=== PATIENT | male | born 1955 | race Caucasian/White ===

== ENCOUNTER 2023-04-25 14:04 | Emergency (ER) | payer MEDICARE, OTHER, SELFPAY ==
--- NOTE | ~2023-04-25 | XR_ITS ---
EXAMINATION: XR chest 2V Exam Date/Time: 04/25/2023 14:20 CDT HISTORY: cough/wheezing x 1 month post covid Comparison: 11/26/2018. RESULT: Lines, tubes, and devices: Left chest pacer with intact leads. Lungs and pleura: Clear. Cardiomediastinal silhouette: Stable. Other: No acute osseous or upper abdominal finding. IMPRESSION: No acute cardiopulmonary process. Reviewed, dictated and finalized at location K.
[2023-04-25 14:18] VITALS: BP 168/85; PULSE 102; RESP 18; TEMP 36.9; O2SAT 96
--- NOTE | 2023-04-25 14:28 | ED.GENADULT ---
HPI - General Adult General Chief complaint: Upper Respiratory Infection Stated complaint: wheezing,cough Source: patient and family Mode of arrival: ambulatory Limitations: no limitations History of Present Illness HPI narrative: Patient presents for evaluation of respiratory symptoms since the end of March. He indicates he tested positive for COVID at the end of March but has had residual respiratory symptoms since that time. Symptoms include productive cough of yellow sputum, shortness of breath, and wheezing. Denies any fever, chills, nausea, vomiting, chest pain or leg swelling. He has an albuterol inhaler and has been using it about every 4 hours. He is a former smoker, with quit date about forty years ago. No recent sick contacts since his COVID diagnosis. Related Data Home Medications Medication Instructions Recorded Confirmed albuterol sulfate 90 mcg/actuation 2 puff inhalation Q4H PRN Wheezing 04/25/23 04/25/23 aerosol inhaler aspirin 81 mg chewable tablet 81 mg PO DAILY 04/25/23 04/25/23 finasteride 5 mg tablet 5 mg PO DAILY 04/25/23 04/25/23 fluticasone propionate 50 See Rx Instructions .Route .COMPLEX 04/25/23 04/25/23 mcg/actuation nasal spray,suspension simvastatin 20 mg tablet 20 mg PO DAILY 04/25/23 04/25/23 tamsulosin 0.4 mg capsule 0.4 mg PO DAILY 04/25/23 04/25/23 Allergies Allergy/AdvReac Type Severity Reaction Status Date / Time Sulfa (Sulfonamide Allergy Intermediate hives Verified 04/25/23 14:21 Antibiotics) Review of Systems Review of Systems: CONSTITUTIONAL: Denies fever, chills, or sweats. EYES: Denies visual changes, redness, or discharge. ENT: Denies rhinorrhea, congestion, sore throat, or otalgia. CARDIOVASCULAR: Denies chest pain, palpitations, or edema. RESPIRATORY: reports cough, shortness of breath and wheezing. GASTROINTESTINAL: Denies abdominal pain, nausea, vomiting, or diarrhea. GENITOURINARY: Denies dysuria or hematuria. SKIN: Denies rash or itching. MUSCULOSKELETAL: Denies back pain, joint pain, or myalgia. NEUROLOGIC: Denies headache, numbness, dizziness, or weakness. PSYCHIATRIC: Denies anxiety or depression. [facility] Past Medical History Medical History Hyperlipidemia Surgical History Surgical History History of permanent cardiac pacemaker placement Family History Family History (Updated 04/25/23 @ 15:34 by Helder He [facility], ) Mother Family history non-contributory Social History Social History Smoking status: Former smoker Substance use: never Living arrangements: with family Gender identity (if verbalized by the patient): Male Sexual Orientation (if Verbalized by the Patient): Straight or Heterosexual Spiritual care concerns: No Exam Narrative: GENERAL: Well-appearing, well-nourished, and in no acute distress. HEAD: Normocephalic, atraumatic. EYES: PERRLA and EOMI. ENT: Nares clear, no rhinorrhea or epistaxis. Mucous membranes moist. Oropharynx without tonsillar hypertrophy exudate or other lesions. Bilateral TMs pearly guerin nonbulging NECK: Supple. No adenopathy or masses. No carotid bruits or JVD CHEST: Clear to auscultation. No respiratory distress. No wheezes rales or rhonchi HEART: Regular rate and rhythm. No murmur heard. Normal peripheral pulses. ABDOMEN: Soft, nontender, nondistended, normal active bowel sounds. EXTREMITIES: Normal range of motion. No edema. SKIN: Warm, dry, no rash. NEURO: No focal deficits. Alert and oriented x3. PSYCH: Normal mood and affect. Course Course Emergency Course: This is a 67-year-old female who presented for evaluation of respiratory symptoms following COVID. He was tachycardic during the time of his initial vital signs, however on my exam his heart rate normalized. CXR perfor
[2023-04-25] MEDS: ALBUTEROL SULFATE NEB 2.5 MG/3 ML INH INHALATION (14:53)
[2023-04-25] MEDS: methylPREDNISolone SOD SUCC 125 MG VIAL IM (14:54)
[2023-04-25] MEDS: IPRATROPIUM BR 0.02% INH SOLN 0.5 MG/2.5 ML VIAL INHALATION (14:54)
--- NOTE | 2023-04-25 14:56 | PC.NURSE ---
1453 Scanner unavailable to scan medications, patient verified by name and birthdate; meds checked and verified by 2nd person before administering.
[2023-04-25 15:13] VITALS: PULSE 88; RESP 18; O2SAT 97
== END 2023-04-25 15:25 | disposition home or self-care (01) ==
PROVIDERS: Emergency Provider Nurse Practitioner
DX: R06.02 Shortness of breath (principal); E78.5 Hyperlipidemia, unspecified; Z79.899 Other long term (current) drug therapy; Z79.82 Long term (current) use of aspirin; Z87.891 Personal history of nicotine dependence; Z86.16 Personal history of COVID-19
CPT/HCPCS: 71046; 94640; 96372; 99213; G0463; J2930

== ENCOUNTER 2023-07-01 08:43 | Emergency (ER) | payer MEDICARE, OTHER, SELFPAY ==
--- NOTE | ~2023-07-01 | XR_ITS ---
EXAMINATION: XR chest 2V DATE: 07/01/2023 09:33 INDICATION: Fever, cough, and congestion. TECHNIQUE: Frontal and lateral views of the chest were obtained. COMPARISON: Chest 2 views 04/25/2023, chest CT 11/24/2018 FINDINGS: There is mild atelectasis at the lung bases. No pleural effusion or pneumothorax. The heart size is normal. There is a left chest wall pacer with leads in the right atrium and right ventricle. IMPRESSION: 1. Mild atelectasis at the lung bases. Reviewed, dictated and finalized at location A. OND BLENDER
[2023-07-01 09:05] VITALS: BP 158/75; PULSE 72; RESP 16; TEMP 36.7; O2SAT 98
--- NOTE | 2023-07-01 09:15 | ED.URI ---
HPI - URI/Sore Throat General Chief Complaint: Upper Respiratory Infection Stated Complaint: Cough;Fever Time Seen by Provider: 07/01/23 09:10 Source: patient Mode of arrival: ambulatory Limitations: no limitations History of Present Illness HPI Narrative: Jose is a 68-year-old male patient presenting to the clinic today with complaints of cough and fever times 2-3 days. He reports he did at home COVID testing was negative. Cough is nonproductive. denies any shortness of breath currently but states when he gets to coughing he does feel short of breath. States fever last night was high as 101. No history of asthma, bronchitis, or COPD. MD elicited complaint: fever, cough and nasal congestion Related Data Home Medications Medication Instructions Recorded Confirmed albuterol sulfate 90 mcg/actuation 2 puff inhalation Q4H PRN Wheezing 04/25/23 07/01/23 aerosol inhaler aspirin 81 mg chewable tablet 81 mg PO DAILY 04/25/23 07/01/23 finasteride 5 mg tablet 5 mg PO DAILY 04/25/23 07/01/23 fluticasone propionate 50 See Rx Instructions .Route .COMPLEX 04/25/23 07/01/23 mcg/actuation nasal spray,suspension simvastatin 20 mg tablet 20 mg PO DAILY 04/25/23 07/01/23 tamsulosin 0.4 mg capsule 0.4 mg PO DAILY 04/25/23 07/01/23 cholecalciferol (vitamin D3) 25 50 mcg PO DAILY 06/23/23 07/01/23 mcg (1,000 unit) capsule dapagliflozin propanediol 5 mg 5 mg PO DAILY 06/23/23 07/01/23 tablet (Farxiga) lisinopril 10 mg tablet 10 mg PO .PRN 06/23/23 07/01/23 Allergies Allergy/AdvReac Type Severity Reaction Status Date / Time Sulfa (Sulfonamide Allergy Intermediate hives Verified 07/01/23 09:00 Antibiotics) Review of Systems Review of Systems: Pertinent positives per HPI. Patient denies any rash, headache, visual changes, dizziness, shortness of breath, chest pain, palpitations, nausea, vomiting, diarrhea, constipation, abdominal pain, or any urinary issues. [facility] Past Medical History Medical History (Updated 07/01/23 @ 09:46 by Sekou Reynoso APRN) FSGS (focal segmental glomerulosclerosis) Hyperlipidemia Surgical History Surgical History History of permanent cardiac pacemaker placement Family History Family History (Updated 04/25/23 @ 15:34 by Helder He, [facility], ) Mother Family history non-contributory Social History Social History (Updated 06/23/23 @ 11:03 by Fifi Gallardo MA) Smoking status: Former smoker Substance use: never Do You Feel Safe in your Home?: Yes Lack of Transportation: No Lack of Food: Never True Current Housing: I Have Housing Concerned About Future Housing: No Difficulty Paying Gas/Electric Bills: No Difficulty Paying for Meds: No Currently Unemployed: No Education: High School Diploma/GED Difficulty w/ Childcare or Family Care: No Living arrangements: with family Gender identity (if verbalized by the patient): Male Sexual Orientation (if Verbalized by the Patient): Straight or Heterosexual Spiritual care concerns: No Comments At the time of my signature, I reviewed and agree with the nursing past medical, surgical, social, and family history. There is no relevant family history pertinent to the patient complaint. Exam Narrative: General: Well-developed, well nourished, in no apparent distress Head: Normocephalic, atraumatic Eyes: Pupils equally round and reactive to light bilaterally, EOM intact, sclera and conjunctive clear, no discharge, lids normal Ears: TMs intact and clear, ear canals clear, no drainage, grossly hearing normal. Nose: Nares patent, clear nasal discharge, no inflammation, no sinus tenderness. Mouth: Oral pharynx without lesions or masses, good dentition, MMM. Neck: Supple, trachea midline, no enlargement of anterior or posterior cervical nodes, no thyroid masses or goiter palpable. Cardio: Regular rate and rhythm, s1 and s2 normal, no
== END 2023-07-01 09:50 | disposition home or self-care (01) ==
PROVIDERS: Emergency Provider Nurse Practitioner Family; PCP Student in an Organized Health Care Education/Training Program
DX: B34.9 Viral infection, unspecified (principal); J06.9 Acute upper respiratory infection, unspecified; E78.5 Hyperlipidemia, unspecified; Z79.899 Other long term (current) drug therapy; Z87.891 Personal history of nicotine dependence
CPT/HCPCS: 71046; 87804; 99213; G0463

== ENCOUNTER 2024-07-03 09:14 | Emergency (ER) | payer MEDICARE, OTHER, SELFPAY ==
[2024-07-03] VITALS (43 sets, daily range): BP systolic 133–167; BP diastolic 45–142; PULSE 62–86; RESP 10–24; TEMP 36.7–37.2; O2SAT 93–100
[2024-07-03 09:46] LABS: Basophils Absolute Auto 0.1 K/mm3 (0.0-0.1); Basophils Percent Auto 0.9 % (0.2-1.2); Eosinophils Absolute Auto 0.3 K/mm3 (0-0.3); Eosinophils Percent Auto 3.5 % (0-4.4); Hematocrit 23.6 % (42.0-52.0); Immature Granulocyte Absolute 0.06 K/mm3 (0.00-0.031); Immature Granulocyte Percent A 0.7 % (0-0.5); Lymphocytes Absolute Auto 0.71 K/mm3 (0.9-3.2); Lymphocytes Percent Auto 8.2 % (18.3-44.2); Mean Corpuscular Hemoglobin 19.5 pg (26-34); Mean Corpuscular Volume 69.8 fl (80-100); Mean Platelet Volume 9.4 fl (7.4-10.4); Monocytes Absolute Auto 0.7 K/mm3 (0.1-0.6); Monocytes Percent Auto 7.5 % (2.6-8.5); Neutrophils Absolute Auto 6.8 K/mm3 (1.3-6.7); Neutrophils Percent Auto 79.2 % (45.5-73.1); Platelet Count Result 297 k/mm3 (150-375); Red Blood Count 3.38 M/mm3 (4.6-6.20); Red Cell Distribution Width 15.5 % (11.5-14.5); White Blood Count 8.6 K/mm3 (4.5-10.0)
[2024-07-03 09:54] LABS: Hemoglobin 6.6 g/dL (14.0-18.0)
[2024-07-03 09:57] LABS: Alanine Aminotransferase 16 U/L (6-50); Albumin Level 3.8 g/dL (3.5-5.1); Alkaline Phosphatase 68 U/L (38-126); Anion Gap 5 mmol/L (4-12); Aspartate Amino Transferase 20 U/L (17-59); Bilirubin,Total 0.5 mg/dL (0.2-1.3); Blood Urea Nitrogen 25 mg/dL (9-20); Calcium 10.4 mg/dL (8.4-10.2); Carbon Dioxide 21 mmol/L (22-30); Chloride 108 mmol/L (98-107); Estimated CRCL calculation 40 ml/min; Estimated Glomerular Filt Rate 43; Glucose 178 mg/dL (65-110); Sodium 134 mmol/L (137-145)
[2024-07-03 10:02] LABS: Anisocytosis 1+; Hypochromasia 2+; Microcytosis 1+ (NORMAL); Ovalocytes 1+; Platelet Estimate Adequate (Adequate); Schistocytes None Seen
[2024-07-03 10:04] LABS: Prothrombin Time 13.8 Seconds (11.1-14.7)
[2024-07-03 11:55] LABS: Immature Reticulocyte Fraction 24.2 % (3.0-15.9); Reticulocyte Hemoglobin Conten 15.3 pg (28.2-36.6); Reticulocyte Percent 2.34 % (0.7-4.3); Reticulocytes Absolute 0.08 10^6/uL (0.02-0.10)
[2024-07-03 12:07] LABS: Iron 12 ug/dL (49-181)
[2024-07-03 12:16] LABS: Percent Iron Saturation 2 % (20-50); TOTAL IRON BINDING CAPACITY 509 ug/dL (265-497)
[2024-07-03] MEDS: SODIUM CHLORIDE 0.9% IV 250 ML 30 ML IV CONT (12:48)
[2024-07-03] MEDS: TUBING, BLOOD SET 1 EACH XX (12:49)
[2024-07-03 16:12] LABS: Hemoglobin 7.5 g/dL (14.0-18.0)
--- NOTE | 2024-07-03 17:15 | ED_ITS ---
HPI - General Adult General Chief complaint: Recheck/Abnormal Lab/Rx Stated complaint: low hgb Time Seen by Provider: 07/03/24 09:21 Source: patient and family Mode of arrival: ambulatory Limitations: no limitations History of Present Illness HPI narrative: 69-year-old with a history of hypertension, diabetes here with a complaint of low hemoglobin. Patient states he had a routine blood work done few days ago and was called by his primary doctor with the emergency room. He states his hemoglobin was 6.6. He denies having any abdominal pain, black color stool or rectal bleeding. Patient states that he had colonoscopy recently which was normal and also had a Cologuard test which was negative. He denies being lightheaded or dizzy. Onset (ago): day(s) (1) Related Data Home Medications ?Medication ?Instructions ?Recorded ?Confirmed ?Last Taken ?Type albuterol sulfate 90 mcg/actuation 2 puff inhalation Q4H PRN Wheezing 04/25/23 01/05/24 Unknown History aerosol inhaler aspirin 81 mg chewable tablet 81 mg PO DAILY 04/25/23 01/05/24 Unknown History finasteride 5 mg tablet 5 mg PO DAILY 04/25/23 01/05/24 Unknown History fluticasone propionate 50 See Rx Instructions .Route .COMPLEX 04/25/23 01/05/24 Unknown History mcg/actuation nasal spray,suspension simvastatin 20 mg tablet 20 mg PO DAILY 04/25/23 01/05/24 Unknown History tamsulosin 0.4 mg capsule 0.4 mg PO DAILY 04/25/23 01/05/24 Unknown History cholecalciferol (vitamin D3) 25 50 mcg PO DAILY 06/23/23 01/05/24 Unknown History mcg (1,000 unit) capsule dapagliflozin propanediol 5 mg 5 mg PO DAILY 06/23/23 01/05/24 Unknown History tablet (Farxiga) lisinopril 10 mg tablet 10 mg PO .PRN 06/23/23 01/05/24 Unknown History Allergies Allergy/AdvReac Type Severity Reaction Status Date / Time Sulfa (Sulfonamide Allergy Intermediate hives Verified 07/03/24 09:26 Antibiotics) Review of Systems 2 Review of Systems: All systems reviewed & are unremarkable except as noted in HPI and below Constitutional: Constitutional: Reports no additional constitutional complaints Eyes: Eyes: Reports no additional eye complaints ENT: Reports system reviewed and no additional complaints, except as documented Cardiovascular: Cardiovascular: Reports no additional cardiovascular complaints Respiratory: Respiratory: Reports no additional respiratory complaints Gastrointestinal: Gastrointestinal: Reports no additional gastrointestinal complaints Genitourinary: Genitourinary: Reports no additional male genitourinary complaints Musculoskeletal: Musculoskeletal: Reports no additional musculoskeletal complaints Integumentary/Breasts: Skin/Breast: Reports system reviewed and no additional complaints, except as docu Neurologic: Reports system reviewed and no additional complaints, except as documented PMFSH Past Medical History Medical History FSGS (focal segmental glomerulosclerosis) Hyperlipidemia Surgical History Surgical History History of permanent cardiac pacemaker placement Family History Family History Mother Family history non-contributory Social History Social History (Updated 06/23/23 @ 11:03 by Fifi Gallardo MA) Smoking status: Former smoker Substance use: never Do You Feel Safe in your Home?: Yes Lack of Transportation: No Lack of Food: Never True Current Housing: I Have Housing Concerned About Future Housing: No Difficulty Paying Gas/Electric Bills: No Difficulty Paying for Meds: No Currently Unemployed: No Education: High School Diploma/GED Difficulty w/ Childcare or Family Care: No Living arrangements: with family Gender identity (if verbalized by the patient): Male Sexual Orientation (if Verbalized by the Patient): Straight or Heterosexual Spiritual care concerns: No Exam 2 Narrative: GENERAL: Well-appearing, well-nourished, and in no acute distress. HEAD: Normocephalic, atraumatic. EYES: PERRLA and EOMI. ENT: Nares clear, no rhinorrhea or epistaxis. Mucous membranes moist. NECK: Supple. CHEST: Clear to auscultation. No respiratory distress. HEART: Regular rate and rhythm. No murmur heard. Normal peripheral pulses. ABDOMEN: Soft, nontender, nondistended, normal active bowel sounds. EXTREMITIES: Normal range of motion. No edema. SKIN: Warm, dry, no rash. NEURO: No focal deficits. Alert and oriented x3. PSYCH: Normal mood and affect. Course Course Emergency Course: Patient came with a low hemoglobin. His physical exam was unremarkable has no GI bleed . Will transfuse him with 1 unit of PRBC. His rpt H/H is 7.5 /26 he is feeling much better , Did inform him about his Iron levels which are low recommended to follow with his PMD in the next few days . Notified Oncall Dr. Taj Anna will follow up in the office. Vital Signs Vital signs: Vital Signs Temperature 37.0 C 07/03/24 09:22 Pulse Rate 77 07/03/24 09:22 Respiratory Rate 20 07/03/24 09:22 Blood Pressure 154/84 H 07/03/24 09:22 Pulse Oximetry 100 07/03/24 09:22 Oxygen Delivery Room Air 07/03/24 09:22 Temperature 36.7 C 07/03/24 14:12 Pulse Rate 63 07/03/24 14:12 Respiratory Rate 18 07/03/24 14:12 Blood Pressure 155/61 H 07/03/24 15:47 Pulse Oximetry 99 07/03/24 16:30 Oxygen Delivery Room Air 07/03/24 09:22 Medical Decision Making Vital Signs Vital Signs: Vital Signs Temperature 37.0 C 07/03/24 09:22 Pulse Rate 77 07/03/24 09:22 Respiratory Rate 20 07/03/24 09:22 Blood Pressure 154/84 H 07/03/24 09:22 Pulse Oximetry 100 07/03/24 09:22 Oxygen Delivery Room Air 07/03/24 09:22 Temperature 36.7 C 07/03/24 14:12 Pulse Rate 63 07/03/24 14:12 Respiratory Rate 18 07/03/24 14:12 Blood Pressure 155/61 H 07/03/24 15:47 Pulse Oximetry 99 07/03/24 16:30 Oxygen Delivery Room Air 07/03/24 09:22 Lab Data 07/03/24 16:07 07/03/24 09:39 Labs: Lab Results 07/03/24 07/03/24 07/03/24 Range/Units 09:39 11:37 11:39 WBC 8.6 (4.5-10.0) K/mm3 RBC 3.38 L (4.6-6.20) M/mm3 Hgb 6.6 L* Pending (14.0-18.0) g/dL Hct 23.6 L Pending (42.0-52.0) % MCV 69.8 L (80-100) fl MCH 19.5 L (26-34) pg MCHC 28.0 L (32-36) g/dl RDW 15.5 H (11.5-14.5) % Plt Count 297 (150-375) k/mm3 MPV 9.4 (7.4-10.4) fl Immature Gran % (Auto) 0.7 H (0-0.5) % Neut % (Auto) 79.2 H (45.5-73.1) % Lymph % (Auto) 8.2 L (18.3-44.2) % [place] % (Auto) 7.5 (2.6-8.5) % Eos % (Auto) 3.5 (0-4.4) % Baso % (Auto) 0.9 (0.2-1.2) % Lymph # (Auto) 0.71 L (0.9-3.2) K/mm3 [place] # (Auto) 0.7 H (0.1-0.6) K/mm3 Eos # (Auto) 0.3 (0-0.3) K/mm3 Baso # (Auto) 0.1 (0.0-0.1) K/mm3 Abs Immat Gran (auto) 0.06 H (0.00-0.031) K/mm3 Absolute Neuts (auto) 6.8 H (1.3-6.7) K/mm3 Absolute Nucleated RBC 0.000 (0.0-0.012) K/mm3 Nucleated RBC % 0.0 (0.0-0.2) % Platelet Estimate Adequate (Adequate) Hypochromasia 2+ Anisocytosis 1+ Microcytosis 1+ (NORMAL) Ovalocytes 1+ Schistocytes None seen Absolute Retic 0.08 (0.02-0.10) 10^6/uL Percent Retic 2.34 (0.7-4.3) % Immature Retic Fraction 24.2 H (3.0-15.9) % Retic Hgb Content 15.3 L (28.2-36.6) pg PT 13.8 (11.1-14.7) Seconds INR 1.0 Sodium 134 L (137-145) mmol/L Potassium 4.0 (3.4-5.0) mmol/L Chloride 108 H (98-107) mmol/L Carbon Dioxide 21 L (22-30) mmol/L Anion Gap 5 (4-12) mmol/L BUN 25 H (9-20) mg/dL Creatinine 1.60 H (0.7-1.3) mg/dL Estim Creat Clear Calc 40 ml/min Estimated GFR 43 L (59 - ) Glucose 178 H (65-110) mg/dL Calcium 10.4 H (8.4-10.2) mg/dL Iron 12 L (49-181) ug/dL TIBC 509 H (265-497) ug/dL % Saturation 2 L (20-50) % Total Bilirubin 0.5 (0.2-1.3) mg/dL AST 20 (17-59) U/L ALT 16 (6-50) U/L Alkaline Phosphatase 68 (38-126) U/L Total Protein 7.0 (6.3-8.2) g/dL Albumin 3.8 (3.5-5.1) g/dL Vitamin B12 423.0 (239-931) pg/mL RBC Folate Pending Blood Type O Negative Antibody Screen Negative Crossmatch See Detail 07/03/24 Range/Units 16:07 WBC (4.5-10.0) K/mm3 RBC (4.6-6.20) M/mm3 Hgb 7.5 L (14.0-18.0) g/dL Hct 26.0 L (42.0-52.0) % MCV (80-100) fl MCH (26-34) pg MCHC (32-36) g/dl RDW (11.5-14.5) % Plt Count (150-375) k/mm3 MPV (7.4-10.4) fl Immature Gran % (Auto) (0-0.5) % Neut % (Auto) (45.5-73.1) % Lymph % (Auto) (18.3-44.2) % [place] % (Auto) (2.6-8.5) % Eos % (Auto) (0-4.4) % Baso % (Auto) (0.2-1.2) % Lymph # (Auto) (0.9-3.2) K/mm3 [place] # (Auto) (0.1-0.6) K/mm3 Eos # (Auto) (0-0.3) K/mm3 Baso # (Auto) (0.0-0.1) K/mm3 Abs Immat Gran (auto) (0.00-0.031) K/mm3 Absolute Neuts (auto) (1.3-6.7) K/mm3 Absolute Nucleated RBC (0.0-0.012) K/mm3 Nucleated RBC % (0.0-0.2) % Platelet Estimate (Adequate) Hypochromasia Anisocytosis Microcytosis (NORMAL) Ovalocytes Schistocytes Absolute Retic (0.02-0.10) 10^6/uL Percent Retic (0.7-4.3) % Immature Retic Fraction (3.0-15.9) % Retic Hgb Content (28.2-36.6) pg PT (11.1-14.7) Seconds INR Sodium (137-145) mmol/L Potassium (3.4-5.0) mmol/L Chloride (98-107) mmol/L Carbon Dioxide (22-30) mmol/L Anion Gap (4-12) mmol/L BUN (9-20) mg/dL Creatinine (0.7-1.3) mg/dL Estim Creat Clear Calc ml/min Estimated GFR (59 - ) Glucose (65-110) mg/dL Calcium (8.4-10.2) mg/dL Iron (49-181) ug/dL TIBC (265-497) ug/dL % Saturation (20-50) % Total Bilirubin (0.2-1.3) mg/dL AST (17-59) U/L ALT (6-50) U/L Alkaline Phosphatase (38-126) U/L Total Protein (6.3-8.2) g/dL Albumin (3.5-5.1) g/dL Vitamin B12 (239-931) pg/mL RBC Folate Blood Type Antibody Screen Crossmatch Critical Care Time Critical Care Time Critical Care Time: Yes Total Critical Care Time: 45 Discharge Plan Discharge Clinical Impression: Anemia Qualifiers: Anemia type: iron deficiency Iron deficiency anemia type: unspecified iron deficiency Qualified Code(s): D50.9 - Iron deficiency anemia, unspecified Patient Disposition: Home, Self-Care Condition: Stable Instructions: Anemia (ED) Additional Instructions: Continue home medications, follow-up with your primary doctor for further workup of iron-deficiency anemia. Patient Language: [place] Prescriptions: No Action tamsulosin 0.4 mg capsule 0.4 mg PO DAILY simvastatin 20 mg tablet 20 mg PO DAILY albuterol sulfate 90 mcg/actuation HFA aerosol inhaler 2 puff INHALATION Q4H PRN (Reason: Wheezing) fluticasone propionate 50 mcg/actuation spray,suspension See Rx Instructions .ROUTE .COMPLEX Rx Instructions: see instructions finasteride 5 mg tablet 5 mg PO DAILY aspirin [Baby Aspirin] 81 mg Tablet,Chewable 81 mg PO DAILY Farxiga 5 mg tablet 5 mg PO DAILY lisinopril 10 mg tablet 10 mg PO .PRN cholecalciferol (vitamin D3) 25 mcg (1,000 unit) capsule 50 mcg PO DAILY Follow-up/Referrals: Fred,DO Jayson [Primary Care Provider] - Time of Disposition: 17:22
[2024-07-04 14:09] LABS: Red Blood Cell Folate 894 ng/mL RBC (>280)
--- OUTSIDE RECORDS SUMMARY | 2024-07-10 19:58 | XMS_ITS | Encounter Summary ---
Author Organization [facility] Address [address] [place] [address]. [place] [address] [place] [address] Care Team Providers Care Scrap Burner Name Role Phone Jayson Ibarra DO Primary Care Provider + Encounter Details Date Type Department Care Team (Latest Contact Info) Description 01/25/2024 Scan [facility] Scanned, Doc Med Group Social History Tobacco Use Types Packs/Day Years Used Date Smoking Tobacco: Former Cigarettes 1 10 1982 Passive Smoke Exposure: Never Smokeless Tobacco: Never Alcohol Use Standard Drinks/Week Comments Not Currently 0 (1 standard drink = 0.6 oz pur e alcohol) PHQ-2 Answer Date Recorded Patient Health Questionnaire-2 Score 0 09/21/2023 Sex and Gender Information Value Date Recorded Sex Assigned at Not on file Legal Sex Male 10:57 AM CDT Gender Identity Not on file Sexual Orientation Not on file Occupation Industry Job Start Date Job End Date Not on file Not on file Not on file Not on file documented as of this encounter Plan of Treatment Upcoming Encounters Date Type Department Care Team (Late st Contact Info) Description 07/11/2024 8:20 AM ONLINE MARKETING SPECIALIST Office Visit [facility] Family & Internal Medicine [facility] [address] [place] [address] Jayson Ibarra DO [facility] [place] [address] documented as of this encounter Visit Diagnoses Not on filedocumented in this encounter Care Teams Scrap Burner Relationship Specialty Start Date End Date Jayson Ibarra, [facility] [place] [address] PCP - General FAMILY PRACTICE 05/17/23 documented as of this encounter
--- OUTSIDE RECORDS SUMMARY | 2024-07-10 19:58 | XMS_ITS | Encounter Summary ---
Author Organization [facility] Address [address] [place] [address]. [place] [address] [place] [address] Care Team Providers Care Content Editor Name Role Phone Jayson Ibarra DO Primary Care Provider + Encounter Details Date Type Department Care Team (Latest Contact Info) Description 08/23/2023 Travel Social History Tobacco Use Types Packs/Day Years Used Date Smoking Tobacco: Former Cigarettes 1 1982 Passive Smoke Exposure: Never Smokeless Tobacco: Never Alcohol Use Standard Drinks/Week Comments Not Currently 0 (1 standard drink = 0.6 oz pur e alcohol) PHQ-2 Answer Date Recorded Patient Health Questionnaire-2 Score 0 05/17/2023 Sex and Gender Information Value Date Recorded [...] st Contact Info) Description 07/11/2024 8:20 AM INVENTORY MANAGEMENT SPECIALIST Office Visit [facility] Family & Internal Medicine [facility] [address] [place] [address] Jayson Ibarra DO [address] [place] [address] documented as of this encounter Visit Diagnoses Not on filedocumented in this encounter Care Teams Content Editor Relationship Specialty Start Date End Date Jayson Ibarra DO [address] [id number] PCP - General FAMILY PRACTICE 05/17/23 documented as of this encounter
--- OUTSIDE RECORDS SUMMARY | 2024-07-10 19:58 | XMS_ITS | Encounter Summary ---
Author Organization [facility] Address [address] [place] [address]. [place], [place] [address] [place] [address] Care Team Providers Care New Car Make Ready Mechanic Name Role Phone Jayson Ibarra DO Primary Care Provider + Reason for Visit * Reason Onset Date Comments Problem 08/23/2023 Cough, congestio n, sore throat Encounter Details Date Type Department Care Team (Late st Contact Info) Description 08/23/2023 Telephone [facility] Medical Group Family & Internal Medicine [place] [phone] [place] [phone] Breanne Forman FNP [address] [place] [address] [phone] Problem (Cough, congestion, sore throat) Social History Tobacco Use Types Packs/Day Years Used Date Smoking Tobacco: Former Cigarettes 1 10 3 1982 Passive Smoke Exposure: Never Smokeless Tobacco: [...] on file documented as of this encounter Progress Notes * Vanessa Cruz MA - 08/23/2023 7:44 AM CST The patient has the following symptom(s): severe cough, sore throat, no fever, congestion with yellow drainage and settled into chest. Symptom(s) Started: 2-15-24 OTC Medications tried: sinus max, inhaler, codeine cough syrup, vicks vapor rub Have you been seen with-in the past 30 days for these same symptoms? No If so, where? N/A Home Covid test: yes-Negative result Call back #: [phone] Allergies: see below Allergies Allergen Reactions Sulfa Antibiotics Rash Pharmacy: [facility] [address] [[id number]] Appt scheduled. Patient to come in for office visit for exam. /LA, RMA ST AND REPERTOIRE MANAGER ST AND REPERTOIRE MANAGER documented in this encounter Plan of Treatment Upcoming Encounters Date Type Department Care Team (Late st Contact Info) Description 07/11/2024 8:20 AM ARTIST AND REPERTOIRE MANAGER Office Visit [facility] Medical Group Family & Internal Medicine - [place] [address] [place] [address] Jayson Ibarra DO [address] [place] [address] documented as of this encounter Visit Diagnoses Not on filedocumented in this encounter Care Teams New Car Make Ready Mechanic Relationship Specialty Start Date End Date Jayson Ibarra DO [address] [place] [address] PCP - General FAMILY PRACTICE 05/17/23 documented as of this encounter
--- OUTSIDE RECORDS SUMMARY | 2024-07-10 19:58 | XMS_ITS | Encounter Summary ---
Author Organization [facility] Address [facility]. [place], [place] [address] [place] [address] Care Team Providers Care Electromechanical Assembly Technician Name Role Phone Jayson Ibarra DO Primary Care Provider + Reason for Visit * Reason Comments URI Bilateral Ear conges tion (more right than left), sinus congestion. Sx x1 week. The patient states he is taking mucinex-d max and nasal spray. Encounter Details Date Type Department Care Team (Late st Contact Info) Description 05/05/2024 2:40 PM CDT Telemedicine [facility] Medical Group Family & Internal Medicine [address] [address] Jayson Ibarra DO [address] [place] [address] URI (Bilateral Ear congestion (more right than left), sinus congestion. Sx x1 week. The patient states he is taking mucinex-d max and nasal spray. ) Social History Tobacco Use Types Packs/Day Years Used Date Smoking Tobacco: Former Cigarettes 1 10 1982 Passive Smoke Exposure: Yes Smokeless Tobacco: Never Alcohol Use Standard Drinks/Week [...] as of this encounter Progress Notes * Jayson Ibarra, DO - 05/05/2024 2:40 PM CDT GENERAL OFFICE VISIT Encounter Date: 05/05/2024 I introduced and identified myself, received verbal consent from the patient to proceed with this video visit and made the patient aware that the same confidentiality and senior information security analyst practices apply. The patient joined the video visit from Home. I completed the virtual visit from Office. The following clinical staff helped with this visit MA: Kia Booth . Total Time Spent in Minutes: 4 Chief Complaint: 68-year-old male presents for URI (Bilateral Ear congestion (more right than left), sinus congestion. Sx x1 week. The patient states he is taking mucinex-d max and nasal spray. ) HPI: Patient states symptoms have been present for 7 days. Symptoms include sinus pressure and ear congestion on both sides. Pertinent negatives include N/V, Fevers, Chills, SOB, Myalgias, and Rash. Patient has no sick contacts. OTC medications tried include Mucinex-D and Flonase. Review of Systems Constitutional: Negative for fever. HENT: See HPI Respiratory: Negative for cough. Patient Active Problem List Diagnosis Cardiac pacemaker in situ Left bundle branch block (LBBB) Second degree AV block, Mobitz type II Type 2 diabetes mellitus without complication, without long-term current use of insulin ([facility]/HCC HHS/HCC) Hypertension associated with type 2 diabetes mellitus (CMS/HCC HHS/HCC) Seasonal allergies Benign prostatic hyperplasia with lower urinary tract symptoms, symptom details unspecified Stage 3a chronic kidney disease (CKD) (CMS/HCC HHS/HCC) Hyperlipidemia associated with type 2 diabetes mellitus (CMS/HCC HHS/HCC) History of permanent cardiac pacemaker placement Past Medical History: Diagnosis Date Chronic kidney disease Diabetes mellitus (CMS/HCC HHS/HCC) Enlarged prostate FSGS (focal segmental glomerulosclerosis) Infectious viral hepatitis 1999 succussful treatment Hepatitis C Past Surgical History: Procedure Laterality Date PACEMAKER 2019 Family History Problem Relation Name Age of Onset Heart Disease Mother Omayra Alexandre Stroke Father Giuseppe Alexandre Heart Attack Father Giuseppe Alexandre Social History Socioeconomic History Marital status: Spouse name: Linn Number of children: 2 Years of education: Not on file Highest education level: Not on file Occupational History Comment: [employer] Tobacco Use Smoking status: Former Current packs/day: 0.00 Average packs/day: 1 pack/day for 10.0 years (10.0 ttl pk-yrs) Types: Cigarettes Start date: 1972 Quit date: 1982 Years since quittin.8 Passive exposure: Yes Smokeless tobacco: Never Vaping Use Vaping status: Never Used Substance and Sexual Activity Alcohol use: Not Currently Drug use: Never Sexual activity: Not on file Other Topics Concern Not on file Social History Narrative Not on file Social Drivers of Health Financial Resource Strain: Not on file Food Insecurity: Not on file Transportation Needs: Not on file Physical Activity: Not on file Stress: Not on file Social Connections: Not on file Intimate Partner Violence: Not on file Housing Stability: Not on file Immunization History Administered Date(s) Administered Fluzone High Dose - >Age 65 (Prefilled Syringe) 02/16/2020, 04/30/2021, 04/06/2022, 05/10/2023 Influenza (Generic) 06/05/2012 Influenza Adult (Generic) 07/03/2013, 04/25/2015, 04/15/2017, 04/20/2018 PFIZER COVID-19 (12+) MRNA, LNP-S, PF, GURPREET-SUCROSE, 30 MCG/0.3 ML (COMIRNATY) 07/14/2023 PFIZER COVID-19 (WHITE CAP), MRNA, LNP-S, PF, 30 MCG/0.3 ML GURPREET-SUCROSE, IM 10/22/2021 PFIZER COVID-19 (ORIGINAL FORMULATION, PURPLE CAP) mRNA, LNP-S, PF, 30 MCG/0.3 ML DOSE 08/01/2020, 08/25/2020, 03/29/2021 PFIZER COVID-19 BIVALENT (12+) mRNA, LNP-S, PF, 30 MCG/0.3 ML DOSE 03/26/2022 Pneumococcal (Pneumovax 23) 05/18/2021 Pneumococcal (Prevnar 13) 05/14/2020 Shingrix 10/23/2023 Tdap (Generic) 05/07/2012 Current Outpatient Medications Medication Sig Dispense Refill albuterol sulfate HFA 108 (90 Base) MCG/ACT inhaler Inhale 2 puffs into the lungs every 4 (four) hours as needed. 18 g 5 amoxicillin-clavulanate (AUGMENTIN) 875-125 MG tablet Take 1 tablet (875 mg total) by mouth 2 (two)times daily for 10 days. 20 tablet 0 aspirin EC (ECOTRIN) 81 MG tablet Take 1 tablet (81 mg total) by mouth daily. cholecalciferol (VITAMIN D-[address]) 25 mcg Tab tablet Take 1 tablet (1,000 Units total) by mouth daily. FARXIGA 5 MG Tab take one (1) tablet by mouth daily 30 tablet 2 finasteride (PROSCAR) 5 MG tablet Take 1 tablet (5 mg total) by mouth daily. fluticasone propionate (FLONASE) 50 MCG/ACT nasal spray SHAKE LIQUID AND USE 2 SPRAYS IN EACH NOSTRIL ONCE DAILY. 18.2 mL 5 lisinopril (PRINIVIL) 10 MG tablet Take 1 tablet (10 mg total) by mouth daily. Take as needed simvastatin (ZOCOR) 20 MG tablet Take 1 tablet (20 mg total) by mouth nightly at bedtime. at bedtime 90 tablet 3 tamsulosin (FLOMAX) 0.4 MG Cap Take 1 capsule (0.4 mg total) by mouth nightly at bedtime. benzonatate (TESSALON PERLES) 100 MG capsule Take 1-2 capsules (100-200 mg total) by mouth 3 (three) times daily as needed for Cough. (Patient not taking: Reported on 05/05/2024) 40 capsule 0 No current facility-administered medications for this visit. Current Outpatient Medications on File Prior to Visit Medication Sig albuterol sulfate HFA 108 (90 Base) MCG/ACT inhaler Inhale 2 puffs into the lungs every 4 (four) hours as needed. aspirin EC (ECOTRIN) 81 MG tablet Take 1 tablet (81 mg total) by mouth daily. cholecalciferol (VITAMIN D-[address]) 25 mcg Tab tablet Take 1 tablet (1,000 Units total) by mouth daily. FARXIGA 5 MG Tab take one (1) tablet by mouth daily finasteride (PROSCAR) 5 MG tablet Take 1 tablet (5 mg total) by mouth daily. fluticasone propionate (FLONASE) 50 MCG/ACT nasal spray SHAKE LIQUID AND USE 2 SPRAYS IN EACH NOSTRIL ONCE DAILY. lisinopril (PRINIVIL) 10 MG tablet Take 1 tablet (10 mg total) by mouth daily. Take as needed simvastatin (ZOCOR) 20 MG tablet Take 1 tablet (20 mg total) by mouth nightly at bedtime. at bedtime tamsulosin (FLOMAX) 0.4 MG Cap Take 1 capsule (0.4 mg total) by mouth nightly at bedtime. benzonatate (TESSALON PERLES) 100 MG capsule Take 1-2 capsules (100-200 mg total) by mouth 3 (three) times daily as needed for Cough. (Patient not taking: Reported on 05/05/2024) No current facility-administered medications on file prior to visit. Review of patient's allergies indicates: Allergen Reactions Sulfa Antibiotics Rash Objective: As this is a virtual visit, no formal vitals are able to be obtained. No home vitals or testing device readings are relevant to this visit. Physical Exam Vitals and nursing note reviewed. HENT: Head: Normocephalic and atraumatic. Right Ear: External ear normal. Left Ear: External ear normal. Nose: Nose normal. Eyes: General: No scleral icterus. Conjunctiva/sclera: Conjunctivae normal. Pulmonary: Effort: Pulmonary effort is normal. Skin: General: Skin is dry. Findings: No rash. Neurological: Mental Status: He is alert and oriented to person, place, and time. Psychiatric: Mood and Affect: Mood and affect normal. Assessment & Plan: Jose was seen today for uri. Diagnoses and all orders for this visit: Acute non-recurrent sinusitis, unspecified location - amoxicillin-clavulanate (AUGMENTIN) 875-125 MG tablet; Take 1 tablet (875 mg total) by mouth 2 (two) times daily for 10 days. Discussion/Summary: Will treat as per above; discussed side effect profile. Discussed conservative and expected management. Call back if worsening or not improving as expected. F/u with regular appointments otherwise. Pt v/u. Jayson Ibarra DO documented in this encounter Plan of Treatment Upcoming Encounters Date Type Department Care Team (Late st Contact Info) Description 07/11/2024 8:20 AM GAS STOVE SERVICER HELPER Office Visit [facility] Medical Group Family & Internal Medicine [address] [phone] Jayson Ibarra DO [address] [place] [address] documented as of this encounter Visit Diagnoses Diagnosis Acute non-recurrent sinusitis, unspecified location- Primary documented in this encounter Care Teams Electromechanical Assembly Technician Relationship Specialty Start Date End Date Jayson Ibarra DO [facility] [place] [address] PCP - General FAMILY PRACTICE 05/17/23 documented as of this encounter
--- OUTSIDE RECORDS SUMMARY | 2024-07-10 19:58 | XMS_ITS | Encounter Summary ---
Author Organization [facility] Address [address] [place] [address]. [place], [place] [address] [place] [address] Care Team Providers Care Award Clerk Name Role Phone Jayson Ibarra DO Primary Care Provider + Reason for Visit * Reason Onset Date Comments Medication Problem 05/28/2023 Encounter Details Date Type Department Care Team (Late st Contact Info) Description 05/28/[address] [facility] Family & Internal Medicine [facility] [address] [place] [phone] Jayson Ibarra DO [address] [place] [address] Medication Problem Social History Tobacco Use Types Packs/Day Years [...] as of this encounter Progress Notes * Kia Booth MA - 06/01/2023 9:20 AM CST Spoke with patient and his . Informed them the medication was sent to the pharmacy. ICAL THERAPY ASSISTANT * Jayson Ibarra DO - 05/31/2023 4:40 PM CST Will send out Farxiga then, as it is similar to Jardiance. ICAL THERAPY ASSISTANT * Emily Terry - 05/31/2023 1:48 PM CST Pts is adding the farxiga 5mg or 10 mg to the list of medications that insurance will pay for ICAL THERAPY ASSISTANT * Jayson Ibarra DO - 05/31/2023 1:06 PM CST We can try metformin, however emphasize importance of seeing nephrology as the Jardiance was specifically picked to treated his related symptoms to his kidneys. Metformin nor glipizide will adequately treat his kidneys. Would then recommend changing lisinopril to losartan 25 mg daily to see if thiscan help his kidney issues. Both meds pended. ICAL THERAPY ASSISTANT * Marcela Santiago MA - 05/31/2023 12:36 PM CST Metformin and glipizide are covered per . She only knows because she takes them. Januvia is not covered because it does not have a generic. ICAL THERAPY ASSISTANT * Jayson Ibarra DO - 05/31/2023 12:04 PM CST Was the medication covered by insurance? If not, what did insurance require first? ICAL THERAPY ASSISTANT * Radha Mirza - 05/28/2023 12:16 PM CST Pt called and stated the Jardiance [address] Ibarra is too expensive for ptto take. Pt asking if there are any other options? ICAL THERAPY ASSISTANT documented in this encounter Plan of Treatment Upcoming Encounters Date Type Department Care Team (Late st Contact Info) Description 07/11/2024 8:20 AM PHYSICAL THERAPY ASSISTANT Office Visit [facility] Family & Internal Medicine [place] [address] [place] [address] Jayson Ibarra DO [address] [place] [address] documented as of this encounter Visit Diagnoses Diagnosis Stage 3a chronic kidney disease (CKD) ([facility] HHS/[facility])- Primary Type 2 diabetes mellitus with microalbuminuria, without long-term current use of insulin ([facility]) documented in this encounter Care Teams Award Clerk Relationship Specialty Start Date End Date Jayson Ibarra DO [address] [place] [address] PCP - General FAMILY PRACTICE 05/17/23 documented as of this encounter
--- OUTSIDE RECORDS SUMMARY | 2024-07-10 19:58 | XMS_ITS | Encounter Summary ---
Author Organization [facility] Address [facility] [place] [address] [place] [address] Care Team Providers Care Desk Pen Set Assembler Name Role Phone Jayson Ibarra DO Primary Care Provider + Encounter Details Date Type Department Care Team (Latest Contact Info) Description 05/17/2023 Travel Social History Tobacco Use Types Packs/Day [...] st Contact Info) Description 07/11/2024 8:20 AM HIDE STRETCHER HAND Office Visit [facility] Medical Group Family & Internal Medicine [facility] [address] [place] [address] Jayson Ibarra DO [address] [place] [address] documented as of this encounter Visit Diagnoses Not on filedocumented in this encounter Care Teams Desk Pen Set Assembler Relationship Specialty Start Date End Date Jayson Ibarra DO [address] [place] [address] PCP - General FAMILY PRACTICE 05/17/23 documented as of this encounter
--- OUTSIDE RECORDS SUMMARY | 2024-07-10 19:58 | XMS_ITS | Encounter Summary ---
Author Organization [facility] Address [address] [place] [address]. [place], [place] [address] [place] [address] Care Team Providers Care Review Engineer Name Role Phone Jayson Ibarra DO Primary Care Provider + Reason for Visit * Reason Onset Date Comments Information 03/16/2024 Encounter Details Date Type Department Care Team (Late st Contact Info) Description 03/16/2024 Telephone [facility] Medical [facility] Family & Internal Medicine [facility] [address] [place] [address] Jayson Ibarra DO [address] [place] [address] Information Social History Tobacco Use Types Packs/Day Years [...] Progress Notes * Kia Booth MA - 03/16/2024 4:29 PM CDT Spoke with patient and informed him of results. * Jayson Ibarra DO - 03/16/2024 3:29 PM CDT Keep scheduled appointment; needs to be seen if not effective at scheduled OV. * Kia Smalls - 03/16/2024 7:18 AM CDT Congestion, coughing, one week of increased symptoms. Cough is non productive. [facility] in [place] Prednisone and and antibiotic is requested.(Doxycycline 100mg) documented in this encounter Plan of Treatment Upcoming Encounters Date Type Department Care Team (Late st Contact Info) Description 07/11/2024 8:20 AM INVAS TECH Office Visit [facility] Medical Group Family & Internal Medicine [address] [phone] Jayson Ibarra DO [address] [place] [address] documented as of this encounter Visit Diagnoses Diagnosis Upper respiratory tract infection, unspecified type- Primary documented in this encounter Care Teams Review Engineer Relationship Specialty Start Date End Date Jayson Ibarra DO [address] [place] [address] PCP - General FAMILY PRACTICE 05/17/23 documented as of this encounter
--- OUTSIDE RECORDS SUMMARY | 2024-07-10 19:58 | XMS_ITS | Encounter Summary ---
Author Organization [facility] Address [address] [place] [address]. [place] [address] [place] [address] Care Team Providers Care Remote Encoding Center Manager Name Role Phone Jayson Ibarra DO Primary Care Provider + Reason for Visit * Reason Onset Date Comments Results 06/09/2023 Encounter Details Date Type Department Care Team (Late st Contact Info) Description 06/09/2023 Telephone [facility] Medical [facility] Family & Internal Medicine [facility] [address] [place] [address] Jayson Ibarra DO [address] [place] [address] Results Social History Tobacco Use Types Packs/Day Years [...] as of this encounter Progress Notes * Marcela Santiago MA - 06/09/2023 2:34 PM CST Patient informed tn AL ASSISTED THERAPIST * Marcela Santiago MA - 06/09/2023 2:33 PM CST ----- Message from Jayson Ibarra DO sent at 06/06/2023 10:29 PM ANIMAL ASSISTED THERAPIST ----- Cologuard is negative; repeat in 3 years. AL ASSISTED THERAPIST documented in this encounter Plan of Treatment Upcoming Encounters Date Type Department Care Team (Late st Contact Info) Description 07/11/2024 8:20 AM ANIMAL ASSISTED THERAPIST Office Visit [facility] Family & Internal Medicine - [place] [address] [place] [address] Jayson Ibarra DO [address] [place] [address] documented as of this encounter Visit Diagnoses Not on filedocumented in this encounter Care Teams Remote Encoding Center Manager Relationship Specialty Start Date End Date Jayson Ibarra DO [facility] [address] [place], [place] [phone] PCP - General FAMILY PRACTICE 05/17/23 documented as of this encounter
--- OUTSIDE RECORDS SUMMARY | 2024-07-10 19:58 | XMS_ITS | Encounter Summary ---
Author Organization [facility] Address [address] [place] [address]. [place] [address] [place] [address] Care Team Providers Care Reservations And Ticketing Agent Name Role Phone Jayson Ibarra DO Primary Care Provider + Reason for Visit * Reason Onset Date Comments Lab Results 07/03/2024 Encounter Details Date Type Department Care Team (Late st Contact Info) Description 07/03/2024 Telephone [facility] Medical Group Family & Internal Medicine [facility] [address] [place] [phone] Jayson Ibarra DO [address] [place] [address] Lab Results Social History Tobacco Use Types Packs/Day [...] as of this encounter Progress Notes * Radha Mirza - 07/03/2024 2:16 PM CST FYI Pts spouse called in stating pt is receiving transfusion currently will recheck labs around 3:15PM and if labs have normalized will release pt.. SPECIALIST * Kia Booth MA - 07/03/2024 9:[address] Ibarra reviewed labs and advised patient to go to the ER for eval and possible transfusion.The patient states he will go [facility]. [facility] and gave report to charge nurse, Enzo SADLER. E Pt update given per pt spouse around noon. HGB was 6.6 upon arrival. Rectal exam was negative. Theyare prepping patient for 1 unit of blood transfusion. SPECIALIST SPECIALIST * Kia Smalls - 07/03/2024 7:21 AM CST Patient is extremely worried about his lab results and would like a call back as soon as possible. SPECIALIST documented in this encounter Plan of Treatment Upcoming Encounters Date Type Department Care Team (Late st Contact Info) Description 07/11/2024 8:20 AM HVAC SPECIALIST Office Visit [facility] Medical Group Family & Internal Medicine [facility] [address] [place] [address] Jayson Ibarra DO [address] [place] [address] documented as of this encounter Visit Diagnoses Not on filedocumented in this encounter Care Teams Reservations And Ticketing Agent Relationship Specialty Start Date End Date Jayson Ibarra DO [facility] [place] [address] PCP - General FAMILY PRACTICE 05/17/23 documented as of this encounter
--- OUTSIDE RECORDS SUMMARY | 2024-07-10 19:58 | XMS_ITS | Encounter Summary ---
Author Organization [facility] Address [address] [place] [address]. [place], [place] [address] [place] [address] Care Team Providers Care Solid Waste Facility Operator Name Role Phone Jayson Ibarra DO Primary Care Provider + Reason for Visit * Reason Comments Image (SCAN) Encounter Details Date Type Department Care Team (Latest Contact Info) Description 07/01/2023 Scan HEALTH INFO [facility] Scanned, Doc Med Group Image (SCAN) Social History Tobacco Use Types Packs/Day Years [...] st Contact Info) Description 07/11/2024 8:20 AM ALLIANCE MANAGER Office Visit [facility] Medical Group Family & Internal Medicine [address] [phone] Jayson Ibarra DO [address] [place] [address] documented as of this encounter Procedures Procedure Name Priority Date/Time Associated Diagnosis Comments IMAGE GENERIC 07/01/2023 documented in this encounter Results * IMAGE GENERIC (07/01/2023) Anatomical Region Laterality Modality Other 07/01/2023 us Doc Med Group Scanned SCANNING Final Resu lt documented in this encounter Visit Diagnoses Not on filedocumented in this encounter Care Teams Solid Waste Facility Operator Relationship Specialty Start Date End Date Jayson Ibarra DO [address] [place] [address] PCP - General FAMILY PRACTICE 05/17/23 documented as of this encounter
--- OUTSIDE RECORDS SUMMARY | 2024-07-10 19:58 | XMS_ITS | Encounter Summary ---
Author Organization [facility] Address [facility] [address] [place] [address] Care Team Providers Care Medical Technicians Name Role Phone Jayson Ibarra DO Primary Care Provider + Encounter Details Date Type Department Care Team (Latest Contact Info) Description 09/21/2023 Travel Social History Tobacco Use Types Packs/Day [...] st Contact Info) Description 07/11/2024 8:20 AM PASTA MAKER Office Visit [facility] Family & Internal Medicine [facility] [address] [place] [address] Jayson Ibarra DO [address] [place] [address] documented as of this encounter Visit Diagnoses Not on filedocumented in this encounter Care Teams Medical Technicians Relationship Specialty Start Date End Date Jayson Ibarra DO [address] [place] [address] PCP - General FAMILY PRACTICE 05/17/23 documented as of this encounter
--- OUTSIDE RECORDS SUMMARY | 2024-07-10 19:58 | XMS_ITS | Encounter Summary ---
Author Organization [facility] Address [address] [place] [address]. [place], [place] [id number] [place] [address] Care Team Providers Care Lens Cementer Name Role Phone Jayson Ibarra DO Primary Care Provider + Reason for Visit * Reason Onset Date Comments Medication 05/05/2024 Encounter Details Date Type Department Care Team (Late st Contact Info) Description 05/05/2024 Telephone [facility] Family & Internal Medicine [facility] [address] [place] [address] Jayson Ibarra DO [address] [place], [place] [id number] Medication Social History Tobacco Use Types Packs/Day Years [...] as of this encounter Progress Notes * Robina Robert - 05/05/2024 10:44 AM CDT Pt is asking for doxycycline for sinus issues and ears feel clogged. This has been going on for over a week. Pharmacy [place] [facility]. documented in this encounter Plan of Treatment Upcoming Encounters Date Type Department Care Team (Late st Contact Info) Description 07/11/2024 8:20 AM DISTRIBUTION MANAGER Office Visit [facility] Family & Internal Medicine [facility] [address] [place] [address] Jayson Ibarra DO [address] [place] [address] documented as of this encounter Visit Diagnoses Not on filedocumented in this encounter Care Teams Lens Cementer Relationship Specialty Start Date End Date Jayson Ibarra DO [address] [place] [address] PCP - General FAMILY PRACTICE 05/17/23 documented as of this encounter
--- OUTSIDE RECORDS SUMMARY | 2024-07-10 19:58 | XMS_ITS | Encounter Summary ---
Author Organization [facility] Address [address] [place] [address]. [place], [place] [id number] [place] [address] Care Team Providers Care Rim Buster Name Role Phone Jayson Ibarra DO Primary Care Provider + Reason for Visit * Reason Comments Cough C/o cough with yello w/brown mucous, congestion, fatigue and sore throat x 5 days with a negative Covid test yesterday Encounter Details Date Type Department Care Team (Late st Contact Info) Description 08/23/2023 9:20 AM COAL GETTER Office Visit [facility] Family & Internal Medicine - [place] [address] [place] [address] Breanne Forman FNP [address] [place] [id number] Cough (C/o cough with yellow/brown mucous, congestion, fatigue and sore throat x 5 days with a negative Covid test yesterday) Social History Tobacco Use Types Packs/Day Years Used Date Smoking Tobacco: Former Cigarettes 1 10 1 973 - 1982 Passive Smoke Exposure: Never Smokeless Tobacco: [...] on file documented as of this encounter Last Filed Vital Signs Vital Sign Reading Time Taken Comments Blood Pressure 156/80 08/23/2023 9:20 AM COAL GETTER Pulse 74 08/23/2023 9:20 AM COAL GETTER Temperature 37.2 ??C (99 ??F) 08/23/2023 9:20 AM COAL GETTER Respiratory Rate 18 08/23/2023 9:20 AM COAL GETTER Oxygen Saturation 96% 08/23/2023 9:20 AM COAL GETTER Inhaled Oxygen Concentration - - Weight 81.6 kg (180 lb) 08/23/2023 9:20 AM COAL GETTER Height 172.7 cm (5' 8 ) 08/23/2023 9:20 AM COAL GETTER Body Mass Index 27.37 08/23/2023 9:20 AM COAL GETTER documented in this encounter Patient Instructions * Patient Instructions* GIOVANNY Sinha - 08/23/2023 9:20 AM COAL GETTER Take medication as prescribed and call for any continued issues or concerns, as we discussed duringyour visit. Continue your other medications as previously prescribed Maintain follow-up with your providers as scheduled Drink plenty of fluids and rest Call for any questions or concerns Follow-up routinely at least every 6 months or sooner if needed, especially if your symptoms do notimprove over the next week or if you have any new or worsening symptoms, as we discussed GETTER documented in this encounter Progress Notes * GIOVANNY Sinha - 08/23/2023 9:20 AM CSTSummary: uri sxs for 5 days Office Progress Note Reason for Visit: Cough (C/o cough with yellow/brown mucous, congestion, fatigue and sore throat x 5 days with a negative Covid test yesterday) History of Present Illness: Jose presents to the office, accompanied by his , for uri sxs for over a week. He is a patient of Dr. Ibarra, a provider in this office, but has been having a productive cough, producing yellow-brown phlegm, head and chest congestion, sore throat, and wheezing for over 5 days. He reports that his home COVID test was negative yesterday. He denies any fever, body aches, or chills. He denies any known sick contacts. He has had his vaccines this season. His reports he gets this every year, around this time, and was treated with doxycycline and prednisone. They do have some Cheratussin at home but this is an old prescription and is almost gone. They would like a refill of this medication. He reports that his cough keeps him up at night. He has been using the prescription cough medication and Mucinex and Vicks chest rub without relief. He denies any chest pain orworsening shortness of breath at this time Seasonal allergies He also uses an albuterol inhaler and has been using this more frequently. He uses his albuterol inhaler during allergy season. ROS: Review of Systems Constitutional: Positive for malaise/fatigue. Negative for chills, diaphoresis, fever and weight loss. HENT: Positive for sore throat. Negative for congestion, ear discharge, ear pain, hearing loss, nosebleeds, sinus pain and tinnitus. Eyes: Negative for blurred vision, double vision, photophobia, pain, discharge and redness. Respiratory: Positive for cough. Negative for hemoptysis, sputum production, shortness of breath, wheezing and stridor. Cardiovascular: Negative for chest pain, palpitations, orthopnea, claudication, leg swelling and PND. Gastrointestinal: Negative for abdominal pain, blood in stool, constipation, diarrhea, heartburn, melena, nausea and vomiting. Genitourinary: Negative for dysuria, flank pain, frequency, hematuria and urgency. Musculoskeletal: Negative for back pain, falls, joint pain, myalgias and neck pain. Skin: Negative for itching and rash. Neurological: Negative for dizziness, tingling, tremors, sensory change, speech change, focal weakness, seizures, loss of consciousness, weakness and headaches. Endo/Heme/Allergies: Negative for environmental allergies and polydipsia. Does not bruise/bleed easily. Psychiatric/Behavioral: Negative for depression, hallucinations, memory loss, substance abuse and suicidal ideas. The patient is not nervous/anxious and does not have insomnia. Medications: Current Outpatient Medications on File Prior to Visit Medication Sig aspirin EC (ECOTRIN) 81 MG tablet Take 1 tablet (81 mg total) by mouth daily. cholecalciferol (VITAMIN D-[address]) 25 mcg Tab tablet Take 1 tablet (1,000 Units total) by mouth daily. Dapagliflozin Propanediol (FARXIGA) 5 MG Tab Take 5 mg by mouth daily. finasteride (PROSCAR) 5 MG tablet Take 1 tablet (5 mg total) by mouth daily. fluticasone propionate (FLONASE) 50 MCG/ACT nasal spray SHAKE LIQUID AND USE 2 SPRAYS IN EACH NOSTRIL ONCE DAILY. simvastatin (ZOCOR) 20 MG tablet Take 1 tablet (20 mg total) by mouth nightly at bedtime. at bedtime tamsulosin (FLOMAX) 0.4 MG Cap Take 1 capsule (0.4 mg total) by mouth nightly at bedtime. No current facility-administered medications on file prior to visit. Allergies: Review of patient's allergies indicates: Allergen Reactions Sulfa Antibiotics Rash Medical History: Past Medical History: Diagnosis Date Enlarged prostate FSGS (focal segmental glomerulosclerosis) Infectious viral hepatitis 1999 succussful treatment Hepatitis C Surgical History: Past Surgical History: Procedure Laterality Date PACEMAKER 2019 Social History: Social History Socioeconomic History Marital status: Spouse name: Linn Number of children: 2 Occupational History Comment: [employer] Tobacco Use Smoking status: Former Packs/day: 1.00 Years: 10.00 Additional pack years: 0.00 Total pack years: 10.00 Types: Cigarettes Quit date: 1982 Years since quittin.1 Passive exposure: Never Smokeless tobacco: Never Vaping Use Vaping Use: Never used Substance and Sexual Activity Alcohol use: Not Currently Drug use: Never Family History: Family History Problem Relation Name Age of Onset Heart Disease Mother Stroke Father Heart Attack Father PE: Physical Exam Vitals and nursing note reviewed. Constitutional: General: He is not in acute distress. Appearance: Normal appearance. He is well-developed and well-groomed. He is not ill-appearing, toxic-appearing or diaphoretic. HENT: Head: Normocephalic and atraumatic. Right Ear: Hearing, tympanic membrane, ear canal and external ear normal. Left Ear: Hearing, tympanic membrane, ear canal and external ear normal. Nose: Nose normal. Eyes: General: Lids are normal. Vision grossly intact. Gaze aligned appropriately. Conjunctiva/sclera: Conjunctivae normal. Pupils: Pupils are equal, round, and reactive to light. Neck: Thyroid: No thyroid mass, thyromegaly or thyroid tenderness. Vascular: Normal carotid pulses. No carotid bruit, hepatojugular reflux or JVD. Trachea: Trachea and phonation normal. No tracheal deviation. Cardiovascular: Rate and Rhythm: Normal rate and regular rhythm. Pulses: Normal pulses. Heart sounds: Normal heart sounds. No murmur heard. No friction rub. No gallop. Pulmonary: Effort: Pulmonary effort is normal. No tachypnea, bradypnea, accessory muscle usage, prolonged expiration, respiratory distress or retractions. Breath sounds: Normal breath sounds and air entry. No stridor, decreased air movement or transmitted upper airway sounds. No decreased breath sounds, wheezing, rhonchi or rales. Abdominal: General: Abdomen is flat. Bowel sounds are normal. There is no distension or abdominal bruit. Thereare no signs of injury. Palpations: Abdomen is soft. There is no mass or pulsatile mass. Tenderness: There is no abdominal tenderness. There is no guarding or rebound. Musculoskeletal: General: No tenderness or deformity. Normal range of motion. Cervical back: Full passive range of motion without pain, normal range of motion and neck supple. No spinous process tenderness or muscular tenderness. Lymphadenopathy: Cervical: No cervical adenopathy. Skin: General: Skin is warm and dry. Capillary Refill: Capillary refill takes less than 2 seconds. Findings: No erythema or rash. Neurological: Mental Status: He is alert and oriented to person, place, and time. Cranial Nerves: No cranial nerve deficit. Sensory: Sensation is intact. No sensory deficit. Motor: Motor function is intact. Coordination: Coordination is intact. Coordination normal. Gait: Gait is intact. Gait and tandem walk normal. Deep Tendon Reflexes: Reflexes are normal and symmetric. Psychiatric: Attention and Perception: Attention and perception normal. Mood and Affect: Mood and affect normal. Speech: Speech normal. Behavior: Behavior normal. Behavior is cooperative. Thought Content: Thought content normal. Cognition and Memory: Cognition and memory normal. Judgment: Judgment normal. Filed Vitals: 08/23/23 0920 BP: (!) 156/80 Pulse: 74 Resp: 18 Temp: 99 ??F (37.2 ??C) SpO2: 96% Weight: 81.6 kg (180 lb) Height: 1.727 m (5' 8 ) Diagnoses/Impression: 1. Acute bronchitis, unspecified organism albuterol sulfate HFA 108 (90 Base) MCG/ACT inhaler doxycycline hyclate (VIBRAMYCIN) 100 MG capsule predniSONE (DELTASONE) 10 mg tablet DISCONTINUED: predniSONE (DELTASONE) 10 mg tablet DISCONTINUED: doxycycline hyclate (VIBRAMYCIN) 100 MG capsule DISCONTINUED: albuterol sulfate HFA 108 (90 Base) MCG/ACT inhaler 2. Wheezing albuterol sulfate HFA 108 (90 Base) MCG/ACT inhaler predniSONE (DELTASONE) 10 mg tablet DISCONTINUED: predniSONE (DELTASONE) 10 mg tablet DISCONTINUED: albuterol sulfate HFA 108 (90 Base) MCG/ACT inhaler 3. Persistent cough guaiFENesin-codeine (CHERATUSSIN AC) 100-10 MG/5ML syrup benzonatate (TESSALON PERLES) 100 MG capsule 4. Seasonal allergies Recommendations and Plan: 1. Acute bronchitis, unspecified organism - albuterol sulfate HFA 108 (90 Base) MCG/ACT inhaler; Inhale 2 puffs into the lungs every 4 (four)hours as needed. Dispense: 18 g; Refill: 5 - doxycycline hyclate (VIBRAMYCIN) 100 MG capsule; Take 1 capsule (100 mg total) by mouth 2 (two) times daily for 10 days. Dispense: 20 capsule; Refill: 0 - predniSONE (DELTASONE) 10 mg tablet; 4 tabs x 3d, 3 tabs x3d, 2 tabs x3d, 1 tab x3d Dispense: 30 tablet; Refill: 0 Advised to take medication as prescribed We discussed drinking plenty fluids and resting Advised him to follow-up routinely or sooner if needed, especially if his symptoms do not improve over the next week or if he has any new or worsening symptoms 2. Wheezing - albuterol sulfate HFA 108 (90 Base) MCG/ACT inhaler; Inhale 2 puffs into the lungs every 4 (four)hours as needed. Dispense: 18 g; Refill: 5 - predniSONE (DELTASONE) 10 mg tablet; 4 tabs x 3d, 3 tabs x3d, 2 tabs x3d, 1 tab x3d Dispense: 30 tablet; Refill: 0 Advised to take medication as prescribed We discussed drinking plenty fluids and resting Advised him to follow-up routinely or sooner if needed, especially if his symptoms do not improve over the next week or if he has any new or worsening symptoms 3. Persistent cough - guaiFENesin-codeine (CHERATUSSIN AC) 100-10 MG/5ML syrup; Take 5 mLs by mouth every 4 (four) hours as needed for Cough. Indications: Cough Dispense: 118 mL; Refill: 0 - benzonatate (TESSALON PERLES) 100 MG capsule; Take 1 capsule (100 mg total) by mouth 3 (three) times daily as needed for Cough. Dispense: 30 capsule; Refill: 0 We discussed taking the medication as needed for his cough and calling for any continued issues or concerns 4. Seasonal allergies Advised to continue [id number] medication as needed We discussed continuing his albuterol inhaler as needed and as prescribed We discussed routine follow-up, sooner if needed Orders Placed This Encounter DISCONTD: predniSONE (DELTASONE) 10 mg tablet DISCONTD: doxycycline hyclate (VIBRAMYCIN) 100 MG capsule DISCONTD: albuterol sulfate HFA 108 (90 Base) MCG/ACT inhaler albuterol sulfate HFA 108 (90 Base) MCG/ACT inhaler doxycycline hyclate (VIBRAMYCIN) 100 MG capsule predniSONE (DELTASONE) 10 mg tablet guaiFENesin-codeine (CHERATUSSIN AC) 100-10 MG/5ML syrup benzonatate (TESSALON PERLES) 100 MG capsule Cannot display discharge medications since this is not an admission. I personally spent a total of 30 minutes on the day of the encounter. This includes [id number] and tnf-wjhc-wz-face time I provided on the day of the encounter & excludes time spent performing separately reportable services. PCP: GIOVANNY VANG 08/23/2023 Cosigned by Fernando Frank MD at 08/23/2023 9:37 PM COAL GETTER GETTER GETTER documented in this encounter Plan of Treatment Upcoming Encounters Date Type Department Care Team (Late st Contact Info) Description 07/11/2024 8:20 AM COAL GETTER Office Visit [facility] Family & Internal Medicine - [address] [address] Jayson Ibarra, [address] [place] [address] documented as of this encounter Visit Diagnoses Diagnosis Acute bronchitis, unspecified organism- Primary Wheezing Persistent cough Cough Seasonal allergies Allergic rhinitis, cause unspecified documented in this encounter Care Teams Rim Buster Relationship Specialty Start Date End Date Jayson Ibarra DO [facility] [place] [address] PCP - General FAMILY PRACTICE 05/17/23 documented as of this encounter
--- OUTSIDE RECORDS SUMMARY | 2024-07-10 19:58 | XMS_ITS | Encounter Summary ---
Author Organization [facility] Address [address] [place] [address]. [place], [place] [address] [place] [address] Care Team Providers Care Photographic Supervisor Name Role Phone Jayson Ibarra DO Primary Care Provider + Reason for Referral * Consultation (Routine) - Closed Specialty Diagnoses / Procedures Referred By Contac t Referred To Contact NEPHROLOGY Diagnoses Stage 3a chronic kidney disease (CKD) ([facility]) Type 2 diabetes mellitus with microalbuminuria ([facility]) Procedures OFFICE/OUTPATIENT NEW LOW MDM 30-44 MINUTES OFFICE/OUTPT VISIT,NEW,LEVL IV OFFICE/OUTPT VISIT,NEW,LEVL V OFFICE/OUTPT VISIT,EST,LEVL III OFFICE/OUTPT VISIT,EST,LEVL IV OFFICE/OUTPT VISIT,EST,LEVL V Jayson Ibarra DO [address] [place] [phone] Phone: tel: fax: John Adam MD [address] [facility] [address] [place] [address] Phone: tel: fax: Referral ID Status Reason Start Date Expiration Date V isits Requested Visits Authorized [id number] Closed Specialty Services 05/28/2023 06/27/2024 100 100 WORKER Reason for Visit * Reason Onset Date Comments Lab Results 05/28/2023 Encounter Details Date Type Department Care Team ([facility] st Contact Info) Description 05/28/2023 Telephone [facility] Family & Internal Medicine - [place] [address] [place] [address] Jayson Ibarra DO [address] [place] [address] Lab Results Social History Tobacco Use Types [...] as of this encounter Progress Notes * Cristofer Peace MA - 05/28/2023 8:33 AM CSTAddended by: CRISTOFER PEACE on: 05/28/2023 08:33 AM Modules accepted: Orders WORKER * Cristofer Peace MA - 05/28/2023 8:17 AM CST Images from the original note were not included. Jayson Ibarra DO P Mg Irving Ibarra Nurse Pt has notable protein spilling into his urine; will need to add a medication and refer to nephrology. Recommend starting Jardiance 10 mg daily as his A1c is still elevated as well (use diagnosis of type 2 diabetes with microalbuminuria and CKD 3a for diagnoses for these). This medicine can lead toincreased UTI's, so if this begins happening we we will need to change the medication. Labs are otherwise stable. F/u as scheduled. Pt stated they are currently out of state and set to return on/around June 09. (Pt specifically asked for a commercial pilot associated with [facility].) WORKER WORKER documented in this encounter Plan of Treatment Upcoming Encounters Date Type Department Care Team (Late st Contact Info) Description 07/11/2024 8:20 AM END WORKER Office Visit [facility] Family & Internal Medicine - [place] [address] [place] [address] Jayson Ibarra DO [facility] [place] [address] Scheduled Referrals Name Type Priority Associated Diagnoses Orde r Schedule Ambulatory referral to Nephrology (OTHER) Referral Routine Stage 3a chronic kidney disease (CKD) ([facility] HHS/HCC) Type 2 diabetes mellitus with microalbuminuria ([facility]/H[facility]) Ordered: 05/28/2023 documented as of this encounter Visit Diagnoses Diagnosis Stage 3a chronic kidney disease (CKD) (CMS/HCC HHS/HCC)- Primary Type 2 diabetes mellitus with microalbuminuria ([facility]HS/HCC) documented in this encounter Care Teams Photographic Supervisor Relationship Specialty Start Date End Date Jayson Ibarra DO [address] [place] [phone] PCP - General FAMILY PRACTICE 05/17/23 documented as of this encounter
--- OUTSIDE RECORDS SUMMARY | 2024-07-10 19:58 | XMS_ITS | Encounter Summary ---
Author Organization [facility] Address [address] [place] [address]. [place], [place] [id number] [place] [id number] Care Team Providers Care Ethnic Origins Teacher Name Role Phone Jayson Ibarra DO Primary Care Provider + Reason for Visit * Reason Comments Follow Up 3 month F/U, no comp laints at this time Encounter Details Date Type Department Care Team (Late st Contact Info) Description 09/21/2023 1:20 PM CDT Office Visit [facility] Family & Internal Medicine [id number] [place] [phone] Jayson Ibarra DO [address] [place] [id number] Follow Up (3 month F/U, no complaints at this time) Social History Tobacco Use Types Packs/Day Years Used Date Smoking Tobacco: Former Cigarettes 1 04 04 973 1982 Passive Smoke Exposure: Never Smokeless Tobacco: [...] Sign Reading Time Taken Comments Blood Pressure 103/68 09/21/2023 1:11 PM CDT Pulse 82 09/21/2023 1:11 PM CDT Temperature 36.7 ??C (98.1 ??F) 09/21/2023 1:11 PM CD T Respiratory Rate 16 09/21/2023 1:11 PM CDT Oxygen Saturation 97% 09/21/2023 1:11 PM CDT Inhaled Oxygen Concentration - - Weight 79.2 kg (174 lb 9 oz) 09/21/2023 1:11 PM CDT Height 172.7 cm (5' 8 ) 09/21/2023 1:11 PM CDT Body Mass Index 26.54 09/21/2023 1:11 PM CDT documented in this encounter Progress Notes * Jayson Ibarra, DO - 09/21/2023 1:20 PM CDT Images from the original note were not included. GENERAL OFFICE VISIT Encounter Date: 09/21/2023 Chief Complaint: 68-year-old male presents for Follow Up (3 month F/U, no complaints at this time) HPI: Patient has Type 2 Diabetes. Patient has had diabetes for 1 year. Medications include Farxiga. BS logs range: acceptable. Patient's weight has gone down 8 lbs. Current symptoms include CKD 3a; pt hashx of focal segmental glomerulosclerosis and follows with nephrology for this. HGB A1C Date Value Ref Range Status 09/21/2023 6.8 % Final 05/17/2023 7.3 (H) 4.5 - 6.2 % Final MICROALBUMIN (U) Date Value Ref Range Status 05/17/2023 >850.0 (H) <20 MG/L Final Patient presents for follow-up on HLD. Patient has had HLD for multiple years. Current medications include simvastatin. This was last checked by cardiology in 2022. Current side effects include none.Patient does not need labs drawn today. Patient presents for follow-up on essential hypertension. Patient has had hypertension for multipleyears. Current medications include Lisinopril. He was told to take it only as needed. Patient's blood pressure is well controlled at this time. Patient occasionally take his/her blood pressure at home. Ranges are WNL. No side effects noted from medications. Concurrent conditions include Diabetes Mellitus and Hyperlipidemia. Review of Systems Constitutional: Negative for fever. Respiratory: Negative for shortness of breath. Cardiovascular: Negative for chest pain. Gastrointestinal: Negative for abdominal pain. Skin: Negative for rash. Psychiatric/Behavioral: Negative for depression. Patient Active Problem List Diagnosis Cardiac pacemaker in situ Left bundle branch block (LBBB) Second degree AV block, Mobitz type II Type 2 diabetes mellitus without complication, without long-term current use of insulin ([facility]/HCC) ([facility]) Hypertension associated with type 2 diabetes mellitus ([facility]/HCC) ([facility]) Seasonal allergies Benign prostatic hyperplasia with lower urinary tract symptoms, symptom details unspecified Stage 3a chronic kidney disease (CKD) ([facility]) Hyperlipidemia associated with type 2 diabetes mellitus ([facility]/HCC) ([facility]) History of permanent cardiac pacemaker placement Past Medical History: Diagnosis Date Enlarged prostate FSGS (focal segmental glomerulosclerosis) Infectious viral hepatitis 1999 succussful treatment Hepatitis C Past Surgical History: Procedure Laterality Date PACEMAKER 2019 Family History Problem Relation Name Age of Onset Heart Disease Mother Stroke Father Heart Attack Father Social History Socioeconomic History Marital status: Spouse name: Linn Number of children: 2 Years of education: Not on file Highest education level: Not on file 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 Tobacco Use Smoking status: Former Packs/day: 1.00 Years: 10.00 Additional pack years: 0.00 Total pack years: 10.00 Types: Cigarettes Quit date: 1982 Years since quittin.2 Passive exposure: Never Smokeless tobacco: Never Vaping Use Vaping Use: Never used Substance and Sexual Activity Alcohol use: Not Currently Drug use: Never Sexual activity: Not on file Other Topics Concern Not on file Social History Narrative Not on file Social Determinants of Health Financial Resource Strain: Not on file Food Insecurity: Not on file Transportation Needs: Not on file Physical Activity: Not on file Stress: Not on file Social Connections: Not on file Intimate Partner Violence: Not on file Housing Stability: Not on file Immunization History Administered Date(s) Administered Fluzone High Dose - >Age 65 (Prefilled Syringe) 02/16/2020, 04/30/2021, 04/06/2022, 05/10/2023 Influenza 06/05/2012 Influenza Adult (Generic) 07/03/2013, 04/25/2015, 04/15/2017, 04/20/2018 [employer] COVID-19 (WHITE CAP), MRNA, LNP-S, PF, 30 MCG/0.3 ML GURPREET-SUCROSE, IM 10/22/2021 [employer] COVID-19 (ORIGINAL FORMULATION, PURPLE CAP) mRNA, LNP-S, PF, 30 MCG/0.3 ML DOSE 08/01/2020, 08/25/2020, 03/29/2021 [employer] COVID-19 BIVALENT (12+) mRNA, LNP-S, PF, 30 MCG/0.3 ML DOSE 03/26/2022 Pneumococcal (Pneumovax 23) 05/18/2021 Pneumococcal (Prevnar 13) 05/14/2020 Tdap (Generic) 05/07/2012 Current Outpatient Medications Medication Sig Dispense Refill albuterol sulfate HFA 108 (90 Base) MCG/ACT inhaler Inhale 2 puffs into the lungs every 4 (four) hours as needed. 18 g 5 aspirin EC (ECOTRIN) 81 MG tablet Take 1 tablet (81 mg total) by mouth daily. benzonatate (TESSALON PERLES) 100 MG capsule Take 1 capsule (100 mg total) by mouth 3 (three) timesdaily as needed for Cough. 30 capsule 0 cholecalciferol (VITAMIN D-[address]) 25 mcg Tab tablet Take 1 tablet (1,000 Units total) by mouth daily. Dapagliflozin Propanediol (FARXIGA) 5 MG Tab Take 5 mg by mouth daily. 90 tablet 0 finasteride (PROSCAR) 5 MG tablet Take 1 tablet (5 mg total) by mouth daily. fluticasone propionate (FLONASE) 50 MCG/ACT nasal spray SHAKE LIQUID AND USE 2 SPRAYS IN EACH NOSTRIL ONCE DAILY. guaiFENesin-codeine (CHERATUSSIN AC) 100-10 MG/5ML syrup Take 5 mLs by mouth every 4 (four) hours as needed for Cough. Indications: Cough 118 mL 0 simvastatin (ZOCOR) 20 MG tablet Take 1 tablet (20 mg total) by mouth nightly at bedtime. at bedtime tamsulosin (FLOMAX) 0.4 MG Cap Take 1 capsule (0.4 mg total) by mouth nightly at bedtime. No current facility-administered medications for this visit. Current Outpatient Medications on File Prior to Visit Medication Sig albuterol sulfate HFA 108 (90 Base) MCG/ACT inhaler Inhale 2 puffs into the lungs every 4 (four) hours as needed. aspirin EC (ECOTRIN) 81 MG tablet Take 1 tablet (81 mg total) by mouth daily. benzonatate (TESSALON PERLES) 100 MG capsule Take 1 capsule (100 mg total) by mouth 3 (three) timesdaily as needed for Cough. cholecalciferol (VITAMIN D-[address]) 25 mcg Tab tablet Take 1 tablet (1,000 Units total) by mouth daily. Dapagliflozin Propanediol (FARXIGA) 5 MG Tab Take 5 mg by mouth daily. finasteride (PROSCAR) 5 MG tablet Take 1 tablet (5 mg total) by mouth daily. fluticasone propionate (FLONASE) 50 MCG/ACT nasal spray SHAKE LIQUID AND USE 2 SPRAYS IN EACH NOSTRIL ONCE DAILY. guaiFENesin-codeine (CHERATUSSIN AC) 100-10 MG/5ML syrup Take 5 mLs by mouth every 4 (four) hours as needed for Cough. Indications: Cough simvastatin (ZOCOR) 20 MG tablet Take 1 tablet (20 mg total) by mouth nightly at bedtime. at bedtime tamsulosin (FLOMAX) 0.4 MG Cap Take 1 capsule (0.4 mg total) by mouth nightly at bedtime. No current facility-administered medications on file prior to visit. Review of patient's allergies indicates: Allergen Reactions Sulfa Antibiotics Rash Objective: Filed Vitals: 09/21/23 1311 BP: 103/68 Pulse: 82 Resp: 16 Temp: 98.1 ??F (36.7 ??C) SpO2: 97% Weight: 79.2 kg (174 lb 9 oz) Height: 1.727 m (5' 8 ) Physical Exam Vitals and nursing note reviewed. HENT: Head: Normocephalic and atraumatic. Right Ear: External ear normal. Left Ear: External ear normal. Eyes: General: No scleral icterus. Conjunctiva/sclera: Conjunctivae normal. Cardiovascular: Rate and Rhythm: Normal rate and regular rhythm. Heart sounds: Normal heart sounds. No murmur heard. No friction rub. No gallop. Pulmonary: Effort: Pulmonary effort is normal. No respiratory distress. Breath sounds: Normal breath sounds. No wheezing or rales. Musculoskeletal: Cervical back: Neck supple. Skin: General: Skin is warm and dry. Findings: No rash. Neurological: Mental Status: He is alert. Mental status is at baseline. Psychiatric: Mood and Affect: Mood and affect normal. Assessment & Plan: Jose was seen today for follow up. Diagnoses and all orders for this visit: Type 2 diabetes mellitus with stage 3a chronic kidney disease, without long-term current use of insulin ([facility]/HCC) ([facility]) - A1C (BACK OFFICE) - COLLECT.CAPILLARY (FNGR,HEEL,EAR) Hypertension associated with type 2 diabetes mellitus ([facility]) ([facility]) Hyperlipidemia associated with type 2 diabetes mellitus ([facility]/HCC) ([facility]) Stage 3a chronic kidney disease (CKD) ([facility]) BMI 26.0-26.9,adult Discussion/Summary: Continue all medications as prescribed and lifestyle changes for above conditions; stable. Continuef/u with all specialists. Will have pt f/u in 3 months or sooner if needed. Pt v/u. Jayson Ibarra DO documented in this encounter Plan of Treatment Upcoming Encounters Date Type Department Care Team (Late st Contact Info) Description 07/11/2024 8:20 AM SAMPLER TESTER Office Visit [facility] Family & Internal Medicine [address] [phone] Jayson Ibarra DO [address] [place] [id number] documented as of this encounter Procedures Procedure Name Priority Date/Time Associated Diagnosis Comments COLLECT.CAPILLARY (FNGR,HEEL,EAR) Routine 09/21/2023 1:14 PM CDT Type 2 diabetes mellitus with stage 3a chronic kidney disease, without long-term current use of insulin ([facility]) HEMOGLOBIN, GLYCOSYLATED Routine 09/21/2023 Type 2 diabetes mellitus with stage 3a chronic kidney disease, without long-term current use of insulin ([facility]) documented in this encounter Results * A1C (BACK OFFICE) (09/21/2023) HGB A1C 6.8 % [facility] 09/21/2023 us Jayson Ibarra DO LABORATORY Final Re sult [facility] [address] [place] [address], documented in this encounter Visit Diagnoses Diagnosis Type 2 diabetes mellitus with stage 3a chronic kidney disease, without long-term current use of insulin ([facility])- Primary Hypertension associated with type 2 diabetes mellitus ([facility]) Hyperlipidemia associated with type 2 diabetes mellitus ([facility]) Stage 3a chronic kidney disease (CKD) ([facility]) BMI 26.0-26.9,adult Body Mass Index 26.0-26.9, adult documented in this encounter Care Teams Ethnic Origins Teacher Relationship Specialty Start Date End Date Jayson Ibarra DO [facility] [place] [address] PCP - General FAMILY PRACTICE 05/17/23 documented as of this encounter
--- OUTSIDE RECORDS SUMMARY | 2024-07-10 19:58 | XMS_ITS | Encounter Summary ---
Author Organization [facility] Address [address] [place] [address]. [place], [place] [address] [place] [id number] Care Team Providers Care Cafeteria Helper Name Role Phone Jayson Ibarra DO Primary Care Provider + Reason for Visit * Reason Comments Medication Management The patient to est . Care. Encounter Details Date Type Department Care Team (Late st Contact Info) Description 05/17/2023 1:00 PM TONG SETTER Office Visit [facility] Family & Internal Medicine [address] [phone] Jayson Ibarra DO [address] [place] [address] [phone] Medication Management (The patient to est. Care. ) Social History Tobacco Use Types Packs/Day Years Used Date Smoking Tobacco: Former Cigarettes 1 1982 Passive Smoke Exposure: Never Smokeless Tobacco: Never Tobacco Cessation:Counseling Given: Not Answered Alcohol Use Standard Drinks/Week Comments Not Currently [...] Sign Reading Time Taken Comments Blood Pressure 120/62 05/17/2023 1:24 PM TONG SETTER Pulse 81 05/17/2023 1:24 PM TONG SETTER Temperature 37.1 ??C (98.7 ??F) 05/17/2023 1:24 PM CS T Respiratory Rate 16 05/17/2023 1:24 PM TONG SETTER Oxygen Saturation 98% 05/17/2023 1:24 PM TONG SETTER Inhaled Oxygen Concentration - - Weight 82.6 kg (182 lb 1.6 oz) 05/17/2023 1:24 P M TONG SETTER Height 172.7 cm (5' 8 ) 05/17/2023 1:24 PM TONG SETTER Body Mass Index 27.69 05/17/2023 1:24 PM TONG SETTER documented in this encounter Progress Notes * Charleen Magana MA - 05/17/2023 1:00 PM CSTAddended by: CHARLEEN MAGANA on: 05/17/2023 02:22 PM Modules accepted: Orders SETTER * Jayson Ibarra DO - 05/17/2023 1:00 PM CST Images from the original note were not included. GENERAL OFFICE VISIT Encounter Date: 05/17/2023 Chief Complaint: 68-year-old male presents for Medication Management (The patient to [facility]. ) HPI: Pt uses albuterol during certain months of the year for allergy related symptoms. No formal diagnosis of asthma or COPD. Pt has pacemaker; he had a second degree AV Block that led to syncope. He sees Dr. Ashby for this. There is also noted LBBB. He has been stable on most recent check. He follows annually. Pt has BPH. Pt sees Dr. Jenkins for this. Pt is on finasteride and tamsulosin. Pt has hx of focal segmental glomerulosclerosis. Pt has CKD related to this and has both a creatinine and urine test run yearly for this. Patient presents for follow-up on HLD. Patient has had HLD for multiple years. Current medications include simvastatin. Current side effects include none. Patient does not need labs drawn today. Patient [...] Concurrent conditions include Diabetes Mellitus and Hyperlipidemia. Pt has recent A1c that was 7.3 from about 6 months ago. Pt is not on medication and was not aware of diagnosis. Review of Systems Constitutional: Negative for fever. Respiratory: Negative for shortness of breath. Cardiovascular: Negative for chest pain. Psychiatric/Behavioral: Negative for depression. Patient Active Problem List Diagnosis Cardiac pacemaker in situ Left bundle branch block (LBBB) Second degree AV block, Mobitz type II Type 2 diabetes mellitus without complication, without long-term current use of insulin ([facility]/HCC) ([facility]) Hypertension associated with type 2 diabetes mellitus ([facility]/HCC) ([facility]) Seasonal allergies Benign prostatic hyperplasia with lower urinary tract symptoms, symptom details unspecified Stage 3a chronic kidney disease (CKD) ([facility]) Hyperlipidemia associated with type 2 diabetes mellitus (HHS/HCC) ([facility]) Past Medical History: Diagnosis Date Enlarged prostate [...] level: Not on file 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 finasteride (PROSCAR) 5 MG tablet Take 1 tablet (5 mg total) by mouth daily. fluticasone propionate (FLONASE) 50 MCG/ACT nasal spray SHAKE LIQUID AND USE 2 SPRAYS IN EACH NOSTRIL ONCE DAILY. lisinopril (PRINIVIL) 10 MG tablet Take 1/2 tab PRN 90 tablet 1 simvastatin (ZOCOR) 20 MG tablet Take 1 [...] tablet (1,000 Units total) by mouth daily. finasteride (PROSCAR) 5 MG [...] Reactions Sulfa Antibiotics Rash Objective: Filed Vitals: 05/17/23 1324 BP: 120/62 Pulse: 81 Resp: 16 Temp: 98.7 ??F (37.1 ??C) TempSrc: Skin SpO2: 98% Weight: 82.6 kg (182 lb 1.6 oz) Height: 1.727 m (5' 8 ) [...] Normal breath sounds. No wheezing or rales. Abdominal: General: Bowel sounds are normal. Palpations: Abdomen is soft. Tenderness: There is no abdominal tenderness. Musculoskeletal: Cervical back: Neck supple. Skin: General: Skin is warm and dry. Findings: No rash. Neurological: Mental Status: He is alert and oriented to person, place, and time. Psychiatric: Mood and Affect: Mood and affect normal. Assessment & Plan: Jose was seen today for medication management. Diagnoses and all orders for this visit: Encounter to establish care with new doctor Type 2 diabetes mellitus without complication, without long-term current use of insulin ([facility]/HCC) ([facility]/HCC) - CBC W/DIFF AUTOMATED; Future - TSH W/REFLEX; Future - URINALYSIS WI REFLEX TO CULTURE; Future - COMPREHENSIVE METABOLIC PANEL; Future - HEMOGLOBIN, GLYCOSYLATED; Future - ALBUMIN URINE RANDOM; Future Hypertension associated with type 2 diabetes mellitus (HHS/HCC) ([facility]) - lisinopril (PRINIVIL) 10 MG tablet; Take 1/2 tab PRN Screening for malignant neoplasm of colon - COLOGUARD ([employer]) Seasonal allergies Benign prostatic hyperplasia with lower urinary tract symptoms, symptom details unspecified Stage 3a chronic kidney disease (CKD) ([facility]) Hyperlipidemia associated with type 2 diabetes mellitus ([facility]/HCC) ([facility]) Discussion/Summary: Continue all medications as prescribed; will check labs as per above. Consider adding diabetic agent if A1c is still elevated. Will request previous records for AAA. Will order Cologuard today. Will have pt f/u in 3 months or sooner if needed. Pt v/u. Jayson Ibarra DO SETTER documented in this encounter Plan of Treatment Upcoming Encounters Date Type Department Care Team (Late st Contact Info) Description 07/11/2024 8:20 AM TONG SETTER Office Visit [facility] Family & Internal Medicine [address] [phone] Jayson Ibarra DO [address] [place] [address] [phone] documented as of this encounter Procedures Procedure Name Priority Date/Time Associated Diagnosis Comments COLOGUARD ([employer]ENCE) Routine 05/24/2023 7:40 AM TONG SETTER Screening for malignant neoplasm of colon ALBUMIN URINE RANDOM W/CREATININE Routine 05/17/2023 2:25 PM TONG SETTER Type 2 diabetes mellitus without complication, without long-term current use of insulin ([facility]) URINALYSIS WI REFLEX TO CULTURE Routine 05/17/2023 2:24 PM TONG SETTER Type 2 diabetes mellitus without complication, without long-term current use of insulin ([facility]/HCC) TSH W/REFLEX Routine 05/17/2023 2:24 PM TONG SETTER Type 2 diabetes mellitus without complication, without long-term current use of insulin (CMS/HCC HHS/HCC) HEMOGLOBIN, GLYCOSYLATED Routine 05/17/2023 2:24 PM TONG SETTER Type 2 diabetes mellitus without complication, without long-term current use of insulin (CMS/HCC HHS/HCC) COMPREHENSIVE METABOLIC PANEL Routine 05/17/2023 2:24 PM TONG SETTER Type 2 diabetes mellitus without complication, without long-term current use of insulin (CMS/HCC HHS/HCC) CBC W/DIFF AUTOMATED Routine 05/17/2023 2:24 PM TONG SETTER Type 2 diabetes mellitus without complication, without long-term current use of insulin (CMS/HCC HHS/HCC) COLLECTION VENOUS BLOOD VENIPUNCTURE Routine 05/17/2023 2:22 PM TONG SETTER Type 2 diabetes mellitus without complication, without long-term current use of insulin (CMS/HCC HHS/HCC) documented in this encounter Results * COLOGUARD ([facility] SCIENCE) (05/24/2023 7:40 AM TONG SETTER) COLOGUARD RESULT Negative Negative [employer] (CLIA #:[id number]) Comment: NEGATIVE TEST RESULT. A negative Cologuard result indicates a low likelihood that a colorectal cancer (CRC) or advanced adenoma (adenomatous polyps with more advanced pre-malignant features) ??is present. The chance that a person with a negative Cologuard test has a colorectal cancer is less than 1 in 1500 (negative predictive value >99.9%) or has an ??advanced adenoma is less than ??5.3% (negative predictive value 94.7%). These data are based on a prospective cross-sectional study of 10,000 individuals at average risk for colorectal cancer who were screened with both Cologuard and colonoscopy. (Arin Mcneill al, N Engl J Med 2014;370(14):1286- 1297) The normal value (reference range) for this assay is negative. COLOGUARD RE-SCREENING RECOMMENDATION: Periodic colorectal cancer screening is an important part of preventive healthcare for asymptomatic individuals at average risk for colorectal cancer. ??Following a negative Cologuard result, the [place] [employer] Society and U.S. Multi-Society Task Force screening guidelines recommend a Cologuard re-screening interval of 3 years. References: [place] [employer] Guideline for Colorectal Cancer Screening: https://www.cancer.org/cancer/wukgh-gycvbd-xrszdt/catdycelz-yjcyqqowd-dwouhdz/ac s-rec ommendations.html.; Solo DK, Arnoldo BARNETT, Nitesh LawsonK, Colorectal Cancer Screening: Recommendations for Physicians and Patients from the U.S. Multi-Society Task Force on Colorectal Cancer Screening , Am J Gastroenterology 2017; 112:3943-1097. TEST DESCRIPTION: Composite algorithmic analysis of stool DNA-biomarkers with hemoglobin immunoassay. ?? Quantitative values of individual biomarkers are not reportable and are not associated with individual biomarker result reference ranges. Cologuard is intended for colorectal cancer screening of adults of either sex, 45 years or older, who are at average-risk for colorectal cancer (CRC). Cologuard has been approved for use by the U.S. FDA. The performance of Cologuard was established in a cross sectional study of average-risk adults aged 50-84. Cologuard performance in patients ages 45 to 49 years was estimated by sub-group analysis of near-age groups. Colonoscopies performed for a positive result may find as the most clinically significant lesion: colorectal cancer [4.0%], advanced adenoma (including sessile serrated polyps greater than or equal to 1cm diameter) [20%] or non- advanced adenoma [31%]; or no colorectal neoplasia [45%]. These estimates are derived from a prospective cross-sectional screening study of 10,000 individuals at average risk for colorectal cancer who were screened with both Cologuard and colonoscopy. (Arin Mcneill al, N Engl J Med 2014;370(14):0515-2793.) Cologuard may produce a false negative or false positive result (no colorectal cancer or precancerous polyp present at colonoscopy follow up). A negative Cologuard test result does not guarantee the absence of CRC or advanced adenoma (pre-cancer). The current Cologuard screening interval is every 3 years. ([place] [employer] Society and U.S. Multi-Society Task Force). Cologuard performance data in a 10,000 patient pivotal study using colonoscopy as the reference method can be accessed at the following location: www.LumiThera.com/results. Additional description of the Cologuard test process, warnings and precautions can be found at www.cologSplinter.merd.com. STOOL STOOL SPECIMEN / Unknown 05/24/2023 7:40 AM TONG SETTER 05/26/2023 12:58 AM TONG SETTER Jayson Ibarra DO BODY FLUIDS AND STOOLS O RDERABLES Final Result Performing Organization Address [facility] Co de Phone Number [place] ([facility] [address] [facility]) [address] [place] [address], [facility] (CLIA #:[id number]) [address] [place] [address] * (ABNORMAL) ALBUMIN URINE RANDOM (05/17/2023 2:25 PM TONG SETTER) MICROALBUMIN (U) >850.0(H) <20 MG/L 05/18/20 10:20 AM TONG SETTER [facility] CREATININE RANDOM (U) 107.0 MG/DL 05/18/2023 10:19 AM TONG SETTER [facility] ALBUMIN/CREAT RATIO UNABLE TO CALCULATE <30 MG/G 05/18/2023 10:20 AM TONG SETTER [facility] URINE SPECIMEN / Unknown 05/17/2023 2:25 PM TONG SETTER Jayson Ibarra DO URINE ORDERABLES Final R esult Performing Organization Address [facility] de Phone Number [facility] [address] [place] [address], * (ABNORMAL) HEMOGLOBIN, GLYCOSYLATED (05/17/2023 2:24 PM TONG SETTER) HGB A1C 7.3(H) 4.5 - 6.2 % 05/17/2023 8:23 PM TONG SETTER [facility] ESTIMATED AVG GLUCOSE 163(H) 74 - 106 MG/DL 05/17/2023 8:23 PM TONG SETTER [facility] 05/17/2023 2:24 PM TONG SETTER Jayson Ibarra DO LABORATORY Final Re sult [facility] [place] [address] [place] [address], * (ABNORMAL) COMPREHENSIVE METABOLIC PANEL (05/17/2023 2:24 PM TONG SETTER) SODIUM S/P/B 140 136 - 145 MMOL/L 05/17/2023 8:46 PM TONG SETTER [facility] POTASSIUM S/P/B 4.3 3.5 - 5.1 MMOL/L 05/17/2023 8:46 PM TONG SETTER [facility] CHLORIDE S/P/B 103 98 - 107 MMOL/L 05/17/2023 8:46 PM TONG SETTER [facility] CO2 26.8 21 - 32 MMOL/L 05/17/2023 8:46 PM TONG SETTER [facility] GLUCOSE 150(H) 70 - 99 MG/DL 05/17/2023 8:46 PM [facility] BUN 30(H) 7 - 18 MG/DL 05/17/2023 8:46 PM [facility] CREATININE S/P/B 1.61(H) 0.70 - 1.30 MG/DL 05/17/2023 8:46 PM TONG SETTER [facility] CALCIUM S/P/B 10.2 8.4 - 10.5 MG/DL 05/17/2023 8:46 PM [facility] BILIRUBIN TOTAL S/P/B 0.4 0.2 - 1.0 MG/DL 05/17/2023 8:46 PM [facility] ALKALINE PHOSPHATASE S/P/B 68 45 - 115 U/L 05/17/2023 8:46 PM TONG SETTER [facility] [place] AST 16 15 - 37 U/L 05/17/2023 8:46 PM TONG SETTER [facility] [place] ALT 32 16 - 63 U/L 05/17/2023 8:46 PM TONG SETTER [facility] [place] TOTAL PROTEIN S/P/B 6.7 6.4 - 8.2 G/DL 05/17/2023 8:46 PM TONG SETTER [facility] [place] ALBUMIN S/P/B 3.4 3.4 - 5.0 G/DL 05/17/2023 8:46 PM TONG SETTER [facility] [place] ANION GAP 10.2 5 - 15 MMOL/L 05/17/2023 8:46 PM TONG SETTER [facility] [place] Comment:REFERENCE RANGE NOT ESTABLISHED OSMOLALITY (CALC) 299 MOSM/KG 023 8:46 PM TONG SETTER [facility] [place] Comment:REFERENCE RANGE NOT ESTABLISHED GFR ESTIMATE 46(L) >90 ML/MIN/1. 73 M2 05/17/2023 8:46 PM TONG SETTER [facility] CATHY, [place] GFR NOTES GFR REFERENCE S: 05/17/2023 8:46 PM TONG SETTER [facility] [place] Comment: THE ESTIMATED GFR IS CALCULATED USING THE 2020 CKD-EPI EQUATION. THE FOLLOWING CATEGORIES FOR GRADING RENAL FUNCTION ARE RECOMMENDED BY THE INTERNATIONAL SOCIETY OF NEPHROLOGY (KDIGO 2012 CLINICAL PRACTICE GUIDELINE). G1,NORMAL OR HIGH: >89 ml/min/1.73 m2 G2,MILDLY DECREASED: 60-89 ml/min/1.73 m2 G3A,MILDLY TO MODERATELY DECREASED: 45-59 ml/min/1.73 m2 G3B,MODERATELY TO SEVERELY DECREASED: 30-44 ml/min/1.73 m2 G4,SEVERELY DECREASED: 15-29 ml/min/1.73 m2 G5,KIDNEY FAILURE: <15 ml/min/1.73 m2 05/17/2023 2:24 PM TONG SETTER us Jayson Ibarra DO LABORATORY Final Re sult [facility] [address] [place] [address], [place] [phone] * (ABNORMAL) URINALYSIS WI REFLEX TO CULTURE (05/17/2023 2:24 PM TONG SETTER) COLOR (U) YELLOW 05/17/2023 8:02 PM [facility] TRANSPARENCY CLEAR CLEAR 05/17/2023 8:02 PM TONG SETTER [facility] SPECIFIC GRAVITY (U) 1.020 1.003 - 1.040 05/17/2023 8:02 PM TONG SETTER [facility] U PH 7.0 5.0 - 9.0 05/17/2023 8:02 PM [facility] PROTEIN RANDOM (U) 3+(A) NEGATIVE 05/17/2023 8:02 PM [facility] GLUCOSE (U) NEGATIVE NEGATIVE 05/17/2023 8:02 PM [facility] KETONES MG/DL (U) NEGATIVE NEGATIVE 05/17/2023 8:02 PM [facility] BILIRUBIN (U) NEGATIVE NEGATIVE 05/17/2023 8:02 PM [facility] BLOOD (U) NEGATIVE NEGATIVE 05/17/2023 8:02 PM [facility] UROBILINOGEN 1.0 0.0 - 2.0 EU/DL 05/17/2023 8:02 PM [facility] NITRITES NEGATIVE NEGATIVE 05/17/2023 8:02 PM [facility] LEUKOCYTES (U) NEGATIVE NEGATIVE 05/17/2023 8:02 PM [facility] REFLEX URINE CULTURE: CULTURE IS NOT INDICATED 05/17/2023 8:02 PM [facility] RBC/HPF 0-3 0 - 3 /HPF 05/17/2023 8:02 PM [facility] WBC/HPF 0-3 0 - 3 /HPF 05/17/2023 8:02 PM TONG SETTER [facility] EPI/HPF 0-3 /HPF 05/17/2023 8:02 PM TONG SETTER [facility] BACTERIA (U) NONE SEEN NONE SEEN 05/17/2023 8:02 PM TONG SETTER [facility] URINE SPECIMEN OBTAINED BY CLEAN CATCH PROCEDURE / Unknown 05/17/2023 2:24 PM TONG SETTER Jayson Ibarra DO URINE ORDERABLES Final R esult Performing Organization Address City/[facility]/ZIP Co de Phone Number [address] [address], [place] [phone] * TSH W/REFLEX (05/17/2023 2:24 PM TONG SETTER) TSH 1.026 0.358 - 3.740 uIU/ML 05/17/2023 8:46 PM TONG SETTER [facility] 05/17/2023 2:24 PM TONG SETTER Jayson Ibarra DO LABORATORY Final Re sult Performing Organization Address [facility]/ZIP Co de Phone Number [address] [address], [place] [phone] * CBC W/DIFF AUTOMATED (05/17/2023 2:24 PM TONG SETTER) WBC 8.23 4.00 - 10.80 x10'3/uL 05/17/2023 8:30 PM TONG SETTER [facility] RBC 5.60 4.50 - 6.10 x10'6/uL 05/17/2023 8:30 PM TONG SETTER [facility] HGB 16.1 13.0 - 18.0 G/DL 05/17/2023 8:30 PM TONG SETTER [facility] HCT 48.1 37.0 - 52.0 % 05/17/2023 8:30 PM TONG SETTER [facility] MCV 85.9 78.0 - 100.0 FL 05/17/2023 8:30 PM [facility] MCH 28.8 27.0 - 31.0 PG 05/17/2023 8:30 PM TONG SETTER [facility] MCHC 33.5 33.0 - 36.0 G/DL 05/17/2023 8:30 PM TONG SETTER [facility] RDW 13.0 11.5 - 14.5 % 05/17/2023 8:30 PM TONG SETTER [facility] PLT 229 150 - 350 x10'3/uL 05/17/2023 8:30 PM TONG SETTER [facility] MPV 10.2 7.4 - 10.4 FL 05/17/2023 8:30 PM [facility] DIFFERENTIAL TYPE AUTOMATED DIFFERENTIAL 05/17/2023 8:30 PM TONG SETTER [facility] NEUTROPHILS % 72.2 % 05/17/2023 8:30 PM [facility] LYMPHOCYTES % 17.3 % 05/17/2023 8:30 PM [facility] MONOCYTES % 6.3 % 05/17/2023 8:30 PM [facility] EOSINOPHILS % 3.4 % 05/17/2023 8:30 PM TONG SETTER [facility] BASOPHILS % 0.6 % 05/17/2023 8:30 PM TONG SETTER [facility] IMMATURE GRANS % 0.2 % 05/17/2023 8:30 PM TONG SETTER [facility] ABS. NEUTROPHILS 5.94 1.60 - 8.30 x10'3/uL 05/17/2023 8:30 PM TONG SETTER [facility] ABS. LYMPHOCYTES 1.42 0.80 - 4.70 x10'3/uL 05/17/2023 8:30 PM TONG SETTER [facility] ABS. MONOCYTES 0.52 0.00 - 1.50 x10'3/uL 05/17/2023 8:30 PM TONG SETTER [facility] ABS. EOSINOPHILS 0.28 0.00 - 0.40 x10'3/uL 05/17/2023 8:30 PM TONG SETTER [facility] ABS. BASOPHILS 0.05 0.00 - 0.20 x10'3/uL 05/17/2023 8:30 PM TONG SETTER [facility] ABS. IMMATURE GRANULOCYTES 0.02 0.00 - 0.03 x10'3/uL 05/17/2023 8:30 PM TONG SETTER [facility] 05/17/2023 2:24 PM TONG SETTER Jayson Ibarra DO LABORATORY Final Re sult [facility] [address] [place] [address], [place] [phone] documented in this encounter Visit Diagnoses Diagnosis Encounter to establish care with new doctor- Primary Other reasons for seeking consultation Type 2 diabetes mellitus without complication, without long-term current use of insulin ([facility] HHS/HCC) Hypertension associated with type 2 diabetes mellitus ([facility] HHS/HCC) Screening for malignant neoplasm of colon Seasonal allergies Allergic rhinitis, cause unspecified Benign prostatic hyperplasia with lower urinary tract symptoms, symptom details unspecified Stage 3a chronic kidney disease (CKD) ([facility]/HCC HHS/HCC) Hyperlipidemia associated with type 2 diabetes mellitus ([facility] HHS/HCC) documented in this encounter Care Teams Cafeteria Helper Relationship Specialty Start Date End Date Jayson Ibarra DO [address] [place] [address] [phone] PCP - General FAMILY PRACTICE 05/17/23 documented as of this encounter
--- OUTSIDE RECORDS SUMMARY | 2024-07-10 19:58 | XMS_ITS | Encounter Summary ---
Author Organization [facility] Address [address] [place] [address]. [place] [address] [place] [address] Care Team Providers Care Hostage Negotiator Name Role Phone Jayson Ibarra DO Primary Care Provider + Reason for Visit * Reason Onset Date Comments Medication Request 06/07/2023 Encounter Details Date Type Department Care Team (Late st Contact Info) Description 06/07/2023 Telephone [facility] Family & Internal Medicine [facility] [address] [place] [phone] Jayson Ibarra DO [address] [place] [address] Medication Request Social History Tobacco Use Types Packs/Day Years [...] as of this encounter Progress Notes * Jeaneth Rangel MA - 06/07/2023 1:21 PM CSTAddended by: JEANETH RANGEL on: 06/07/2023 01:21 PM Modules accepted: Orders NICAL TRANSLATOR * Kia Booth MA - 06/07/2023 12:23 PM CST 90 day supply sent. NICAL TRANSLATOR * Radha Mirza - 06/07/2023 11:11 AM CST Received call from Pharmacy that PT would like a 90 day supply for the medication listed below. Please advise. Dapagliflozin Propanediol (FARXIGA) 5 MG Tab NICAL TRANSLATOR documented in this encounter Plan of Treatment Upcoming Encounters Date Type Department Care Team (Late st Contact Info) Description 07/11/2024 8:20 AM TECHNICAL TRANSLATOR Office Visit [facility] Family & Internal Medicine [address] [phone] Jayson Ibarra DO [address] [place] [address] documented as of this encounter Visit Diagnoses Diagnosis Stage 3a chronic kidney disease (CKD) ([facility]) Type 2 diabetes mellitus with microalbuminuria, without long-term current use of insulin ([facility]) documented in this encounter Care Teams Hostage Negotiator Relationship Specialty Start Date End Date Jayson Ibarra DO [address] [place] [address] PCP - General FAMILY PRACTICE 05/17/23 documented as of this encounter
--- OUTSIDE RECORDS SUMMARY | 2024-07-10 19:58 | XMS_ITS | Encounter Summary ---
Author Organization [facility] Address [address] [place] [address]. [place], [place] [id number] [place] [address] Care Team Providers Care Road Equipment Operator Name Role Phone Jayson Ibarra DO Primary Care Provider + Reason for Visit * Reason Comments Diabetes Encounter Details Date Type Department Care Team (Late st Contact Info) Description 03/30/2024 8:20 AM CDT Office Visit [facility] Family & Internal Medicine [place] [place] [address] Jayson Ibarra DO [facility] [place], [place] [id number] Diabetes Social History Tobacco Use Types Packs/Day Years Used Date Smoking Tobacco: Former Cigarettes 1 10 1 1982 Passive Smoke Exposure: Yes Smokeless Tobacco: Never Tobacco Cessation:Counseling Given: Yes Alcohol Use Standard Drinks/Week Comments Not Currently [...] Sign Reading Time Taken Comments Blood Pressure 114/68 03/30/2024 8:04 AM CDT Pulse 69 03/30/2024 8:04 AM CDT Temperature 36.8 ??C (98.2 ??F) 03/30/2024 8:04 AM CD T Respiratory Rate 16 03/30/2024 8:04 AM CDT Oxygen Saturation 98% 03/30/2024 8:04 AM CDT Inhaled Oxygen Concentration - - Weight 78.4 kg (172 lb 14.4 oz) 03/30/2024 8:04 AM CDT Height 172.7 cm (5' 8 ) 03/30/2024 8:04 AM CDT Body Mass Index 26.29 03/30/2024 8:04 AM CDT documented in this encounter Progress Notes * Jasyon Rivers Fred, DO - 03/30/2024 8:20 AM CDT Images from the original note were not included. GENERAL OFFICE VISIT Encounter Date: 03/30/2024 Chief Complaint: 68-year-old male presents for Diabetes HPI: Patient presents for follow-up on essential hypertension. Patient has had hypertension for multipleyears. Current medications include Lisinopril. He was told to take it only as needed. Patient's blood pressure is well controlled at this time. Patient occasionally take his/her blood pressure at home. Ranges are WNL. No side effects noted from medications. Concurrent conditions include Diabetes Mellitus, Hyperlipidemia, and Chronic Kidney Disease. Patient has Type 2 Diabetes. Patient has had diabetes for 1 year. Medications include Farxiga. BS logs range: acceptable. Patient's weight has gone down 2 lbs Current symptoms include CKD 3a; pt has hx of focal segmental glomerulosclerosis and follows with nephrology for this. HGB A1C Date Value Ref Range Status 03/30/2024 7.1 % Final 12/29/2023 6.3 % Final 09/21/2023 6.8 % Final 05/17/2023 7.3 (H) 4.5 - 6.2 % Final MICROALBUMIN (U) Date Value Ref Range Status 05/17/2023 >850.0 (H) <20 MG/L Final Patient presents for follow-up on HLD. Patient has had HLD fr multiple years. Current medications include simvastatin. Current side effects include none. Patient does not need labs drawn today. Review of Systems Constitutional: Negative for fever. Respiratory: Negative for shortness of breath. Cardiovascular: Negative for chest pain. Gastrointestinal: Negative for abdominal pain. Genitourinary: Negative for dysuria. Skin: Negative for rash. Patient Active Problem List Diagnosis Cardiac pacemaker in situ Left bundle branch block (LBBB) Second degree AV block, Mobitz type II Type 2 diabetes mellitus without complication, without long-term current use of insulin ([facility]) Hypertension associated with type 2 diabetes mellitus ([facility]) Seasonal allergies Benign prostatic hyperplasia with lower urinary tract symptoms, symptom details unspecified Stage 3a chronic kidney disease (CKD) ([facility]) Hyperlipidemia associated with type 2 diabetes mellitus ([facility]) History of permanent cardiac pacemaker placement Past Medical History: Diagnosis Date Chronic kidney disease Diabetes mellitus ([facility]) Enlarged prostate FSGS (focal segmental glomerulosclerosis) Infectious [...] level: Not on file 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 40 capsule 0 cholecalciferol (VITAMIN D-[address]) [...] EACH NOSTRIL ONCE DAILY. 18.2 mL 5 predniSONE (DELTASONE) 20 MG tablet Take 3 tablets for three days, then take 2 tablets for three days, then take 1 tablet for three days 18 tablet 0 simvastatin (ZOCOR) 20 MG tablet Take [...] (three) times daily as needed for Cough. cholecalciferol (VITAMIN D-[address]) 25 mcg Tab tablet Take 1 tablet (1,000 Units total) by mouth daily. FARXIGA 5 MG Tab take one (1) tablet by mouth daily finasteride (PROSCAR) 5 MG tablet Take 1 tablet (5 mg total) by mouth daily. predniSONE (DELTASONE) 20 MG tablet Take 3 tablets for three days, then take 2 tablets for three days, then take 1 tablet for three days tamsulosin (FLOMAX) 0.4 MG Cap Take 1 capsule (0.4 mg total) by mouth nightly at bedtime. No current facility-administered medications on file prior to visit. Review of patient's allergies indicates: Allergen Reactions Sulfa Antibiotics Rash Objective: Filed Vitals: 03/30/24 0804 BP: 114/68 Pulse: 69 Resp: 16 Temp: 98.2 ??F (36.8 ??C) TempSrc: Skin SpO2: 98% Weight: 78.4 kg (172 lb 14.4 oz) Height: 1.727 m (5' 8 ) Physical Exam Vitals and nursing note reviewed. HENT: Head: Normocephalic and atraumatic. Right Ear: External ear normal. Left Ear: External ear normal. Eyes: Conjunctiva/sclera: Conjunctivae normal. Cardiovascular: Rate and Rhythm: Normal rate and regular rhythm. Heart sounds: Normal heart sounds. No murmur heard. No friction rub. No gallop. Pulmonary: Effort: Pulmonary effort is normal. No respiratory distress. Breath sounds: Normal breath sounds. No wheezing or rales. Abdominal: Palpations: Abdomen is soft. Tenderness: There is no abdominal tenderness. Musculoskeletal: Cervical back: Neck supple. Skin: General: Skin is warm and dry. Findings: No rash. Neurological: Mental Status: He is alert. Mental status is at baseline. Psychiatric: Mood and Affect: Mood and affect normal. Assessment & Plan: Jose was seen today for diabetes. Diagnoses and all orders for this visit: Type 2 diabetes mellitus without complication, without long-term current use of insulin ([facility]) - HEMOGLOBIN, GLYCOSYLATED - COLLECT.CAPILLARY (FNGR,HEEL,EAR) - ALBUMIN URINE RANDOM W/CREATININE; Future - CBC W/DIFF AUTOMATED; Future - COMPREHENSIVE METABOLIC PANEL; Future - TSH W/REFLEX; Future - LIPID PANEL; Future - ALBUMIN URINE RANDOM W/CREATININE - CBC W/DIFF AUTOMATED - COMPREHENSIVE METABOLIC PANEL - TSH W/REFLEX - LIPID PANEL Hypertension associated with type 2 diabetes mellitus ([facility]) - ALBUMIN URINE RANDOM W/CREATININE; Future - CBC W/DIFF AUTOMATED; Future - COMPREHENSIVE METABOLIC PANEL; Future - TSH W/REFLEX; Future - LIPID PANEL; Future - ALBUMIN URINE RANDOM W/CREATININE - CBC W/DIFF AUTOMATED - COMPREHENSIVE METABOLIC PANEL - TSH W/REFLEX - LIPID PANEL Hyperlipidemia associated with type 2 diabetes mellitus ([facility]) - ALBUMIN URINE RANDOM W/CREATININE; Future - CBC W/DIFF AUTOMATED; Future - COMPREHENSIVE METABOLIC PANEL; Future - TSH W/REFLEX; Future - LIPID PANEL; Future - ALBUMIN URINE RANDOM W/CREATININE - CBC W/DIFF AUTOMATED - COMPREHENSIVE METABOLIC PANEL - TSH W/REFLEX - LIPID PANEL - simvastatin (ZOCOR) 20 MG tablet; Take 1 tablet (20 mg total) by mouth nightly at bedtime. at bedtime Acute bronchitis, unspecified organism - albuterol sulfate HFA 108 (90 Base) MCG/ACT inhaler; Inhale 2 puffs into the lungs every 4 (four)hours as needed. Wheezing - albuterol sulfate HFA 108 (90 Base) MCG/ACT inhaler; Inhale 2 puffs into the lungs every 4 (four)hours as needed. Seasonal allergies - fluticasone propionate (FLONASE) 50 MCG/ACT nasal spray; SHAKE LIQUID AND USE 2 SPRAYS IN EACH NOSTRIL ONCE DAILY. Discussion/Summary: Continue all medications as prescribed and lifestyle changes for above conditions; again stable today. A1c is likely mildly increased due to recent prednisone. Refilled meds today. Continue f/u with all specialists. Obtain labs prior to next OV as ordered above. Will have pt f/u in 3 months or sooner if needed. Pt v/u. Jayson Ibarra, DO documented in this encounter Plan of Treatment Upcoming Encounters Date Type Department Care Team (Late st Contact Info) Description 07/11/2024 8:20 AM CARE TECH Office Visit [facility] Family & Internal Medicine - [phone] [place] [address] Jayson Ibarra DO [address] [place] [address] documented as of this encounter Procedures Procedure Name Priority Date/Time Associated Diagnosis Comments TSH W/REFLEX Routine 06/30/2024 8:36 AM CARE TECH Type 2 diabetes mellitus without complication, without long-term current use of insulin (CMS/HCC HHS/HCC) Hypertension associated with type 2 diabetes mellitus (CMS/HCC HHS/HCC) Hyperlipidemia associated with type 2 diabetes mellitus (CMS/HCC HHS/HCC) ALBUMIN URINE RANDOM W/CREATININE Routine 06/30/2024 8:36 AM CARE TECH Type 2 diabetes mellitus without complication, without long-term current use of insulin (CMS/HCC HHS/HCC) Hypertension associated with type 2 diabetes mellitus (CMS/HCC HHS/HCC) Hyperlipidemia associated with type 2 diabetes mellitus (CMS/HCC HHS/HCC) COMPREHENSIVE METABOLIC PANEL Routine 06/30/2024 8:36 AM CARE TECH Type 2 diabetes mellitus without complication, without long-term current use of insulin (CMS/HCC HHS/HCC) Hypertension associated with type 2 diabetes mellitus (CMS/HCC HHS/HCC) Hyperlipidemia associated with type 2 diabetes mellitus (CMS/HCC HHS/HCC) LIPID PANEL Routine 06/30/2024 8:36 AM CARE TECH Type 2 diabetes mellitus without complication, without long-term current use of insulin (CMS/HCC HHS/HCC) Hypertension associated with type 2 diabetes mellitus (CMS/HCC HHS/HCC) Hyperlipidemia associated with type 2 diabetes mellitus (CMS/HCC HHS/HCC) CBC W/DIFF AUTOMATED Routine 06/30/2024 8:36 AM CARE TECH Type 2 diabetes mellitus without complication, without long-term current use of insulin (CMS/HCC HHS/HCC) Hypertension associated with type 2 diabetes mellitus (CMS/HCC HHS/HCC) Hyperlipidemia associated with type 2 diabetes mellitus (CMS/HCC HHS/HCC) COLLECT.CAPILLARY (FNGR,HEEL,EAR) Routine 03/30/2024 7:55 AM CDT Type 2 diabetes mellitus without complication, without long-term current use of insulin (CMS/HCC HHS/HCC) HEMOGLOBIN, GLYCOSYLATED Routine 03/30/2024 Type 2 diabetes mellitus without complication, without long-term current use of insulin (CMS/HCC HHS/HCC) documented in this encounter Results * LIPID PANEL (06/30/2024 8:36 AM CARE TECH) CHOLESTEROL 110 100 - 199 mg/dL [facility] TRIGLYCERIDES 85 0 - 149 mg/dL [facility] HDL 41 >39 mg/dL [facility] VLDL CALCULATION 17 5 - 40 mg/dL [facility] LDL (CALCULATED) 52 0 - 99 mg/dL [facility] 06/30/2024 8:36 AM CARE TECH 06/30/2024 Narrative [facility] - 07/01/2024 9:08 AM CARE TECH Performed at: ??01 - [facility] ??[id number] Systems Eng: Jose Chu PhD, Phone: ??[phone] Jayson Ibarra DO LABORATORY Final Re sult [facility] [address] [place] [address] [facility] * TSH W/REFLEX (06/30/2024 8:36 AM CARE TECH) TSH 1.500 0.450 - 4.50 uIU/mL [facility] 1 06/30/2024 8:36 AM CARE TECH 06/30/2024 Narrative [facility] - 07/01/2024 9:08 AM CARE TECH Performed at: ??[address] [facility] [address] ??[id number] Systems Eng: Jose Chu PhD, Phone: ??[phone] Jayson Ibarra DO LABORATORY Final Re sult [facility] [address] [place] [address] [facility] * (ABNORMAL) COMPREHENSIVE METABOLIC PANEL (06/30/2024 8:36 AM CARE TECH) GLUCOSE 138(H) 70 - 99 mg/dL [facility] BUN 28(H) 8 - 27 mg/dL [facility] CREATININE S/P/B 1.63(H) 0.76 - 1.27 mg/dL [facility] GFR ESTIMATE 45(L) >59 mL/min/1.7 3 [facility] BUN CREATININE RATIO 17 10 - 24 [facility] SODIUM S/P/B 137 134 - 144 mmol/L [facility] POTASSIUM S/P/B 4.4 3.5 - 5.2 mmol/L [facility] 1 CHLORIDE S/P/B 107(H) 96 - 106 mmol/L [facility] CO2 19(L) 20 - 29 mmol/L [facility] CALCIUM S/P/B 10.1 8.6 - 10.2 mg/dL [facility] TOTAL PROTEIN S/P/B 6.1 6.0 - 8.5 g/dL [facility] ALBUMIN S/P/B 3.9 3.8 - 4.8 g/dL [facility] GLOBULIN 2.2 1.5 - 4.5 g/dL [facility] BILIRUBIN TOTAL S/P/B 0.3 0.0 - 1.2 mg/dL [facility] ALKALINE PHOSPHATASE S/P/B 66 44 - 121 IU/L [facility] AST 12 0 - 40 IU/L [facility] ALT 10 0 - 44 IU/L [facility] 1 06/30/2024 8:36 AM CARE TECH 06/30/2024 Narrative [facility] - 07/01/2024 9:08 AM CARE TECH Performed at: ??01 - [facility] [address] ??[id number] Systems Eng: Jose Chu PhD, Phone: ??[phone] Jayson Ibarra DO LABORATORY Final Re sult [facility] [address] [place] [address] [facility] * (ABNORMAL) CBC W/DIFF AUTOMATED (06/30/2024 8:36 AM CARE TECH) WBC 8.4 3.4 - 10.8 x10E3/uL [facility] RBC 3.39(L) 4.14 - 5.80 x10E6/uL [facility] HGB 6.5(LL) 13.0 - 17.7 g/dL [facility] HCT 24.7(L) 37.5 - 51.0 % [facility] MCV 73(L) 79 - 97 fL [facility] MCH 19.2(L) 26.6 - 33.0 pg [facility] MCHC 26.3(L) 31.5 - 35.7 g/dL [facility] RDW 15.1 11.6 - 15.4 % [facility] PLATELET COUNT 338 150 - 450 x10E3/uL [facility] NEUTROPHILS % 73 Not Estab. % [facility] LYMPHOCYTES % 14 Not Estab. % [facility] MONOCYTES % 8 Not Estab. % [facility] EOSINOPHILS % 4 Not Estab. % [facility] BASOPHILS % 1 Not Estab. % [facility] ABS. NEUTROPHILS 6.0 1.4 - 7.0 x10E3/uL [facility] ABS. LYMPHOCYTES 1.2 0.7 - 3.1 x10E3/uL [facility] MONOCYTES 0.7 0.1 - 0.9 x10E3/uL [facility] ABS. EOSINOPHILS 0.4 0.0 - 0.4 x10E3/uL [facility] ABS. BASOPHILS 0.1 0.0 - 0.2 x10E3/uL [facility] ABS. IMMATURE GRANULOCYTES 0 Not Estab. % [facility] ABS. IMMATURE GRANULOCYTES 0.0 0.0 - 0.1 x10E3/uL [facility] 1 06/30/2024 8:36 AM CARE TECH 06/30/2024 Narrative [facility] - 07/01/2024 9:08 AM CARE TECH Performed at: ??01 - [facility] ??[id number] Systems Eng: Jose Chu PhD, Phone: ??[phone] Jayson Ibarra DO LABORATORY Final Re sult Performing Organization Address [facility] de Phone Number [facility] [address] [place] [address] [facility] * (ABNORMAL) ALBUMIN URINE RANDOM W/CREATININE (06/30/2024 8:36 AM CARE TECH) [facility] CREATININE (URINE) 83.1 Not Estab. mg/dL [facility] ALBUMIN (U) 341.7 Not Estab. ug/mL [facility] ALBUMIN/CREAT RATIO 411(H) 0 - 29 mg/g creat [facility] 1 Comment: ? Normal: ?0 - ??29 ? Moderately increased: 30 - 300 ? Severely increased: ? >300 URINE SPECIMEN / Unknown 06/30/2024 8:36 AM CARE TECH 06/30/2024 Narrative [facility] - 07/01/2024 9:08 AM CARE TECH Performed at: ??01 - [facility] ??[id number] Systems Eng: Jose Chu PhD, Phone: ??[phone] Jayson Ibarra DO URINE ORDERABLES Final R esult Performing Organization Address [facility] de Phone Number [facility] [address] [place] [address] [facility] * HEMOGLOBIN, GLYCOSYLATED (03/30/2024) HGB A1C 7.1 % [facility] 03/30/2024 us Jayson Ibarra DO LABORATORY Final Re sult [facility] [address] [place] [address], documented in this encounter Visit Diagnoses Diagnosis Type 2 diabetes mellitus without complication, without long-term current use of insulin ([facility])- Primary Hypertension associated with type 2 diabetes mellitus ([facility]) Hyperlipidemia associated with type 2 diabetes mellitus ([facility]) Acute bronchitis, unspecified organism Wheezing Seasonal allergies Allergic rhinitis, cause unspecified documented in this encounter Care Teams Road Equipment Operator Relationship Specialty Start Date End Date Jayson Ibarra DO [facility] [place] [address] PCP - General FAMILY PRACTICE 05/17/23 documented as of this encounter
--- OUTSIDE RECORDS SUMMARY | 2024-07-10 19:58 | XMS_ITS | Encounter Summary ---
Author Organization [facility] Address [address] [place] [address]. [place], [place] [id number] [place] [address] Care Team Providers Care Epic Willow Analyst Name Role Phone Jayson Ibarra DO Primary Care Provider + Reason for Visit * Reason Onset Date Comments Medication Request 06/08/2023 Encounter Details Date Type Department Care Team (Late st Contact Info) Description 06/08/2023 Telephone [facility] Family & Internal Medicine [facility] [address] [place] [phone] Jayson Ibarra DO [address] [place] [address] Medication Request Social History Tobacco [...] Progress Notes * Kia Booth MA - 06/08/2023 1:42 PM CST Spoke with patient and his . They state z-pack does not work for patient. They state the patient will try it and most likely call the office to schedule a follow up. P TENDER * Jayson Ibarra DO - 06/08/2023 12:46 PM CST Will pend z-pack, but if not improving needs to be seen at urgent care as we cannot manage fully since he is in [place]. Med pended. P TENDER * Kia Smalls - 06/08/2023 7:02 AM CST Symptoms started 3 days ago, yellow mucus, cough and stopped up sinuses. In [place] due to her Daughter having Breast cancer. [facility] [address] [facility] [phone] P TENDER documented in this encounter Plan of Treatment Upcoming Encounters Date Type Department Care Team (Late st Contact Info) Description 07/11/2024 8:20 AM STEEP TENDER Office Visit [facility] Family & Internal Medicine - [address] [phone] Jayson Ibarra DO [address] [place] [address] documented as of this encounter Visit Diagnoses Diagnosis URI (upper respiratory infection)- Primary Acute upper respiratory infections of unspecified site documented in this encounter Care Teams Epic Willow Analyst Relationship Specialty Start Date End Date Jayson Ibarra DO [address] [place] [address] PCP - General FAMILY PRACTICE 05/17/23 documented as of this encounter
--- OUTSIDE RECORDS SUMMARY | 2024-07-10 19:58 | XMS_ITS | Clinical Summary ---
Author Organization [facility] Address [address] [place] [address]. [place], [place] [id number] [place] [id number] Care Team Providers Care Leather Whitener Name Role Phone Jayson Ibarra DO Primary Care Provider + Allergies Active Allergy Reactions Criticality Noted Date Comments Sulfa Antibiotics Rash Medium 05/17/2023 Medications aspirin EC (ECOTRIN) 81 MG tablet Take 1 tablet (81 mg total) by mouth daily. Active cholecalciferol (VITAMIN D-[address]) 25 mcg Tab tablet Take 1 tablet (1,000 Units total) by mouth daily. Active finasteride (PROSCAR) 5 MG tablet Take 1 tablet (5 mg total) by mouth daily. 3 Active tamsulosin (FLOMAX) 0.4 MG Cap Take 1 capsule (0.4 mg total) by mouth nightly at bedtime. 3 Active benzonatate (TESSALON PERLES) 100 MG capsuleIndicatio ns:Cough, unspecified type Take 1-2 capsules (100-200 mg total) by mouth 3 (three) times daily as needed for Cough. 40 capsule 4 Active Additional Information Patient not taking.Reported on 05/05/2024 simvastatin (ZOCOR) 20 MG tabletIndication s:Hyperlipidemia associated with type 2 diabetes mellitus (CMS/HCC HHS/HCC) Take 1 tablet (20 mg total) by mouth nightly at bedtime. at bedtime 90 tablet 3 4 Active fluticasone propionate (FLONASE) 50 MCG/ACT nasal sprayIndications :Seasonal allergies SHAKE LIQUID AND USE 2 SPRAYS IN EACH NOSTRIL ONCE DAILY. 18.2 mL 5 4 Active albuterol sulfate HFA 108 (90 Base) MCG/ACT inhalerIndicatio ns:Acute bronchitis, unspecified organism,Wheezin g Inhale 2 puffs into the lungs every 4 (four) hours as needed. 18 g 5 4 Active lisinopril (PRINIVIL) 10 MG tablet Take 1 tablet (10 mg total) by mouth daily. Take as needed 4 Active FARXIGA 5 MG TabIndications:S tage 3a chronic kidney disease (CKD) ([facility]),Type 2 diabetes mellitus with microalbuminuria , without long-term current use of insulin ([facility]) TAKE ONE (1) TABLET BY MOUTH DAILY 30 tablet 2 4 Active folic acid (FOLVITE) 1 MG tablet Take 1 tablet (1 mg total) by mouth daily. Active ferrous sulfate, 65 mg elemental, 325 (65 FE) MG tablet Take 1 tablet (325 mg total) by mouth daily with breakfast. Active Active Problems Problem Noted Date Diagnosed Date History of permanent cardiac pacemaker placement 08/23/2023 Type 2 diabetes mellitus wit hout complication, without long-term current use of insulin ([facility]) 05/17/2023 Hypertension associated with type 2 diabetes mellitus ([facility]) 05/17/2023 Seasonal allergies 05/17/2023 Benign prostatic hyperplasia with lower urinary tract symptoms, symptom details unspecified 05/17/2023 Stage 3a chronic kidney disease (CKD) ([facility]) 05/17/2023 Hyperlipidemia associated wi th type 2 diabetes mellitus ([facility]) 05/17/2023 Second degree AV block, Mobitz type II 9 Cardiac pacemaker in situ 11/30/2018 Overview (05/17/2023): Biotronik Dual Pacemaker. Dx; Second Degree AVB. DOI 11/26/2018- Biotronik remote monitoring, office checks Q1 yr. Left bundle branch block (LBBB) 08/06/2014 Encounters Date Type Department Care Team Description 07/07/2024 Telephone [facility] [address] [phone] Jayson Ibarra, DO Results 07/06/2024 8:10 AM MECHANICAL LABORATORY TECHNICIAN - 07/06/2024 11:59 PM [facility] Hospital Encounter [facility] [address] [place] [address] Isaac Perry II, MD Discharge Disposition: Home or Self Care (Routine Discharge) 07/06/2024 Travel 07/03/[address] [phone] Isaac Perry II, MD Anemia 07/03/2024 Telephone [facility] [address] [phone] Jayson Ibarra, DO Lab Results 05/05/2024 2:40 PM CDT Telemedicine [facility] [address] [phone] Jayson Ibarra DO URI (Bilateral Ear congestion (more right than left), sinus congestion. Sx x1 week. The patient states he is taking mucinex-d max and nasal spray. ) 05/05/2024 Telephone [facility] [address] [phone] Jayson Ibarra, DO Medication from Last 3 Months Immunizations Name Administration Dates Next Due Fluzone High Dose - >Age 65 (Prefilled Syringe) 05/10/2023,04/06/2022,04/30/2021,2019 Influenza (Generic) 06/05/2012 Influenza Adult (Generic) 04/20/2018,06/2017,04/25/2015,2012 PFIZER COVID-19 (12+) MRNA, LNP-S, PF, GURPREET-SUCROSE, 30 MCG/0.3 ML (COMIRNATY) 07/14/2023 Pneumococcal (Pneumovax 23) 05/18/2021 Pneumococcal (Prevnar 13) 05/14/2020 Shingrix 10/23/2023 Tdap (Generic) 05/07/2012 Family History Medical History Relation Comments Heart Attack Father Stroke Father Heart Disease Mother Relation Status Comments Father Mother Social History Tobacco Use Types Packs/Day Years Used Date Smoking Tobacco: Former Cigarettes 1 10 1 973 - 1982 Passive Smoke Exposure: Yes Smokeless Tobacco: [...] file Not on file Not on file Last Filed Vital Signs Vital Sign Reading [...] Mass Index 26.29 03/30/2024 8:04 AM CDT Plan of Treatment Upcoming Encounters Date Type Department Care Team (Late st Contact Info) Description 07/11/2024 8:20 AM MECHANICAL LABORATORY TECHNICIAN Office Visit [facility] Family & Internal Medicine - [address] [phone] Jayson Ibarra DO [address] [place] [address] Health Maintenance Due Date Last Done Comments Diabetes: Retinopathy Eye Exam 1971 RSV Immunization or 60+ Years (1 - Risk 60-74 years 1-dose series) 2013 Annual Medicare Wellness Visit 2018 DTaP, Tdap and Td Vaccines (2 - Td or Tdap) 05/07/2022 05/07/2012 COVID-19 Vaccine ( season) 2024 07/14/2023, 03/26/2022, 10/22/2021, Additional history exists Influenza Adult (#1) 2024 05/10/2023, 04/06/2022, 04/30/2021, Additional history exists Hemoglobin A1C 09/27/2024 03/30/2024, 12/04, 09/21/2023, Additional history exists Zoster Vaccines (2 of 2) 12/28/2024 10/23/2023 Pos tponed from 12/18/2023 (Going to Outside Clinic) AAA SCREENING 03/15/2025 Postponed from 2018 (Per Provider Recommendation) Kidney Health Evaluation 06/30/2025 06/30/2024 Lipid Panel 06/30/2025 06/30/2024, 12/0 03/2024, 05/12/2023 Colorectal Cancer Screening FIT-DNA (3 Years) 05/24/2026 05/24/2023, 05/24/2023 Hepatitis C Completed 07/05/2000 Colorectal Cancer Screening Colonoscopy (10 Years) Discontinued 03/29/2015 Pneumococcal Vaccine: 65+ Years Completed 05/18/2021, 05/14/2020 Meningococcal Vaccine Aged Out No elias tanika eligible based on patient's age to complete this topic RSV Immunizations Under 20 Months Aged Out No longer eligible based on patient's age to complete this topic Procedures Procedure Name Priority Date/Time Associated Diagnosis Comments IRON SAT PANEL (IRON,IBC,%SAT) Routine 07/06/2024 8:23 AM MECHANICAL LABORATORY TECHNICIAN Anemia, unspecified type FERRITIN Routine 07/06/2024 8:23 AM MECHANICAL LABORATORY TECHNICIAN Anemia, unspecified type LDH, LACTATE DEHYDROGENASE Routine 07/06/2024 8:23 AM MECHANICAL LABORATORY TECHNICIAN Anemia, unspecified type HAPTOGLOBIN, QUANT Routine 07/06/2024 8: 23 AM MECHANICAL LABORATORY TECHNICIAN Anemia, unspecified type RETICULOCYTE CT, AUTO Routine 07/06/2024 8:23 AM MECHANICAL LABORATORY TECHNICIAN Anemia, unspecified type FOLIC ACID SERUM Routine 07/06/2024 8:23 AM MECHANICAL LABORATORY TECHNICIAN Anemia, unspecified type VITAMIN B-12 Routine 07/06/2024 8:23 AM MECHANICAL LABORATORY TECHNICIAN Anemia, unspecified type CBC W/DIFF AUTOMATED Routine 07/06/2024 8:23 AM MECHANICAL LABORATORY TECHNICIAN Anemia, unspecified type LIPID PANEL Routine 06/30/2024 8:36 AM MECHANICAL LABORATORY TECHNICIAN Type 2 diabetes mellitus without complication, without long-term current use of insulin (CMS/HCC HHS/HCC) Hypertension associated with type 2 diabetes mellitus (CMS/HCC HHS/HCC) Hyperlipidemia associated with type 2 diabetes mellitus (CMS/HCC HHS/HCC) TSH W/REFLEX Routine 06/30/2024 8:36 AM MECHANICAL LABORATORY TECHNICIAN Type 2 diabetes mellitus without complication, without long-term current use of insulin (CMS/HCC HHS/HCC) Hypertension associated with type 2 diabetes mellitus (CMS/HCC HHS/HCC) Hyperlipidemia associated with type 2 diabetes mellitus (CMS/HCC HHS/HCC) COMPREHENSIVE METABOLIC PANEL Routine 06/30/2024 8:36 AM MECHANICAL LABORATORY TECHNICIAN Type 2 diabetes mellitus without complication, without long-term current use of insulin (CMS/HCC HHS/HCC) Hypertension associated with type 2 diabetes mellitus (CMS/HCC HHS/HCC) Hyperlipidemia associated with type 2 diabetes mellitus (CMS/HCC HHS/HCC) CBC W/DIFF AUTOMATED Routine 06/30/2024 8:36 AM MECHANICAL LABORATORY TECHNICIAN Type 2 diabetes mellitus without complication, without long-term current use of insulin (CMS/HCC HHS/HCC) Hypertension associated with type 2 diabetes mellitus (CMS/HCC HHS/HCC) Hyperlipidemia associated with type 2 diabetes mellitus (CMS/HCC HHS/HCC) ALBUMIN URINE RANDOM W/CREATININE Routine 06/30/2024 8:36 AM MECHANICAL LABORATORY TECHNICIAN Type 2 diabetes mellitus without complication, without long-term current use of insulin (CMS/HCC HHS/HCC) Hypertension associated with type 2 diabetes mellitus (CMS/HCC HHS/HCC) Hyperlipidemia associated with type 2 diabetes mellitus (CMS/HCC HHS/HCC) HEMOGLOBIN, GLYCOSYLATED Routine 03/30/2024 Type 2 diabetes mellitus without complication, without long-term current use of insulin ([facility]/HCC HHS/HCC) COLOGUARD (EXACT SCIENCE) Routine 05/24/2023 7:40 AM MECHANICAL LABORATORY TECHNICIAN Screening for malignant neoplasm of colon COLONOSCOPY GENERIC (SCAN ORDER) 03/29/2015 from Last 3 Months or Most Recently Relevant to Health Maintenance Results * (ABNORMAL) IRON SAT PANEL (IRON,IBC,%SAT) (07/06/2024 8:23 AM MECHANICAL LABORATORY TECHNICIAN) IRON 12(L) 65 - 175 MCG/DL 07/06/2024 9:54 AM MECHANICAL LABORATORY TECHNICIAN [facility] IRON BINDING CAPACITY 468(H) 250 - 450 MCG/DL 07/06/2024 9:54 AM [facility] IRON SATURATION 3(L) 20 - 55 % 9:54 AM MECHANICAL LABORATORY TECHNICIAN [facility] 07/06/2024 8:23 AM MECHANICAL LABORATORY TECHNICIAN Isaac Perry II, MD LABORATORY Final R esult [facility] [address] [place] [address], [place] [phone] * VITAMIN B-12 (07/06/2024 8:23 AM MECHANICAL LABORATORY TECHNICIAN) VITAMIN B12 S/P/B 561 193 - 986 PG/ML 07/06/2024 10:17 AM MECHANICAL LABORATORY TECHNICIAN [facility] 07/06/2024 8:23 AM MECHANICAL LABORATORY TECHNICIAN Isaac Perry II, MD LABORATORY Final R esult [facility] [address] [place] [address], [place] [phone] * (ABNORMAL) RETICULOCYTE CT, AUTO (07/06/2024 8:23 AM MECHANICAL LABORATORY TECHNICIAN) RETICULOCYTE COUNT 2.0(H) 0.5 - 1.5 % 07/06/2024 9:27 AM MECHANICAL LABORATORY TECHNICIAN [facility] 07/06/2024 8:23 AM MECHANICAL LABORATORY TECHNICIAN Isaac Perry II, MD LABORATORY Final R esult Performing Organization Address City/[facility]/ZIP Co de Phone Number [facility] [address] [place] [address], [place] [phone] * (ABNORMAL) HAPTOGLOBIN, QUANT (07/06/2024 8:23 AM MECHANICAL LABORATORY TECHNICIAN) HAPTOGLOBIN 213.0(H) 30.0 - 200.0 MG/DL 07/06/2024 3:03 PM MECHANICAL LABORATORY TECHNICIAN [facility] 07/06/2024 8:23 AM MECHANICAL LABORATORY TECHNICIAN Isaac Perry II, MD LABORATORY Final R esult [facility] [address] [place] [address], [place] [phone] * LDH, LACTATE DEHYDROGENASE (07/06/2024 8:23 AM MECHANICAL LABORATORY TECHNICIAN) LDH 144 87 - 241 UNITS/L 07/06/2024 10:08 AM MECHANICAL LABORATORY TECHNICIAN [facility] 07/06/2024 8:23 AM MECHANICAL LABORATORY TECHNICIAN us Isaac Perry II, MD LABORATORY Final R esult [facility] [address] [place] [address], [place] [phone] * (ABNORMAL) FOLIC ACID SERUM (07/06/2024 8:23 AM MECHANICAL LABORATORY TECHNICIAN) FOLATE 8.5(L) 8.6 - 58.9 NG/ML 07/06/2024 10:17 AM MECHANICAL LABORATORY TECHNICIAN [facility] 07/06/2024 8:23 AM MECHANICAL LABORATORY TECHNICIAN us Isaac Perry II, MD LABORATORY Final R esult Performing Organization Address [facility] Co de Phone Number [facility] [address] [place] [address], [place] [phone] * (ABNORMAL) CBC W/DIFF AUTOMATED (07/06/2024 8:23 AM MECHANICAL LABORATORY TECHNICIAN) Only the most recent of2 resultswithin the time period is included. WBC 11.51(H) 4.4 - 11.0 x10'3/uL 07/06/2024 9:27 AM [facility] RBC 4.22(L) 4.50 - 5.90 x10'6/uL 07/06/2024 9:27 AM [facility] HGB 8.7(L) 14.0 - 17.5 G/DL 07/06/2024 9:27 AM [facility] HCT 30.7(L) 41.5 - 50.4 % 07/06/2024 9:27 AM [facility] MCV 72.7(L) 80.0 - 96.0 FL 07/06/2024 9:27 AM [facility] MCH 20.6(L) 26.5 - 31.4 PG 07/06/2024 9:27 AM [facility] MCHC 28.3(L) 31.9 - 34.8 G/DL 07/06/2024 9:27 AM [facility] RDW 18.4(H) 12.3 - 14.3 % 07/06/2024 9:27 AM [facility] PLT 362(H) 151 - 353 x10'3/uL 07/06/2024 9:27 AM [facility] MPV 10.1 9.7 - 11.9 FL 07/06/2024 9:27 AM [facility] NEUTROPHILS % 79.6(H) 42.1 - 71.9 % 07/06/2024 10:08 AM [facility] LYMPHOCYTES % 8.0(L) 15.8 - 45.0 % 07/06/2024 10:08 AM [facility] BASOPHILS 0.7 0.0 - 1.3 % 07/06/2024 10:08 AM [facility] EOSINOPHILS 3.3 0.0 - 5.6 % 07/06/2024 10:08 AM [facility] MONOCYTES % 8.0 5.7 - 12.5 % 07/06/2024 10:08 AM [facility] IMMATURE GRANS % 0.4 0.0 - 0.5 % 07/06/2024 10:08 AM [facility] ABS. NEUTROPHILS 9.16(H) 1.40 - 6.00 x10'3/uL 07/06/2024 10:08 AM [facility] ABS. LYMPHOCYTES 0.92 0.80 - 4.70 x10'3/uL 07/06/2024 10:08 AM MECHANICAL LABORATORY TECHNICIAN [facility] PLT MORPH. NORMAL 07/06/2024 10:08 AM MECHANICAL LABORATORY TECHNICIAN [facility] RBC MORPHOLOGY SLIGHT 07/06/2024 10:08 AM MECHANICAL LABORATORY TECHNICIAN [facility] Comment: MICROCYTES SLIGHT ANISOCYTOSIS SLIGHT HYPOCHROMASIA WBC MORPHOLOGY NORMAL 07/06/2024 10:08 AM MECHANICAL LABORATORY TECHNICIAN [facility] 07/06/2024 8:23 AM MECHANICAL LABORATORY TECHNICIAN Isaac Perry II, MD LABORATORY Edited Result - Final Performing Organization Address City/[facility]/ZIP Co de Phone Number [facility] [address] [place] [address], [place] [phone] * FERRITIN (07/06/2024 8:23 AM MECHANICAL LABORATORY TECHNICIAN) FERRITIN 9.0 8.0 - 388.0 NG/ML 07/06/2024 10:08 AM MECHANICAL LABORATORY TECHNICIAN [facility] 07/06/2024 8:23 AM MECHANICAL LABORATORY TECHNICIAN Isaac Perry II, MD LABORATORY Final R esult Performing Organization Address City/[facility]/ZIP Co de Phone Number [facility] [address] [place] [address], [place] [phone] * TSH W/REFLEX (06/30/2024 8:36 AM MECHANICAL LABORATORY TECHNICIAN) TSH 1.500 0.450 - 4.50 uIU/mL [facility] 1 06/30/2024 8:36 AM MECHANICAL LABORATORY TECHNICIAN 06/30/2024 Narrative [facility] - 07/01/2024 9:08 AM MECHANICAL LABORATORY TECHNICIAN Performed at: ??01 - [facility] [address], [place], [place] ??[id number] Bending Press Operator: Jose Chu PhD, Phone: ??[phone] us Jayson Ibarra DO LABORATORY Final Re sult Performing Organization Address [facility] de Phone Number [facility] [address] [place] [address] [facility] 1 * (ABNORMAL) ALBUMIN URINE RANDOM W/CREATININE (06/30/2024 8:36 AM MECHANICAL LABORATORY TECHNICIAN) CREATININE (URINE) 83.1 Not Estab. mg/dL [facility] 1 ALBUMIN (U) 341.7 Not Estab. ug/mL [facility] 1 ALBUMIN/CREAT RATIO 411(H) 0 - 29 mg/g creat [facility] 1 Comment: ? Normal: ?0 - ??29 ? Moderately increased: 30 - 300 ? Severely increased: ? >300 URINE SPECIMEN / Unknown 06/30/2024 8:36 AM MECHANICAL LABORATORY TECHNICIAN 06/30/2024 Narrative [facility] - 07/01/2024 9:08 AM MECHANICAL LABORATORY TECHNICIAN Performed at: ??01 - [facility] [address] ??[id number] Bending Press Operator: Jose Chu PhD, Phone: ??[phone] us Jayson Ibarra DO URINE ORDERABLES Final R esult Performing Organization Address [facility] de Phone Number [facility] [address] [place] [address] [facility] 1 * (ABNORMAL) COMPREHENSIVE METABOLIC PANEL (06/30/2024 8:36 AM MECHANICAL LABORATORY TECHNICIAN) GLUCOSE 138(H) 70 - 99 mg/dL [facility] [...] 44 IU/L [facility] 1 06/30/2024 8:36 AM MECHANICAL LABORATORY TECHNICIAN 06/30/2024 Narrative [facility] - 07/01/2024 9:08 AM MECHANICAL LABORATORY TECHNICIAN Performed at: ??01 - [facility] [address] ??[id number] Bending Press Operator: Jose Chu PhD, Phone: ??[phone] us Jayson Ibarra DO LABORATORY Final Re sult [facility] [address] [place] [address] [facility] * LIPID PANEL (06/30/2024 8:36 AM MECHANICAL LABORATORY TECHNICIAN) CHOLESTEROL 110 100 - 199 mg/dL [facility] 1 TRIGLYCERIDES 85 0 - 149 mg/dL [facility] 1 HDL 41 >39 mg/dL [facility] 1 VLDL CALCULATION 17 5 - 40 mg/dL [facility] 1 LDL (CALCULATED) 52 0 - 99 mg/dL [facility] 1 06/30/2024 8:36 AM MECHANICAL LABORATORY TECHNICIAN 06/30/2024 Narrative [facility] - 07/01/2024 9:08 AM MECHANICAL LABORATORY TECHNICIAN Performed at: ??01 - [facility] [address] ??[id number] Bending Press Operator: Jose Chu PhD, Phone: ??[phone] us Jayson Rivers Luctiffanyefjuni DO LABORATORY Final Re sult Performing Organization Address [facility] Co de Phone Number [facility] [address] [place] [address] [facility] 1 * HEMOGLOBIN, GLYCOSYLATED (03/30/2024) HGB A1C 7.1 % [facility] 03/30/2024 us Jayson Ibarra DO LABORATORY Final Re sult Performing Organization Address [facility] de Phone Number [facility] [address] [place] [address], [place] * COLOGUARD (EXACT SCIENCE) (05/24/2023 7:40 AM MECHANICAL LABORATORY TECHNICIAN) COLOGUARD RESULT Negative Negative [employer] b[employer] (CLIA #:[id number]) Comment: NEGATIVE TEST RESULT. A negative Cologuard [...] screened with both Cologuard and colonoscopy. (Arin Brennan, N Engl J Med 2014;370(14):1286- 1297) The normal value (reference range) for this assay is negative. COLOGUARD RE-SCREENING RECOMMENDATION: Periodic colorectal cancer screening is an important part of preventive healthcare for asymptomatic individuals at average risk for colorectal cancer. ??Following a negative Cologuard result, the [place] [employer] Society and U.S. Multi-Society Task Force screening guidelines recommend a Cologuard re-screening interval of 3 years. References: [place] [employer] Guideline for Colorectal Cancer Screening: https://www.cancer.org/cancer/oruhe-zbwezx-tnzgby/snwlbboal-dhmpmaujk-sborgnd/ac s-rec ommendations.html.; Solo DK, Arnoldo BARNETT, Nitesh LawsonK, Colorectal Cancer Screening: Recommendations for Physicians and Patients from the U.S. Multi-Society Task Force on Colorectal Cancer Screening , Am J Gastroenterology 2017; 112:8960-7429. TEST DESCRIPTION: Composite algorithmic analysis of stool [...] (Arin Mcneill al, N Engl J Med 2014;370(14):5187-1378.) Cologuard may produce a false negative or false positive result (no colorectal cancer or precancerous polyp present at colonoscopy follow up). A negative Cologuard test result does not guarantee the absence of CRC or advanced adenoma (pre-cancer). The current Cologuard screening interval is every 3 years. ([place] [employer] and U.S. Multi-Society Task Force). Cologuard performance data in a 10,000 patient pivotal study using colonoscopy as the reference method can be accessed at the following location: www.[employer]/results. Additional description of the Cologuard test process, warnings and precautions can be found at www.cologuard.com. STOOL STOOL SPECIMEN / Unknown 05/24/2023 7:40 AM MECHANICAL LABORATORY TECHNICIAN 05/26/2023 12:58 AM MECHANICAL LABORATORY TECHNICIAN Jayson Ibarra DO BODY FLUIDS AND STOOLS O RDERABLES Final Result [employer] ([facility] [address] [facility]) [address] [place] [address], [employer] (CLIA #:[id number]) [address] [place] [address] * COLONOSCOPY GENERIC (03/29/2015) 03/29/2015 us [facility] Scanned SCANNING Final Resu lt from Last 3 Months or Most Recently Relevant to Health Maintenance Insurance MEDICARE [employer] Care Teams Leather Whitener Relationship Specialty Start Date End Date Jayson Ibarra DO [address] [place] [id number] PCP - General FAMILY PRACTICE 05/17/23
--- OUTSIDE RECORDS SUMMARY | 2024-07-10 19:58 | XMS_ITS | Encounter Summary ---
Author Organization [facility] Address [facility]. [place], [place] [address] [place] [address] Care Team Providers Care Delphi Programmer Name Role Phone Jayson Ibarra DO Primary Care Provider + Encounter Details Date Type Department Care Team (Latest Contact Info) Description 03/30/2024 Travel Social History Tobacco Use Types Packs/Day Years Used Date Smoking Tobacco: Former Cigarettes 1 10 973 1982 Passive Smoke Exposure: Yes Smokeless Tobacco: [...] st Contact Info) Description 07/11/2024 8:20 AM RAZOR GRINDER Office Visit [facility] Family & Internal Medicine [facility] [address] [place] [address] Jayson Ibarra DO [address] [place] [address] documented as of this encounter Visit Diagnoses Not on filedocumented in this encounter Care Teams Delphi Programmer Relationship Specialty Start Date End Date Jayson Ibarra DO [address] [place] [address] PCP - General FAMILY PRACTICE 05/17/23 documented as of this encounter
--- OUTSIDE RECORDS SUMMARY | 2024-07-10 19:58 | XMS_ITS | Encounter Summary ---
Author Organization [facility] Address [address] [place] [address]. [place], [place] [id number] [place] [id number] Care Team Providers Care Can Reconditioner Name Role Phone Jayson Ibarra DO Primary Care Provider + Reason for Visit * Reason Comments Diabetes 3 month follow up Encounter Details Date Type Department Care Team (Late st Contact Info) Description 12/29/2023 9:40 AM CDT Office Visit [facility] Family & Internal Medicine [address] [phone] [place] [address] Jayson Ibarra DO [address] [place] [address] [phone] Diabetes (3 month follow up ) Social History Tobacco Use Types Packs/Day [...] Sign Reading Time Taken Comments Blood Pressure 112/58 12/29/2023 9:23 AM CDT Pulse 95 12/29/2023 9:23 AM CDT Temperature 36.5 ??C (97.7 ??F) 12/29/2023 9:23 AM CD T Respiratory Rate 16 12/29/2023 9:23 AM CDT Oxygen Saturation 98% 12/29/2023 9:23 AM CDT Inhaled Oxygen Concentration - - Weight 78.9 kg (174 lb) 12/29/2023 9:23 AM CDT Height 172.7 cm (5' 8 ) 12/29/2023 9:23 AM CDT Body Mass Index 26.46 12/29/2023 9:23 AM CDT documented in this encounter Progress Notes * Jayson Ibarra, DO - 12/29/2023 9:40 AM CDT Images from the original note were not included. GENERAL OFFICE VISIT Encounter Date: 12/29/2023 Chief Complaint: 68-year-old male presents for Diabetes (3 month follow up ) HPI: Patient presents for follow-up on HLD. Patient has had HLD for multiple years. Current medications include simvastatin. This was last checked by cardiology in 2022. Current side effects include none.Patient does not need labs drawn today. Patient has Type 2 Diabetes. Patient has had diabetes for 1 year. Medications include Farxiga. BS logs range: acceptable. Patient's weight has not changed Current symptoms include CKD 3a; pt has hx of focal segmental glomerulosclerosis and follows with nephrology for this. HGB A1C Date Value Ref Range Status 12/29/2023 6.3 % Final 09/21/2023 6.8 % Final 05/17/2023 7.3 (H) 4.5 - 6.2 % Final MICROALBUMIN (U) Date Value Ref Range Status 05/17/2023 >850.0 (H) <20 MG/L Final Patient presents for follow-up on essential hypertension. Patient has had hypertension for multipleyears. Current medications include Lisinopril. He was told to take it only as needed. Patient's blood pressure is well controlled at this time. Patient occasionally take his/her blood pressure at home. Ranges are WNL. No side effects noted from medications. Concurrent conditions include Diabetes Mellitus, Hyperlipidemia, and Chronic Kidney Disease. Pt has pacemaker; he had a second degree AV Block that led to syncope. He sees Dr. Ashby for this. There is also noted LBBB. He has been stable on most recent check. He follows annually. Pt has BPH. Pt sees Dr. Jenkins for this. Pt is on finasteride and tamsulosin. No recent changes. Pt has hx of focal segmental glomerulosclerosis. Pt has CKD related to this and has both a creatinine and urine test run yearly for this with Dr. oGnzalez. Pt is asking if he can have Tessalon perles to take in case he has a cough in the future. Review of Systems Constitutional: Negative for fever. Respiratory: Negative for shortness of breath. Cardiovascular: Negative for chest pain. Gastrointestinal: Negative for abdominal pain. Skin: Negative for rash. Patient Active Problem List Diagnosis Cardiac pacemaker in situ Left bundle branch block (LBBB) Second degree AV block, Mobitz type II Type 2 diabetes mellitus without complication, without long-term current use of insulin ([facility]) Hypertension associated with type 2 diabetes mellitus ([facility]) Seasonal allergies Benign prostatic hyperplasia with lower urinary tract symptoms, symptom details unspecified Stage 3a chronic kidney disease (CKD) ([facility]) Hyperlipidemia associated with type 2 diabetes mellitus ([facility]) History of permanent cardiac pacemaker [...] level: Not on file 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[employer] Tobacco Use Smoking status: Former Current packs/day: 0.00 Average packs/day: 1 pack/day for 10.0 years (10.0 ttl pk-yrs) Types: Cigarettes Start date: 1972 Quit date: 1982 Years since quittin.5 Passive exposure: Never Smokeless tobacco: Never Vaping Use Vaping status: [...] MRNA, LNP-S, PF, GURPREET-SUCROSE, 30 MCG/0.3 ML (COMIRNATY 2022) 07/14/2023 PFIZER COVID-19 (WHITE CAP), MRNA, LNP-S, [...] Reactions Sulfa Antibiotics Rash Objective: Filed Vitals: 12/29/23 0923 BP: 112/58 Pulse: 95 Resp: 16 Temp: 97.7 ??F (36.5 ??C) TempSrc: Skin SpO2: 98% Weight: 78.9 kg (174 lb) Height: 1.727 m (5' 8 ) Physical [...] warm and dry. Findings: No rash. Neurological: General: No focal deficit present. Mental Status: He is alert. Psychiatric: Mood and Affect: Mood and affect normal. Assessment & Plan: Jose was seen today for diabetes. Diagnoses and all orders for this visit: Type 2 diabetes mellitus with microalbuminuria, without long-term current use of insulin [facility]) - HEMOGLOBIN, GLYCOSYLATED - COLLECT.CAPILLARY (FNGR,HEEL,EAR) Cough, unspecified type - benzonatate (TESSALON PERLES) 100 MG capsule; Take 1-2 capsules (100-200 mg total) by mouth 3 (three) times daily as needed for Cough. Stage 3a chronic kidney disease (CKD) ([facility]) Hypertension associated with type 2 diabetes mellitus ([facility]) Hyperlipidemia associated with type 2 diabetes mellitus ([facility]) Benign prostatic hyperplasia with lower urinary tract symptoms, symptom details unspecified S/P placement of cardiac pacemaker BMI 26.0-26.9,adult Discussion/Summary: Continue all medications as prescribed and lifestyle changes for above conditions; again stable today. Will send out tessalon perles today. Continue f/u with all specialists. Recommend AAA screning with [employer] screening. Will have pt f/u in 3 months or sooner if needed. Pt v/u. Jayson Ibarra DO documented in this encounter Plan of Treatment Upcoming Encounters Date Type Department Care Team (Late st Contact Info) Description 07/11/2024 8:20 AM ACID ETCH OPERATOR Office Visit [facility] Family & Internal Medicine - [address] [phone] Jayson Ibarra DO [address] [place] [address] documented as of this encounter Procedures Procedure Name Priority Date/Time Associated Diagnosis Comments COLLECT.CAPILLARY (FNGR,HEEL,EAR) Routine 12/29/2023 9:06 AM CDT Type 2 diabetes mellitus with microalbuminuria, without long-term current use of insulin ([facility]) HEMOGLOBIN, GLYCOSYLATED Routine 12/29/2023 Type 2 diabetes mellitus with microalbuminuria, without long-term current use of insulin ([facility]) documented in this encounter Results * HEMOGLOBIN, GLYCOSYLATED (12/29/2023) HGB A1C 6.3 % [facility] 12/29/2023 us Jayson Ibarra DO LABORATORY Final Re sult [address] [address], documented in this encounter Visit Diagnoses Diagnosis Type 2 diabetes mellitus with microalbuminuria, without long-term current use of insulin ([facility])- Primary Cough, unspecified type Stage 3a chronic kidney disease (CKD) ([facility]) Hypertension associated with type 2 diabetes mellitus ([facility]) Hyperlipidemia associated with type 2 diabetes mellitus ([facility]) Benign prostatic hyperplasia with lower urinary tract symptoms, symptom details unspecified S/P placement of cardiac pacemaker Cardiac pacemaker in situ BMI 26.0-26.9,adult Body Mass Index 26.0-26.9, adult documented in this encounter Care Teams Can Reconditioner Relationship Specialty Start Date End Date Jayson Ibarra DO [address] [place] [address] PCP - General FAMILY PRACTICE 05/17/23 documented as of this encounter
--- OUTSIDE RECORDS SUMMARY | 2024-07-10 19:58 | XMS_ITS | Encounter Summary ---
Author Organization [facility] Address [address] [place] [address]. [place], [place] [phone] [place] [address] Care Team Providers Care Gas Treater Name Role Phone Jayson Ibarra DO Primary Care Provider + Reason for Visit * Reason Comments Colonoscopy Report (SCAN) Encounter Details Date Type Department Care Team ([facility] Contact Info) Description 03/29/2015 Scan HEALTH INFO SRVCS Scanned, Doc Med Group Colonoscopy Report (SCAN) Social History Tobacco Use Types Packs/Day Years Used Date Smoking Tobacco: Never Assessed PHQ-2 Answer Date Recorded Patient Health Questionnaire-2 Score 0 05/17/2023 Sex and Gender Information Value Date Recorded Sex Assigned at Not on file Legal Sex Male 10:57 AM CDT Gender Identity Not on file Sexual Orientation Not on file documented as of this encounter Plan of Treatment Upcoming Encounters Date Type Department Care Team ([facility] Contact Info) Description 07/11/2024 8:20 AM SYNTHETIC DEPARTMENT SUPERVISOR Office Visit [facility] Family & Internal Medicine [facility] [address] [place] [address] Jayson Ibarra DO [facility] [place] [address] documented as of this encounter Procedures Procedure Name Priority Date/Time Associated Diagnosis Comments COLONOSCOPY GENERIC (SCAN ORDER) 03/29/2015 documented in this encounter Results * COLONOSCOPY GENERIC (03/29/2015) 03/29/2015 us Doc Med Group Scanned SCANNING Final Resu lt documented in this encounter Visit Diagnoses Not on filedocumented in this encounter Care Teams Gas Treater Relationship Specialty Start Date End Date Jayson Ibarra DO [address] [place] [address] PCP - General FAMILY PRACTICE 05/17/23 documented as of this encounter
--- OUTSIDE RECORDS SUMMARY | 2024-07-10 19:58 | XMS_ITS | Encounter Summary ---
Author Organization [facility] Address [address] [place] [address]. [place] [address] [place] [address] Care Team Providers Care Ladies Suit Operator Name Role Phone Jayson Ibarra DO Primary Care Provider + Reason for Visit * Reason Onset Date Comments Record Request 05/18/2023 Encounter Details Date Type Department Care Team (Late st Contact Info) Description 05/18/2023 Telephone [facility] Family & Internal Medicine [facility] [address] [place] [phone] Jayson Ibarra DO [address] [place] [address] Record Request Social History Tobacco Use Types Packs/Day [...] as of this encounter Progress Notes * Carmen Bonner MA - 05/24/2023 9:04 AM CST Received and sent to PCP TAL PROJECT ENGINEER * Caremn Bonner MA - 05/18/2023 3:24 PM CST I have faxed [facility] HIM for colonoscopy report TAL PROJECT ENGINEER documented in this encounter Plan of Treatment Upcoming Encounters Date Type Department Care Team (Late st Contact Info) Description 07/11/2024 8:20 AM CAPITAL PROJECT ENGINEER Office Visit [facility] Family & Internal Medicine - [place] [id number] [place] [address] Jayson Ibarra DO [address] [place] [address] documented as of this encounter Visit Diagnoses Not on filedocumented in this encounter Care Teams Ladies Suit Operator Relationship Specialty Start Date End Date Jayson Ibarra DO [address] [place] [address] PCP - General FAMILY PRACTICE 05/17/23 documented as of this encounter
--- OUTSIDE RECORDS SUMMARY | 2024-07-10 19:58 | XMS_ITS | Encounter Summary ---
Author Organization [facility] Address [address] [place] [address]. [place] [address] [place] [address] Care Team Providers Care Child Care Leader Name Role Phone Jayson Ibarra DO Primary Care Provider + Encounter Details Date Type Department Care Team (Latest Contact Info) Description 12/29/2023 Travel Social History Tobacco Use Types Packs/Day Years Used Date Smoking Tobacco: Former Cigarettes 1 10 973 1982 Passive Smoke Exposure: Never Smokeless [...] st Contact Info) Description 07/11/2024 8:20 AM DRAMATIC CRITIC Office Visit [facility] Medical [facility] Family & Internal Medicine [facility] [address] [place] [address] Jayson Ibarra DO [address] [place] [address] documented as of this encounter Visit Diagnoses Not on filedocumented in this encounter Care Teams Child Care Leader Relationship Specialty Start Date End Date Jayson Ibarra DO [address] [place] [address] PCP - General FAMILY PRACTICE 05/17/23 documented as of this encounter
--- OUTSIDE RECORDS SUMMARY | 2024-07-10 19:59 | XMS_ITS | Clinical Summary ---
Author Organization [facility] [address] Address [address] [place] [address] Care Team Providers Care Hand Roller Name Role Phone Jayson Ibarra Primary Care Provide r Allergies Active Allergy Reactions Criticality Noted Date Comments Sulfa (Sulfonamide Antibiotics) Rash Medium Medications tamsulosin (FLOMAX) 0.4 mg extended release capsule 1 capsule (0.4 mg total) daily 3 9 Active simvastatin (ZOCOR) 20 mg tablet 1 tablet (20 mg total) nightly 9 Active finasteride (PROSCAR) 5 mg tablet 1 tablet (5 mg total) daily 3 9 Active cholecalciferol (VITAMIN D-3) 1000 unit tablet Take 1 tablet (1,000 Units total) by mouth daily Active albuterol HFA (PROVENTIL HFA,VENTOLIN HFA,PROAIR HFA) 90 mcg/actuation inhaler as needed 0 Active aspirin 81 mg enteric coated tablet Take 1 tablet (81 mg total) by mouth daily Active fluticasone (VERAMYST) 27.5 mcg/actuation nasal sprayIndications :Allergic Rhinitis Administer 2 sprays into each nostril once daily Active fluticasone propionate (FLONASE) 50 mcg/actuation nasal spray SHAKE LIQUID AND USE 2 SPRAYS IN EACH NOSTRIL ONCE DAILY. 3 Active benzonatate (TESSALON) 200 mg capsuleIndicatio ns:COVID-19 Take 1 capsule (200 mg total) by mouth 3 (three) times a day as needed for cough 30 capsule 3 Active dapagliflozin propanediol (FARXIGA) 5 mg tablet Take 1 tablet (5 mg total) by mouth daily Active lisinopriL (PRINIVIL,ZESTRI L) 10 mg tablet Take 1 tablet (10 mg total) by mouth daily as needed Active Active Problems Problem Noted Date Diagnosed Date Sensation of fullness in both ears 04/28/2023 Assessment & Plan (04/28/2023 9:56 AM CDT): His ear exam is essentially normal. I do not find any significant amount of wax accumulation or other problems. I talked with him about doing a hearing test but he declined for now indicating that he does not really notice much of a problem. He will follow-up if he has concerns about that however. Second degree AV block, Mobitz type II 9 Visit for wound check 12/02/2018 Cardiac pacemaker in situ 11/30/2018 Overview (11/30/2018): [employer]ik Dual Pacemaker. Dx; Second Degree AVB. DOI 11/26/2018-Symone. Bi[employer]ronik remote monitoring, office checks Q1 yr. Impacted cerumen 12/25/2014 Overview (10/08/2016): Cerumen impaction Left bundle branch block (LBBB) 08/06/2014 Encounters Date Type Department Care Team Description 07/06/2024 Orders Only [facility] Cardiology [address] [place] [phone] Ruben Ashby MD Cardiac pacemaker in situ (Primary Dx); Second degree AV block, Mobitz type II 06/27/2024 7:00 AM PRACTICING DERMATOLOGIST Ancillary Procedure [facility] Cardiology [address] [place] [phone] Second degree AV block, Mobitz type II 06/12/2024 10:30 AM PRACTICING DERMATOLOGIST Office Visit [facility] Cardiology at [address] [place] [address] Ruben Ashby MD Second degree AV block, Mobitz type II (Primary Dx); Cardiac pacemaker in situ; Lipid screening from Last 3 Months Surgical History Surgery Date Site/Laterality Comments VASECTOMY 07/05/1985 - 07/04/1986 Medical History Medical History Date Comments Kidney disorder Disorder of kidn ey Disorder of liver Liver disorder s Bundle branch block Heart block bundle branch Infectious viral hepatitis Treated over 20 yr ag o Hypertension Family History Medical History Relation Name Comments Heart attack Father Giuseppe [place]re Heart disease Father Giuseppe [place]re Relation Name Status Comments Father Giuseppe [place]re Social History Tobacco Use Types Packs/Day Years Used Date Smoking Tobacco: Former Cigarettes Q uit: 07/05/1982 Smokeless Tobacco: Never Tobacco Cessation:Counseling Given: Not Answered Comments:QUITE 35 YEARS AGO Alcohol Use Standard Drinks/Week Comments No 0 (1 standard drink = 0.6 oz pur e alcohol) Sex and Gender Information Value Date Recorded Sex Assigned at Not on file Legal Sex Male 10:31 PM PRACTICING DERMATOLOGIST Gender Identity Not on file Sexual Orientation Not on file Obstetrics History Last Filed Vital Signs Vital Sign Reading Time Taken Comments Blood Pressure 122/70 06/12/2024 10:07 AM PRACTICING DERMATOLOGIST Pulse 70 06/12/2024 10:07 AM PRACTICING DERMATOLOGIST Temperature 38.1 ??C (100.5 ??F) 03/16/2023 9:44 AM C DT Respiratory Rate 18 04/28/2023 9:24 AM CDT Oxygen Saturation 99% 06/12/2024 10:07 AM PRACTICING DERMATOLOGIST Inhaled Oxygen Concentration - - Weight 78 kg (172 lb) 06/12/2024 10:07 AM PRACTICING DERMATOLOGIST Height 177.8 cm (5' 10 ) 06/12/2024 10:07 AM PRACTICING DERMATOLOGIST Body Mass Index 24.68 06/12/2024 10:07 AM PRACTICING DERMATOLOGIST Plan of Treatment Health Maintenance Due Date Last Done Comments Colon Cancer Screening-Colonoscopy 1955 Depression Screening 1953 Fall Risk Assessment 1953 Hepatitis C Screening 1953 Hepatitis B Screening 1971 Abdominal Aortic Aneurysm (A AA) Screen 2018 Well Visit 65+ 2018 DTaP/Tdap/Td Vaccine (2 - Td or Tdap) 05/07/2022 05/07/2012 Zoster Vaccine (2 of 2) 12/18/2023 10/23/2023 Covid-19 Vaccine (2023-2 5 season) 2024 03/29/2021, 08/25/2020, 08/01/2020 Influenza Vaccine (#1) 2024 , 02/16/2020, 04/20/2018, Additional history exists Pneumococcal vaccine 65+ Completed 05/18/2021, 05/05 Procedures Procedure Name Priority Date/Time Associated Diagnosis Comments POCT LIPID PANEL Routine 06/12/2024 11:0 3 AM PRACTICING DERMATOLOGIST Lipid screening from Last 3 Months Results * POCT lipid panel (06/12/2024 11:03 AM PRACTICING DERMATOLOGIST) Cholesterol, POC 108 mg/dL HDL, POC 38 mg/dL Triglycerides, POC 78 mg/dL LDL Cholesterol POC 54 mg/dL Chol/HDL Ratio, POC 2.8 Non-HDL Cholesterol, POC 69 mg/dL Cholesterol Total, POC 108 mg/dL Capillary blood 06/12/2024 1 1:03 AM PRACTICING DERMATOLOGIST us Ruben Ashby MD POINT OF CARE TEST ORDER SEUN Final Result from Last 3 Months Insurance MEDICARE [facility] MEDICARE [facility] MEDICARE [place] [address] Care Teams Hand Roller Relationship Specialty Start Date End Date Jayson Ibarra DO [address] [place] [address] PCP - General Family Medicine 03/22/24
--- OUTSIDE RECORDS SUMMARY | 2024-07-10 20:00 | XMS_ITS | Encounter Summary ---
Author Organization [facility] Address [address] [facility] [address] [place] [address] Care Team Providers Care Pipelines Laborer Name Role Phone Real Gao MD Primary Care Provider + Reason for Visit * Cardiology (Routine) - Closed Specialty Diagnoses / Procedures Referred By Adelaida kamara Referred To Contact Diagnoses Second degree AV block Procedures DEVICE CHECK - REMOTE Ruben Ashby MD [address] [address] Phone: tel: fax: [facility] Referral ID Status Reason Start Date Expiration Date Visits Re quested Visits Authorized [id number] Closed 2021 06/12/2022 1 1 Encounter Details Date Type Department Care Team (Latest Contact Info) Description 02/20/2022 9:00 AM CDT Ancillary Procedure [facility] Medical [facility] Cardiology [address] [phone] Second degree AV block; Cardiac pacemaker in situ Social History Tobacco Use Types Packs/Day Years Used Date Smoking Tobacco: Former Smokeless Tobacco: Never Comments:QUITE 35 YEARS AGO Alcohol Use Standard Drinks/Week Comments No 0 (1 standard drink = 0.6 oz pur e alcohol) Sex and Gender Information Value Date Recorded Sex Assigned at Not on file Legal Sex Male 10:31 PM WEAVER HAND Gender Identity Not on file Sexual Orientation Not on file documented as of this encounter Plan of Treatment Not on file documented as of this encounter Procedures Procedure Name Priority Date/Time Associated Diagnosis Comments DEVICE CHECK - REMOTE Routine 02/20/2022 8:36 AM CDT Second degree AV block documented in this encounter Results * DEVICE CHECK - REMOTE (02/20/2022 8:36 AM CDT) Anatomical Region Laterality Modality Other Narrative 03/06/2022 3:34 PM CDT Backup [employer] Dual Pacemaker. Dx; Second Degree AVB. DOI 11/26/2018-Symone. Backup [employer] remote monitoring, office checks Q1 yr. Office pacemaker interrogation performed by [employer] company event marketing representative. Battery function-Ok, 75% remaining battery to CECILLE. AP-13%, SUIT MAKER-100%. Appropriate lead measurements. See scanned report. [employer] remote f/u 05/26/2022. [03/05/2022 3:32:38 PM - PRISCA ARITA] us Ruben Ashby MD [facility] CARDIAC SERVICES PROC EDURES Final Result documented in this encounter Visit Diagnoses Diagnosis Second degree AV block Other second degree atrioventricular block Cardiac pacemaker in situ documented in this encounter Care Teams Pipelines Laborer Relationship Specialty [place] [id number] [facility] [place] [address] PCP - General 12/25/14 03/21/24 documented as of this encounter
--- OUTSIDE RECORDS SUMMARY | 2024-07-10 20:00 | XMS_ITS | Encounter Summary ---
Author Organization [facility] Address [address] [place] [address] Care Team Providers Care Chip Washer Name Role Phone Real Gao MD Primary Care Provider + Reason for Referral * Cardiology (Routine) - Authorized Specialty Diagnoses / Procedures Referred By Contac t Referred To Contact Cardiology Diagnoses Second degree AV block, Mobitz type II Procedures DEVICE CHECK - IN OFFICE Ruben Ashby MD [address] [place] [address] Phone: tel: fax: [facility] Referral ID Status Reason Start Date Expiration Date V isits Requested Visits Authorized [id number] Authorized 03/07/2024 04/06/2025 1 1 * Cardiology (Routine) - Authorized Specialty Diagnoses / Procedures Referred By Contac t Referred To Contact Cardiology Diagnoses Second degree AV block, Mobitz type II Procedures DEVICE CHECK - REMOTE Ruben Ashby MD [address] [place] [address] Phone: tel: fax: [facility] Referral ID Status Reason Start Date Expiration Date V isits Requested Visits Authorized [id number] Authorized 03/07/2024 09/04/2025 1 1 * Cardiology (Routine) - Authorized Specialty Diagnoses / Procedures Referred By Contac t Referred To Contact Cardiology Diagnoses Second degree AV block, Mobitz type II Procedures DEVICE CHECK - REMOTE Ruben Ashby MD [address] [place] [address] Phone: tel: fax: [facility] Referral ID Status Reason Start Date Expiration Date V isits Requested Visits Authorized [id number] Authorized 03/07/2024 09/04/2025 1 1 * Cardiology (Routine) - Authorized Specialty Diagnoses / Procedures Referred By Contac t Referred To Contact Cardiology Diagnoses Second degree AV block, Mobitz type II Procedures DEVICE CHECK - REMOTE Ruben Ashby MD [address] [facility] [address] [place] [address] Phone: tel: fax: [facility] Referral ID Status Reason Start Date Expiration Date V isits Requested Visits Authorized [id number] Authorized 03/07/2024 09/04/2025 1 1 Encounter Details Date Type Department Care Team (Late st Contact Info) Description 03/07/2024 Orders Only [facility] Cardiology [address] [place] [phone] Ruben Ashby MD [address] [place] [address] Second degree AV block, Mobitz type II (Primary Dx) Social History Tobacco Use Types Packs/Day Years Used Date Smoking Tobacco: Former Cigarettes Q uit: 07/05/1982 Smokeless Tobacco: Never Comments:QUITE 35 YEARS AGO Alcohol Use Standard Drinks/Week Comments No 0 (1 standard drink = 0.6 oz pur e alcohol) Sex and Gender Information Value Date Recorded Sex Assigned at Not on file Legal Sex Male 10:31 PM DIRECTOR OF TRAUMA Gender Identity Not on file Sexual Orientation Not on file documented as of this encounter Plan of Treatment Scheduled Orders Name Type Priority Associated Diagnoses Orde r Schedule DEVICE CHECK - REMOTE Cardiac Services Routine Second degree AV block, Mobitz type II Expected: 06/06/2024, Expires: 07/04/2030 DEVICE CHECK - REMOTE Cardiac Services Routine Second degree AV block, Mobitz type II Expected: 09/05/2024, Expires: 07/04/2030 DEVICE CHECK - REMOTE Cardiac Services Routine Second degree AV block, Mobitz type II Expected: 12/05/2024, Expires: 07/04/2030 DEVICE CHECK - IN OFFICE Cardiac Services Routine Second degree AV block, Mobitz type II Expected: 03/23/2025, Expires: 07/04/2032 documented as of this encounter Visit Diagnoses Diagnosis Second degree AV block, Mobitz type II- Primary Mobitz (type) II atrioventricular block documented in this encounter Care Teams Chip Washer Relationship Specialty [place] [id number] [place] [address] PCP - General 12/25/14 03/21/24 documented as of this encounter
--- OUTSIDE RECORDS SUMMARY | 2024-07-10 20:00 | XMS_ITS | Encounter Summary ---
Author Organization [facility] Address [address] [address] Care Team Providers Care Ruby Software Developer Name Role Phone Real Gao MD Primary Care Provider + Reason for Referral * Cardiology (Routine) - Closed Specialty Diagnoses / Procedures Referred By Contac t Referred To Contact Diagnoses Second degree AV block Procedures DEVICE CHECK - IN OFFICE Ruben Ashby MD [address] [place] [address] Phone: tel: fax: [facility] Referral ID Status Reason Start Date Expiration Date Visits Re quested Visits Authorized [id number] Closed 05/26/2022 03/28/2024 1 1 SPLICER * Cardiology (Routine) - Closed Specialty Diagnoses / Procedures Referred By Contac t Referred To Contact Diagnoses Second degree AV block Procedures DEVICE CHECK - REMOTE Ruben Ashby MD [address] [place] [id number] Phone: tel: fax: [facility] Referral ID Status Reason Start Date Expiration Date Visits Re quested Visits Authorized [id number] Closed 05/26/2022 11/24/2023 1 1 SPLICER * Cardiology (Routine) - Closed Specialty Diagnoses / Procedures Referred By Contac t Referred To Contact Diagnoses Second degree AV block Procedures DEVICE CHECK - REMOTE Ruben Ashby MD [address] [place] [address] Phone: tel: fax: [facility] Referral ID Status Reason Start Date Expiration Date Visits Re quested Visits Authorized [id number] Closed 05/26/2022 11/24/2023 1 1 SPLICER * Cardiology (Routine) - Closed Specialty Diagnoses / Procedures Referred By Contac t Referred To Contact Diagnoses Second degree AV block Procedures DEVICE CHECK - REMOTE Ruben Ashby MD [address] [place] [address] Phone: tel: fax: [facility] Referral ID Status Reason Start Date Expiration Date Visits Re quested Visits Authorized [id number] Closed 05/26/2022 11/24/2023 1 1 SPLICER Encounter Details Date Type Department Care Team (Late st Contact Info) Description 05/26/2022 Orders Only [facility] Cardiology [address] [place] [phone] Ruben Ashby MD [address] [place] [address] Second degree AV block (Primary Dx) Social History Tobacco Use Types Packs/Day Years Used Date Smoking Tobacco: Former Cigarettes Smokeless Tobacco: Never Comments:QUITE 35 YEARS AGO Alcohol Use Standard Drinks/Week Comments No 0 (1 standard drink = 0.6 oz pur e alcohol) Sex and Gender Information Value Date Recorded Sex Assigned at Not on file Legal Sex Male 10:31 PM BAND SPLICER Gender Identity Not on file Sexual Orientation Not on file documented as of this encounter Plan of Treatment Not on file documented as of this encounter Results * DEVICE CHECK - IN OFFICE (03/22/2024 2:08 PM CDT) Anatomical Region Laterality Modality Other Narrative 04/17/2024 7:47 AM CDT Biotronik Dual Pacemaker. Dx; Second Degree AVB. DOI 11/26/2018-Symone. Biotronik remote monitoring. Supervising MD: Dr Ornelas. Office DDD Pacemaker evaluation demonstrated appropriate device function. Left pectoral incision well healed without signs of infection noted. Battery function:Ok, 5.0 years 8 months remaining battery life to CECILLE. Appropriate lead measurements noted. Presenting rhythm- MAINTENANCE LEADER. ??Underlying rhythm- complete heart block. ??No ventricular escape DDI 30 bpm. AP- 12 %, MAINTENANCE LEADER- 100 %. ?? 2 Atrial high rate episodes noted, iegm's Atach, 28 second durations. No Ventricular high rate episodes noted. Medications; aspirin 81 mg. No programming changes made to device settings. See scanned report. Office device f/u 06/20/2025. ?? Biotronik remote f/u 06/27/2024. Karolina Butts RN Ruben Ashby MD CV CARDIAC SERVICES PROC EDURES Final Result * DEVICE CHECK - REMOTE (06/04/2023 9:41 AM BAND SPLICER) Anatomical Region Laterality Modality Other Narrative 07/21/2023 8:37 AM BAND SPLICER Biotronik Dual Pacemaker. Dx; Second Degree AVB. DOI 11/26/2018-Symone. Biotronik remote monitoring, office checks Q1 yr. Routine DDD Pacemaker remote. Normal device function. Battery function-Ok, 65% remaining battery life to CECILLE. Appropriate lead measurements noted. Presenting fyxfcn-MC-RP. AP-11%, MAINTENANCE LEADER-100%. 1 atrial high rate episode noted, 28 second duration, iegm Atach. ?? No ventricular high rate episodes noted Medications; Zocor, ASA. See scanned report. Biotronik remote f/u 09/08/2023. Karolina Butts RN Ruben Ashby MD CV CARDIAC SERVICES PROC EDURES Final Result * DEVICE CHECK - REMOTE (11/24/2022 1:37 PM CDT) Anatomical Region Laterality Modality Other Narrative 03/25/2023 4:51 PM CDT Table formatting from the original result was not included. PM CHECK (REMOTE) Patient ID: Jose Alexandre is a 67 y.o. male This patient received a Biotronik Pacemaker. ??They had a routine remote transmission on 11/24/2022. Device implant indications: ??Second-degree AV block ?? Interrogation of the patient's device demonstrates the following: Presenting EGM: ??A sensed V paced @ 65 bpm Original Device Settings Right Atrium Right Ventricle Sensitivity (mV) Auto mV Auto mV Pacing Outputs 2.1 V @ 0.4 ms 2.0 V @ 0.4 ms Testing Measurements Right Atrium Right Ventricle Sensitivity (mV) 5.9 mV 12.1 mV Impedence (Ohms) 644 ohms 683 ohms Pace Threshold Not done V @ ??ms 0.8 V @ 0.4 ms Pacing % 9 % 100 % Battery Status: ??The battery is at 65% of projected longevity Episodes last 90 days/Comments: AF Dequincy 0 %, longest duration 0. NORMAL DEVICE FUNCTION PROGRAMMED MEDICATIONS: Anti-coagulant(s): ??Aspirin 81 mg daily Anti-arrhythmic(s): ??None PLAN: 1) normal Biotronik Pacemaker evaluation 2) Biotronik remote transmission scheduled in 3 months. 3) Programming appropriate for device measurements Chucky Enriquez RN Ruben Ashby MD CV CARDIAC SERVICES PROC EDURES Final Result * DEVICE CHECK - REMOTE (08/25/2022 3:54 PM BAND SPLICER) Anatomical Region Laterality Modality Other Narrative 11/10/2022 12:57 PM CDT Biotronik Dual Pacemaker. Dx; Second Degree AVB. DOI 11/26/2018-Symone. Biotronik remote monitoring, office checks Q1 yr. Routine Pacemaker remote. Normal device function. Battery function-Ok, 70% remaining battery life to CECILLE. Appropriate lead measurements noted. Presenting rhythm-ASVP. AP-7%, MAINTENANCE LEADER-100%. 1 atrial high rate episode noted, 28 second duration, iegm Atach. ?? No ventricular high rate episodes noted Medications; Lisinopril, Zocor, ASA. See scanned report. Biotronik remote f/u 11/24/2022. Karolina Butts RN Ruben Ashby MD CV CARDIAC SERVICES PROC EDURES Final Result documented in this encounter Visit Diagnoses Diagnosis Second degree AV block- Primary Other second degree atrioventricular block Cardiac pacemaker in situ [Z95.0 (ICD-10-CM)]- Primary Cardiac pacemaker in situ Second degree AV block Other second degree atrioventricular block Second degree AV block Other second degree atrioventricular block Cardiac pacemaker in situ [Z95.0]- Primary Cardiac pacemaker in situ Second degree AV block Other second degree atrioventricular block Cardiac pacemaker in situ [Z95.0]- Primary Cardiac pacemaker in situ Second degree AV block Other second degree atrioventricular block documented in this encounter Care Teams Ruby Software Developer Relationship Specialty [place] [id number] [address] PCP - General 12/25/14 03/21/24 documented as of this encounter
--- OUTSIDE RECORDS SUMMARY | 2024-07-10 20:00 | XMS_ITS | Encounter Summary ---
Author Organization [facility] Address [address] [address] Care Team Providers Care Airway Traffic Controller Name Role Phone Real Gao MD Primary Care Provider + Reason for Visit * Cardiology (Routine) - Closed Specialty Diagnoses / Procedures Referred By Adelaida kamara Referred To Contact Diagnoses Second degree AV block Procedures DEVICE CHECK - REMOTE Ruben Ashby MD [address] [address] Phone: tel: fax: [facility] Referral ID Status Reason Start Date Expiration Date Visits Re quested Visits Authorized [id number] Closed 05/26/2022 11/24/2023 1 1 Encounter Details Date Type Department Care Team (Latest Contact Info) Description 08/25/2022 9:15 AM LINTER DRIER OPERATOR Ancillary Procedure [facility] Cardiology [address] [facility] [address] [place] [phone] Cardiac pacemaker in situ [Z95.0 (ICD-10-CM)] (Primary Dx); Second degree AV block Social History Tobacco Use Types Packs/Day Years Used Date Smoking Tobacco: Former Cigarettes Smokeless Tobacco: Never Comments:QUITE 35 YEARS AGO Alcohol Use Standard Drinks/Week Comments No 0 (1 standard drink = 0.6 oz pur e alcohol) Sex and Gender Information Value Date Recorded Sex Assigned at Not on file Legal Sex Male 10:31 PM LINTER DRIER OPERATOR Gender Identity Not on file Sexual Orientation Not on file documented as of this encounter Plan of Treatment Not on file documented as of this encounter Procedures Procedure Name Priority Date/Time Associated Diagnosis Comments DEVICE CHECK - REMOTE Routine 08/25/2022 3:54 PM LINTER DRIER OPERATOR Second degree AV block documented in this encounter Results * DEVICE CHECK - REMOTE (08/25/2022 3:54 PM LINTER DRIER OPERATOR) Anatomical Region Laterality Modality Other Narrative 11/10/2022 12:57 PM CDT Biotronik Dual Pacemaker. Dx; Second Degree AVB. DOI 11/26/2018-Symone. Biotronik remote monitoring, office checks Q1 yr. Routine Pacemaker remote. Normal device function. Battery function-Ok, 70% remaining battery life to CECILLE. Appropriate lead measurements noted. Presenting rhythm-ASVP. AP-7%, GOLD LEAF LAYER-100%. 1 atrial high rate episode noted, 28 second duration, iegm Atach. ?? No ventricular high rate episodes noted Medications; Lisinopril, Zocor, ASA. See scanned report. Biotronik remote f/u 11/24/2022. Karolina uBtts, RN us Ruben Ashby MD CV CARDIAC SERVICES PROC EDURES Final Result documented in this encounter Visit Diagnoses Diagnosis Cardiac pacemaker in situ [Z95.0 (ICD-10-CM)]- Primary Cardiac pacemaker in situ Second degree AV block Other second degree atrioventricular block documented in this encounter Care Teams Airway Traffic Controller Relationship Specialty [place] [address] [facility] [place] [address] PCP - General 12/25/14 03/21/24 documented as of this encounter
--- OUTSIDE RECORDS SUMMARY | 2024-07-10 20:00 | XMS_ITS | Encounter Summary ---
Author Organization [facility] Address [address] [address] Care Team Providers Care Golf Ball Cover Treater Name Role Phone Real Gao MD Primary Care Provider + Reason for Visit * Reason Comments Covid Travel swab Encounter Details Date Type Department Care Team (Latest Contact Info) Description 07/03/2021 3:30 PM INSIDE SOLAR SALES CONSULTANT Clinical Support [facility] [address] [place] [phone] COVID-19 ruled out (Primary Dx) Social History Tobacco Use Types Packs/Day Years Used Date Smoking Tobacco: Former Smokeless Tobacco: Never Comments:QUITE 35 YEARS AGO Alcohol Use Standard Drinks/Week Comments No 0 (1 standard drink = 0.6 oz pur e alcohol) Sex and Gender Information Value Date Recorded Sex Assigned at Not on file Legal Sex Male 10:31 PM INSIDE SOLAR SALES CONSULTANT Gender Identity Not on file Sexual Orientation Not on file documented as of this encounter Progress Notes * Anne Ruelas MA - 07/03/2021 3:30 PM CST Patient presents to clinic requesting COVID swab. Denies the following: GI symptoms: nausea, vomiting, diarrhea, abdominal pain Respiratory symptoms: shortness of breath, chest discomfort, cough, rhinorrhea, congestion, sore throat Generalized symptoms of infection: fever, excessive fatigue, generalized malaise, headache, ear ache Verbalizes understanding that if symptoms develop, patient should return to clinic for further workup and/or treatment of symptoms. DE SOLAR SALES CONSULTANT documented in this encounter Plan of Treatment Not on file documented as of this encounter Results * COVID-19 Coronavirus RNA Nasopharyngeal (07/03/2021 2:54 PM INSIDE SOLAR SALES CONSULTANT) COVID-19 RNA Not Detected LIZETTE VALE Comment: Interpretive Data Synonyms for this test include: PCR and NAAT . ??Testing performed by the [facility] Infectious Disease [facility]. The 2018-Novel Coronavirus Assay (COVID-19) Real Time RT-PCR assay is for in vitro diagnostic use under FDA emergency use authorization only. A negative RT-PCR result does not preclude infection with COVID-19 and should not be used as the sole basis for treatment or other patient management decisions. ??Additional sample types have been validated according to CLIA regulations. ?? Current Interpretive Data was last revised on August 08, 2020. Testing performed by: [facility], [address] [place] [address]., [id number] First COVID-19 test? No CERNER CH Comment:Testing performed by : [facility], [address] [place] [address], [id number] Employeed in healthcare? No CERNER CH Comment:Testing performed by : [facility], [address] [place]., [address] Group care resident? No CERNER CH Comment:Testing performed by : [facility], [address] [place] [address], [id number] Hospitalized? No CERNER CH Comment:Testing performed by : [facility], [address] [facility], [address] Is patient in ICU? No CERNER CH Comment:Testing performed by : [address], [address] Symptomatic as defined by CDC? No CERNER CH Comment:Testing performed by : [facility], [address] [place] [address], [id number] Nasopharyngeal 07/03/2021 2: 54 PM INSIDE SOLAR SALES CONSULTANT 07/04/2021 11:39 AM INSIDE SOLAR SALES CONSULTANT Narrative LIZETTE VALE - 07/04/2021 8:20 PM INSIDE SOLAR SALES CONSULTANT What is the reason for testing?->Requirement for travel asymptomatic (batch) Amanda Kan PHOTOSTAT OPERATOR HELPER LAB MICROBIOLOGY - GE NERAL ORDERABLES Final Result SRIDHARSANDRINE [id number] [address] [place] [address] documented in this encounter Visit Diagnoses Diagnosis COVID-19 ruled out- Primary COVID-19 ruled out documented in this encounter Care Teams Golf Ball Cover Treater Relationship Specialty [place] [address] [facility] [place] [address] PCP - General 12/25/14 03/21/24 documented as of this encounter
--- OUTSIDE RECORDS SUMMARY | 2024-07-10 20:00 | XMS_ITS | Encounter Summary ---
Author Organization [facility] Address [address] [address] Care Team Providers Care Gum Dipper Name Role Phone Real Gao MD Primary Care Provider + Reason for Visit * (Routine) - Closed Specialty Diagnoses / Procedures Referred By Adelaida kamara Referred To Contact Diagnoses Second degree AV block Procedures DEVICE CHECK - REMOTE Ruben Ashby MD [address] [address] Phone: tel: fax: [facility] Referral ID Status Reason Start Date Expiration Date Visits Re quested Visits Authorized [id number] Closed 04/23/2020 05/23/2021 1 1 Encounter Details Date Type Department Care Team (Latest Contact Info) Description 10/22/2020 8:15 AM CDT Ancillary Procedure [facility] Cardiology [facility] [address] [place] [phone] Second degree AV block; Cardiac pacemaker in situ Social History Tobacco Use Types Packs/Day Years Used Date Smoking Tobacco: Never Smokeless Tobacco: Never Comments:QUITE 35 YEARS AGO Alcohol Use Standard Drinks/Week Comments No 0 (1 standard drink = 0.6 oz pur e alcohol) Sex and Gender Information Value Date Recorded Sex Assigned at Not on file Legal Sex Male 10:31 PM PLYWOOD STOCK GRADER Gender Identity Not on file Sexual Orientation Not on file documented as of this encounter Progress Notes * Karolina Butts RN - 10/22/2020 8:15 AM CDT Biotronik Dual Pacemaker. Dx; Second Degree AVB. DOI 11/26/2018-Symone. Biotronik remote monitoring, office checks Q1 yr. Routine Pacemaker remote. Normal device function. Battery function-ok, 85% estimated remaining longevity. Appropriate lead measurements. Presenting rhythm-ASVP. AP-12%, TECHNOLOGY DIRECTOR-100%. No atrial high rate episodes noted. No ventricular high rate episodes noted Medications; Lisinopril, Zocor, ASA. See scanned report. Office pacemaker f/u 02/05/2021. documented in this encounter Plan of Treatment Not on file documented as of this encounter Procedures Procedure Name Priority Date/Time Associated Diagnosis Comments DEVICE CHECK - REMOTE Routine 10/22/2020 10:31 AM CDT Second degree AV block documented in this encounter Results * DEVICE CHECK - REMOTE (10/22/2020 10:31 AM CDT) Anatomical Region Laterality Modality Other Narrative 12/19/2020 12:19 PM CDT Biotronik Dual Pacemaker. Dx; Second Degree AVB. DOI 11/26/2018-Symone. Biotronik remote monitoring, office checks Q1 yr. Routine Pacemaker remote. Normal device function. Battery function-ok, 85% estimated remaining longevity. Appropriate lead measurements. Presenting rhythm-ASVP. AP-12%, TECHNOLOGY DIRECTOR-100%. No atrial high rate episodes noted. No ventricular high rate episodes noted Medications; Lisinopril, Zocor, ASA. See scanned report. Office pacemaker f/u 02/05/2021. Ruben Ashby MD CV CARDIAC SERVICES PROC EDURES Final Result documented in this encounter Visit Diagnoses Diagnosis Second degree AV block Other second degree atrioventricular block Cardiac pacemaker in situ documented in this encounter Care Teams Gum Dipper Relationship Specialty [place] [address] [place] [address] PCP - General 12/25/14 03/21/24 documented as of this encounter
--- OUTSIDE RECORDS SUMMARY | 2024-07-10 20:00 | XMS_ITS | Encounter Summary ---
Author Organization [facility] Medical Group Address [address] [address] Care Team Providers Care Cosmetology Educator Name Role Phone Real Gao MD Primary Care Provider + Reason for Visit * Reason Comments COVID-19 EVALUATION Pt c/o congestion, h eadaches, fatigue, body aches, fever, coughing,.Pt tested positive for covid at home on 830 this morning. S/s started Wednesday night. Pt has self medicated with tylenol (last dose 3am). Pt requested requesting paxlovid. Encounter Details Date Type Department Care Team (Late st Contact Info) Description 03/16/2023 10:00 AM CDT Office Visit [facility] Out[facility] [address] [id number] Melinda Colon NP [address] [place] [address] Positive self-administered antigen test for COVID-19 (Primary Dx); COVID-19 Social History Tobacco Use Types Packs/Day Years Used Date Smoking Tobacco: Former Cigarettes Smokeless Tobacco: Never Comments:QUITE 35 YEARS AGO Alcohol Use Standard Drinks/Week Comments No 0 (1 standard drink = 0.6 oz pur e alcohol) Sex and Gender Information Value Date Recorded Sex Assigned at Not on file 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 Gender Identity Not on file Sexual Orientation Not on file documented as of this encounter Last Filed Vital Signs Vital Sign Reading Time Taken Comments Blood Pressure 152/66 03/16/2023 9:44 AM CDT Pulse 82 03/16/2023 9:44 AM CDT Temperature 38.1 ??C (100.5 ??F) 03/16/2023 9:44 AM C DT Respiratory Rate 18 03/16/2023 9:44 AM CDT Oxygen Saturation 96% 03/16/2023 9:44 AM CDT Inhaled Oxygen Concentration - - Weight 84.8 kg (187 lb) 03/16/2023 9:44 AM CDT Height 177.8 cm (5' 10 ) 03/16/2023 9:44 AM CDT Body Mass Index 26.83 03/16/2023 9:44 AM CDT documented in this encounter Patient Instructions * Patient Instructions* Melinda Colon, CONTACT LENS FITTER - 03/16/2023 10:00 AM CDT The rapid COVID test performed today in clinic was positive. The following are recommendations for treating the symptoms related to COVID19. What is the difference between Influenza (Flu) and COVID-19? Influenza (Flu) and COVID-19 are both contagious respiratory illnesses, but they are caused by different viruses. COVID-19 is caused by infection with a new coronavirus (called SARS-CoV-2) and flu is caused by infection with influenza viruses. There are some madrid differences between flu and COVID-19. COVID-19 seems to spread more easily than flu and causes more serious illnesses in some people. It can also take longer before people show symptoms and people can be contagious for longer. The best way to prevent infection is to avoid being exposed to the virus. Because some of the symptoms of flu and COVID-19 are similar, it may be hard to tell the difference between them based on symptoms alone, and testing may be needed to help confirm a diagnosis.While more is learned every day, there is still a lot that is unknown about COVID-19 and the virus that causes it. The [facility] Department will be reaching out to all patients who have a positive test for further discussion and monitoring. Continue to self isolate until at least 5 days have passed since symptom onset, your symptoms have improved, and you have been fever free without the use of fever reducing medications for at least 24 hours. The CDC recommends that after 5 days of isolation if you are fever free and symptoms have improved that you can come out of isolation but please continue to wear your mask. You may use acetaminophen and/or ibuprofen to control pain and fever. If you have chronic liver disease, have ever had a stomach ulcer or gastrointestinal bleeding talk with your healthcare provider before using these medicines. Aspirin should never be given to anyone under 18 years of age who is ill with a viral infection or fever. It may cause severe liver or brain damage. Your appetite may be poor, so a light diet is ok. Stay well hydrated by drinking 6 to 8 glasses of fluids per day (water, soft drinks, juices, tea, or soup). Extra fluids will help loosen secretions in the nose and lungs. Vmet-epu-hkoxkzj cold medicines will not shorten the length of time you???re sick, but they may be helpful for relieving the following symptoms: headache, cough, sore throat, and nasal and sinus congestion. If you take prescription medicines, ask your healthcare provider or pharmacist which vtac-cdy-zasqoha medicines are safe to use. (Note: DO NOT use decongestants if you have high blood pressure.) Steps to help prevent the spread of COVID-19 if you are sick If you are sick with COVID-19 or think you might have COVID-19, follow the steps below to care for yourself and to help protect other people in your home and community. Stay home except to get medical care Most people with COVID-19 have mild illness and are able to recover at home without medical care. Do not leave your home, except to get medical care. Do not visit public areas. Take care of yourself. Get rest and stay hydrated. Take ysrf-ops-cobqpvq medicines to help you feelbetter. Stay in touch with your doctor. Call before you get medical care. Be sure to get care if you have trouble breathing, or have any other emergency warning signs, or if you think it is an emergency. Avoid using public transportation, ride-sharing, or taxis. Monitor your symptoms Symptoms of COVID-19 include fever, cough, shortness of breath or difficulty breathing, fatigue, muscle or body aches, headache, new loss of taste or smell, sore throat, congestion, runny nose, nausea, vomiting, or diarrhea. When to Seek Medical Attention If you develop emergency warning signs for COVID-19 get medical attention immediately. Emergency warning signs include*: Trouble breathing Persistent pain or pressure in the chest New confusion or inability to arouse Bluish lips or face *This list is not all inclusive. Please consult your medical provider for any other symptoms that are severe or concerning. Call 911 if you have a medical emergency: If you have a medical emergency and need to call 911, notify the barrel lathe operator outside that you have or think you might have, COVID-19. If possible, put on a facemask before medical help arrives. Separate yourself from other people in your home, this is known as home isolation As much as possible, you should stay away from other people and pets in your home. You should stay in a specific ???sick room?? if possible. Use a separate bathroom, if available. If you need to be around other people or animals in or outside of the home, wear a mask For more information on sharing close living quarters with someone who is sick visit https://www.cdc .gov/coronavirus/2019-ncov/qxraz-vlqn-xnfdkn/otjnjv-ez-lodhw-quarters.html For more information on COVID-19 and pets visit https://www.cdc.gov/coronavirus/2019-ncov/faq.html Call ahead before visiting your doctor Many medical visits for routine care are being postponed or done by phone or telemedicine. If you have a medical appointment that cannot be postponed, call your doctor???s office, and tell them you have or may have COVID-19. This will help the office protect themselves and other patients. documented in this encounter Ordered Prescriptions Prescription Sig Dispense Quantity Refills Last Filled Start Date End Date benzonatate (TESSALON) 200 mg capsuleIndications :COVID-19 Take 1 capsule (200 mg total) by mouth 3 (three) times a day as needed for cough 30 capsule 03/16/2023 documented in this encounter Progress Notes * Melinda Colon NP - 03/16/2023 10:00 AM CDT Images from the original note were not included. Patient ID: Jose Aelxandre is a 67 y.o. male followed by Real Gao MD Chief Complaint Patient presents with COVID-19 EVALUATION Pt c/o congestion, headaches, fatigue, body aches, fever, coughing,. Pt tested positive for covid at home on 830 this morning. S/s started Wednesday night. Pt has self medicated with tylenol (last dose 3am). Pt requested requesting paxlovid. Patient presents to the clinic with reports of congestion, headaches, body aches, fatigue, fever, and coughing for 1 day. Patient reports that he tested positive for COVID on a at-home test. Patient denies chest pain, difficulty breathing, rash, vomiting, and diarrhea. He has taken tylenol for his symptoms. Patient here today requesting Paxlovid. Reports that his has covid. Review of Systems Constitutional: Positive for fatigue and fever. Negative for chills. HENT: Positive for congestion. Negative for ear pain, postnasal drip, rhinorrhea and sore throat. Respiratory: Positive for cough. Negative for chest tightness, shortness of breath and wheezing. Cardiovascular: Negative for chest pain. Gastrointestinal: Negative for diarrhea, nausea and vomiting. Musculoskeletal: Positive for myalgias. Neurological: Positive for headaches. Vitals: 03/16/23 0944 BP: 152/66 BP Location: Left arm Patient Position: Sitting Pulse: 82 Resp: 18 Temp: (!) 38.1 ??C (100.5 ??F) TempSrc: Oral SpO2: 96% Weight: 84.8 kg (187 lb) Height: 177.8 cm (5' 10 ) Recent Results (from the past 24 hour(s)) POC Influenza A/B, COVID-19 antigen Collection Time: 03/16/23 9:45 AM Result Value Ref Range Influenza A Ag, POC Negative Negative Influenza B Ag, POC Negative Negative COVID-19 Ag POC Positive (A) Presumptive Negative, Invalid Physical Exam Vitals reviewed. Constitutional: General: He is not in acute distress. Appearance: He is well-developed. He is not ill-appearing. HENT: Right Ear: Tympanic membrane, ear canal and external ear normal. Tympanic membrane is not injected,erythematous or bulging. Left Ear: Tympanic membrane, ear canal and external ear normal. Tympanic membrane is not injected, erythematous or bulging. Nose: Congestion and rhinorrhea present. Rhinorrhea is clear. Right Sinus: No maxillary sinus tenderness or frontal sinus tenderness. Left Sinus: No maxillary sinus tenderness or frontal sinus tenderness. Mouth/Throat: Lips: [place]. Mouth: Mucous membranes are moist. Pharynx: Uvula midline. No pharyngeal swelling, oropharyngeal exudate or posterior oropharyngeal erythema. Cardiovascular: Rate and Rhythm: Normal rate and regular rhythm. Pulmonary: Effort: Pulmonary effort is normal. No respiratory distress. Breath sounds: Normal breath sounds. No decreased breath sounds, wheezing or rhonchi. Comments: Cough observed Lymphadenopathy: Cervical: No cervical adenopathy. Skin: General: Skin is warm and dry. Neurological: Mental Status: He is alert and oriented to person, place, and time. Diagnoses and all orders for this visit: Positive self-administered antigen test for COVID-19 (Primary) - POC Influenza A/B, COVID-19 antigen COVID-19 - POC Influenza A/B, COVID-19 antigen - benzonatate (TESSALON) 200 mg capsule; Take 1 capsule (200 mg total) by mouth 3 (three) times a day as needed for cough Orders Placed This Encounter Procedures POC Influenza A/B, COVID-19 antigen Order Specific Question: Is the Patient experiencing symptoms consistent with COVID? Answer: Yes Order Specific Question: Date of Symptom Onset Answer: 03/14/2023 Assessment/Plan -covid positive -Per the [facility] Covid-19 Drug interactions website; patient's simvastatin and Tamsulosin both interact with Paxlovid. Patient will reach out to PCP and discuss if he can hold medications to take paxlovid as this clinic does not stop medications. -vitals stable, pt non toxic appearing, no respiratory distress, lungs CTA on exam, lungs 96% on RA. --Will treat supportively and with OTC meds (Flonase, Antihistamine, Sudafed,Tylenol, Motrin) -isolation precautions and ER precautions discussed Disposition Treatment plan including expectations, follow up, and return precautions discussed with patient/parent, verbalizes understanding. Medication dosage, use, and potential adverse reactions discussed with patient/parent. Advised to follow up with PCP if symptoms do not resolve as expected or sooner if condition worsens. Discussed Signs/symptoms warranting ER evaluation including worsening fever, increased shortness ofbreath, chest pain, severe N/V/D, or any other worrisome symptoms Patient and/or guardian was given an opportunity to ask questions, questions answered. Patient Education The rapid COVID test performed today in clinic was positive. The following are recommendations for treating the symptoms related to COVID19. What is the difference between Influenza (Flu) and COVID-19? Influenza (Flu) and COVID-19 are both contagious respiratory illnesses, but they are caused by different viruses. COVID-19 is caused by infection with a new coronavirus (called SARS-CoV-2) and flu is caused by infection with influenza viruses. There are some madrid differences between flu and COVID-19. COVID-19 seems to spread more easily than flu and causes more serious illnesses in some people. It can also take longer before people show symptoms and people can be contagious for longer. The best way to prevent infection is to avoid being exposed to the virus. Because some of the symptoms of flu and COVID-19 are similar, it may be hard to tell the difference between them based on symptoms alone, and testing may be needed to help confirm a diagnosis.While more is learned every day, there is still a lot that is unknown about COVID-19 and the virus that causes it. The [facility] Department will be reaching out to all patients who have a positive test for further discussion and monitoring. Continue to self isolate until at least 5 days have passed since symptom onset, your symptoms have improved, and you have been fever free without the use of fever reducing medications for at least 24 hours. The CDC recommends that after 5 days of isolation if you are fever free and symptoms have improved that you can come out of isolation but please continue to wear your mask. You may use acetaminophen and/or ibuprofen to control pain and fever. If you have chronic liver disease, have ever had a stomach ulcer or gastrointestinal bleeding talk with your healthcare provider before using these medicines. Aspirin should never be given to anyone under 18 years of age who is ill with a viral infection or fever. It may cause severe liver or brain damage. Your appetite may be poor, so a light diet is ok. Stay well hydrated by drinking 6 to 8 glasses of fluids per day (water, soft drinks, juices, tea, or soup). Extra fluids will help loosen secretions in the nose and lungs. Bkis-fve-dwdcxtc cold medicines will not shorten the length of time you???re sick, but they may be helpful for relieving the following symptoms: headache, cough, sore throat, and nasal and sinus congestion. If you take prescription medicines, ask your healthcare provider or pharmacist which pztl-xmt-wsmvqor medicines are safe to use. (Note: DO NOT use decongestants if you have high blood pressure.) Steps to help prevent the spread of COVID-19 if you are sick If you are sick with COVID-19 or think you might have COVID-19, follow the steps below to care for yourself and to help protect other people in your home and community. Stay home except to get medical care Most people with COVID-19 have mild illness and are able to recover at home without medical care. Do not leave your home, except to get medical care. Do not visit public areas. Take care of yourself. Get rest and stay hydrated. Take mddh-uqb-icwdmek medicines to help you feelbetter. Stay in touch with your doctor. Call before you get medical care. Be sure to get care if you have trouble breathing, or have any other emergency warning signs, or if you think it is an emergency. Avoid using public transportation, ride-sharing, or taxis. Monitor your symptoms Symptoms of COVID-19 include fever, cough, shortness of breath or difficulty breathing, fatigue, muscle or body aches, headache, new loss of taste or smell, sore throat, congestion, runny nose, nausea, vomiting, or diarrhea. When to Seek Medical Attention If you develop emergency warning signs for COVID-19 get medical attention immediately. Emergency warning signs include*: Trouble breathing Persistent pain or pressure in the chest New confusion or inability to arouse Bluish lips or face *This list is not all inclusive. Please consult your medical provider for any other symptoms that are severe or concerning. Call 911 if you have a medical emergency: If you have a medical emergency and need to call 911, notify the barrel lathe operator outside that you have or think you might have, COVID-19. If possible, put on a facemask before medical help arrives. Separate yourself from other people in your home, this is known as home isolation As much as possible, you should stay away from other people and pets in your home. You should stay in a specific ???sick room?? if possible. Use a separate bathroom, if available. If you need to be around other people or animals in or outside of the home, wear a mask For more information on sharing close living quarters with someone who is sick visit https://www.cdc .gov/coronavirus/2019-ncov/lyxkg-qroq-cqlfcr/aeqsqn-cp-wfhqf-quarters.html For more information on COVID-19 and pets visit https://www.cdc.gov/coronavirus/2019-ncov/faq.html Call ahead before visiting your doctor Many medical visits for routine care are being postponed or done by phone or telemedicine. If you have a medical appointment that cannot be postponed, call your doctor???s office, and tell them you have or may have COVID-19. This will help the office protect themselves and other patients. Melinda Colon NP documented in this encounter Plan of Treatment Not on file documented as of this encounter Procedures Procedure Name Priority Date/Time Associated Diagnosis Comments POC INFLUENZA A/B, COVID-19 ANTIGEN Routine 03/16/2023 9:45 AM CDT Positive self-administered antigen test for COVID-19 COVID-19 documented in this encounter Results * (ABNORMAL) POC Influenza A/B, COVID-19 antigen (03/16/2023 9:45 AM CDT) Influenza A Ag, POC Negative Negative [facility] Influenza B Ag, POC Negative Negative [facility] COVID-19 Ag POC Positive(A) Presumptive Negative, Invalid [facility] Nasal 03/16/2023 9:45 AM CDT us Melinda Colon NP POINT OF CARE TEST ORDERABLES Final Result [facility] [address] [place] [address], [facility] documented in this encounter Visit Diagnoses Diagnosis Positive self-administered antigen test for COVID-19- Primary COVID-19 documented in this encounter Discontinued Medications Medication Sig Discontinue Reason Start Date End Da te lisinopril (PRINIVIL,ZESTRIL) 10 mg tablet 1 tablet daily Refill not appropriate 06/09/2019 documented as of this encounter Historical Medications * This list may reflect changes made after this encounter. fluticasone propionate (FLONASE) 50 mcg/actuation nasal spray SHAKE LIQUID AND USE 2 SPRAYS IN EACH NOSTRIL ONCE DAILY. 01/28/2023 added in this encounter Additional Health Concerns Infection Onset Date Last Indicated Resolved Time COVID19 03/16/2023 03/16/2023 03/26/2023 3:06 AM CDT documented as of this encounter Care Teams Cosmetology Educator Relationship Specialty [place] [address] [facility] [place] [address] PCP - General 12/25/14 03/21/24 documented as of this encounter
--- OUTSIDE RECORDS SUMMARY | 2024-07-10 20:00 | XMS_ITS | Encounter Summary ---
Author Organization [facility] Healthcare Address [address] [place] [address] Care Team Providers Care Safety Officer Name Role Phone Real Gao MD Primary Care Provider + Reason for Visit * Cardiology (Routine) - Closed Specialty Diagnoses / Procedures Referred By Adelaida kamara Referred To Contact Diagnoses Second degree AV block, Mobitz type II Procedures DEVICE CHECK - REMOTE Ruben Ashby MD [address] [address] Phone: tel: fax: Referral ID Status Reason Start Date Expiration Date Visits Re quested Visits Authorized [id number] Closed 06/04/2023 12/03/2024 1 1 Encounter Details Date Type Department Care Team (Latest Contact Info) Description 12/09/2023 7:00 AM CDT Ancillary Procedure [facility] Cardiology [address] [place] [id number] Cardiac pacemaker in situ [Z95.0] (Primary Dx); Second degree AV block, Mobitz type II Social History Tobacco Use Types Packs/Day Years Used Date Smoking Tobacco: Former Cigarettes Q uit: 07/05/1982 Smokeless Tobacco: Never Comments:QUITE 35 YEARS AGO Alcohol Use Standard Drinks/Week Comments No 0 (1 standard drink = 0.6 oz pur e alcohol) Sex and Gender Information Value Date Recorded Sex Assigned at Not on file 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 Dx; Second Degree AVB. DOI 11/26/2018-Symone. Biotronik remote monitoring, office checks Q1 yr. Routine DDD Pacemaker remote. Normal device function. Battery function-Ok, 60% remaining battery life to CECILLE. Appropriate lead measurements noted. Presenting rhythm: -RECRUITING ASSOCIATE. AP-10%, RECRUITING ASSOCIATE-100%. No atrial high rate episodes noted. ? No ventricular high rate episodes noted Medications; Zocor, ASA. See scanned report. Office pacemaker f/u 03/15/2024. Karolina Butts, RN Ruben Ashby MD [facility] PROC EDURES Final Result documented in this encounter Visit Diagnoses Diagnosis Cardiac pacemaker in situ [Z95.0]- Primary Cardiac pacemaker in situ Second degree AV block, Mobitz type II Mobitz (type) II atrioventricular block documented in this encounter Care Teams Safety Officer Relationship Specialty [place] [address] [place] [address] PCP - General 12/25/14 03/21/24 documented as of this encounter
--- OUTSIDE RECORDS SUMMARY | 2024-07-10 20:00 | XMS_ITS | Referral Summary ---
Author Organization [facility] [place] [address] Address [address] [place] [address] Care Team Providers Care Wastewater Technician Name Role Phone Jayson Ibarra Primary Care Provide r Encounters Date Type Department Care Team Description 07/06/2024 Orders Only [facility] Cardiology [address] [place] [address] [place] [phone] Ruben Ashby MD Cardiac pacemaker in situ (Primary Dx); Second degree AV block, Mobitz type II 06/27/2024 7:00 AM GROUP DIRECTOR EXPERIENCE Ancillary Procedure [facility] Cardiology [address] [place] [phone] Second degree AV block, Mobitz type II 06/12/2024 10:30 AM GROUP DIRECTOR EXPERIENCE Office Visit [facility] Cardiology at [address] [place] [address] Ruben Ashby MD Second degree AV block, Mobitz type II (Primary Dx); Cardiac pacemaker in situ; Lipid screening from Last 3 Months Allergies Active Allergy Reactions Criticality Noted Date [...] Biotronik remote monitoring, office checks Q1 yr. Patrice venegas 12/25/2014 Overview (10/08/2016): Cerumen impaction Left bundle branch block (LBBB) 08/06/2014 Social History Tobacco Use Types Packs/Day Years Used Date Smoking Tobacco: Former Cigarettes Q uit: 07/05/1982 Smokeless Tobacco: Never Tobacco Cessation:Counseling Given: Not Answered Comments:QUITE 35 YEARS AGO Alcohol Use Standard Drinks/Week Comments No 0 (1 standard drink = 0.6 oz pur e alcohol) Sex and Gender Information Value Date Recorded Sex Assigned at Not on file Legal Sex Male 10:31 PM GROUP DIRECTOR EXPERIENCE Gender Identity Not on file Sexual Orientation Not on file Last Filed Vital Signs Vital Sign Reading Time Taken Comments Blood Pressure 122/70 06/12/2024 10:07 AM GROUP DIRECTOR EXPERIENCE Pulse 70 06/12/2024 10:07 AM GROUP DIRECTOR EXPERIENCE Temperature 38.1 ??C (100.5 ??F) 03/16/2023 9:44 AM C DT Respiratory Rate 18 04/28/2023 9:24 AM CDT Oxygen Saturation 99% 06/12/2024 10:07 AM GROUP DIRECTOR EXPERIENCE Inhaled Oxygen Concentration - - Weight 78 kg (172 lb) 06/12/2024 10:07 AM GROUP DIRECTOR EXPERIENCE Height 177.8 cm (5' 10 ) 06/12/2024 10:07 AM GROUP DIRECTOR EXPERIENCE Body Mass Index 24.68 06/12/2024 10:07 AM GROUP DIRECTOR EXPERIENCE Plan of Treatment Not on file Procedures Procedure Name Priority Date/Time Associated Diagnosis Comments POCT LIPID PANEL Routine 06/12/2024 11:0 3 AM GROUP DIRECTOR EXPERIENCE Lipid screening from Last 3 Months Results * POCT lipid panel (06/12/2024 11:03 AM GROUP DIRECTOR EXPERIENCE) Cholesterol, POC 108 mg/dL HDL, POC 38 mg/dL Triglycerides, POC 78 mg/dL LDL Cholesterol POC 54 mg/dL Chol/HDL Ratio, POC 2.8 Non-HDL Cholesterol, POC 69 mg/dL Cholesterol Total, POC 108 mg/dL Capillary blood 06/12/2024 1 1:03 AM GROUP DIRECTOR EXPERIENCE us Ruben Ashby MD POINT OF CARE TEST ORDER SEUN Final Result from Last 3 Months Insurance MEDICARE [facility] MEDICARE [facility] MEDICARE [place] [employer] LOZANO Care Teams Wastewater Technician Relationship Specialty Start Date End Date Jayson Ibarra DO [address] [place] [address] PCP - General Family Medicine 03/22/24
--- OUTSIDE RECORDS SUMMARY | 2024-07-10 20:00 | XMS_ITS | Encounter Summary ---
Author Organization [facility] Address [address] [place] [id number] Care Team Providers Care Reproductive Healthcare Assistant Name Role Phone Fred Jaysonkemal King Primary Care Provide r Reason for Visit * Reason Comments Follow-up Yearly follow up on second degree AV block, pacer, LBBB Encounter Details Date Type Department Care Team (Late st Contact Info) Description 06/12/2024 10:30 AM DISHWASHER BUSSER Office Visit [facility] Cardiology at [address] [place] [address] Ruben Ashby MD [address] [facility] [address] [place] [address] Second degree AV block, Mobitz type II (Primary Dx); Cardiac pacemaker in situ; Lipid screening Social History Tobacco Use Types Packs/Day Years Used Date Smoking Tobacco: Former Cigarettes Q uit: 07/05/1982 Smokeless Tobacco: Never Comments:QUITE 35 YEARS AGO Alcohol Use Standard Drinks/Week Comments No 0 (1 standard drink = 0.6 oz pur e alcohol) Sex and Gender Information Value Date Recorded Sex Assigned at Not on file Legal Sex Male 10:31 PM DISHWASHER BUSSER Gender Identity Not on file Sexual Orientation Not on file documented as of this encounter Last Filed Vital Signs Vital Sign Reading Time Taken Comments Blood Pressure 122/70 06/12/2024 10:07 AM DISHWASHER BUSSER Pulse 70 06/12/2024 10:07 AM DISHWASHER BUSSER Temperature - - Respiratory Rate - - Oxygen Saturation 99% 06/12/2024 10:07 AM DISHWASHER BUSSER Inhaled Oxygen Concentration - - Weight 78 kg (172 lb) 06/12/2024 10:07 AM DISHWASHER BUSSER Height 177.8 cm (5' 10 ) 06/12/2024 10:07 AM DISHWASHER BUSSER Body Mass Index 24.68 06/12/2024 10:07 AM DISHWASHER BUSSER documented in this encounter Progress Notes * Ruben Ashby MD - 06/12/2024 10:30 AM CST [facility] FOLLOW UP 06/12/2024 Jose Alexandre is a 69 y.o. male who presents for follow up of second-degree AV block and previously implanted pacemaker. This is a patient that I saw in consultation at [facility] in November of 2018 after having 2 syncopal episodes at home. He was found to have second-degree AV block and trifascicular disease on his ECG. Following that presentation he received a Biotronik dual- chamber pacemaker uneventfully and returns today for follow-up. Past medical history was otherwise remarkable for hypertension and a history of focal focal glomerulosclerosis. He returns to the office today for scheduled follow-up. Patient's pacemaker checks look fine devicehas more than 5 years until anticipated need for generator change. He has no cardiovascular symptoms or concerns in with respect to his pacemaker device has no complaints he has not had a syncopal ornear syncopal event since it was implanted. He does share with me that he now has non insulin-dependent diabetes for which he has been placed on Farxiga REVIEW OF SYSTEMS General ROS: negative for - chills, fatigue, fever, malaise, night sweats, weight gain or weight loss Psychological ROS: negative for - anxiety, depression, memory difficulties or sleep disturbances Ophthalmic ROS: negative for - blurry vision, decreased vision, loss of vision or scotomata ENT ROS: negative for - epistaxis, headaches, hearing change, nasal congestion, nasal discharge, sore throat, vertigo or visual changes Hematological and Lymphatic ROS: negative for - bleeding problems, blood clots, bruising, fatigue or weight loss Endocrine ROS: negative for - hot flashes, palpitations, polydipsia/polyuria or unexpected weight changes Respiratory ROS: negative for - cough, hemoptysis, orthopnea, shortness of breath, tachypnea or wheezing Cardiovascular ROS: negative for - chest pain, dyspnea on exertion, edema, irregular heartbeat, loss of consciousness, murmur, orthopnea, palpitations, paroxysmal nocturnal dyspnea, rapid heart rate or shortness of breath Gastrointestinal ROS: negative for - abdominal pain, appetite loss, blood in stools, constipation, diarrhea, gas/bloating, heartburn, hematemesis, melena or nausea/vomiting Genito-Urinary ROS: negative for - dysuria, erectile dysfunction or hematuria Musculoskeletal ROS: negative for - joint pain, muscle pain or muscular weakness Dermatological ROS: negative for dry skin, eczema, pruritus and rash HOME MEDICATIONS Current Outpatient Medications: albuterol HFA (PROVENTIL HFA,VENTOLIN HFA,PROAIR HFA) 90 mcg/actuation inhaler, as needed, Disp: , Rfl: aspirin 81 mg enteric coated tablet, Take 1 tablet (81 mg total) by mouth daily, Disp: , Rfl: benzonatate (TESSALON) 200 mg capsule, Take 1 capsule (200 mg total) by mouth 3 (three) times a dayas needed for cough, Disp: 30 capsule, Rfl: 0 cholecalciferol (VITAMIN D-3) 1000 unit tablet, Take 1 tablet (1,000 Units total) by mouth daily, Disp: , Rfl: dapagliflozin propanediol (FARXIGA) 5 mg tablet, Take 1 tablet (5 mg total) by mouth daily, Disp: ,Rfl: finasteride (PROSCAR) 5 mg tablet, 1 tablet (5 mg total) daily, Disp: , Rfl: 3 fluticasone (VERAMYST) 27.5 mcg/actuation nasal spray, Administer 2 sprays into each nostril once daily, Disp: , Rfl: fluticasone propionate (FLONASE) 50 mcg/actuation nasal spray, SHAKE LIQUID AND USE 2 SPRAYS IN EACH NOSTRIL ONCE DAILY., Disp: , Rfl: lisinopriL (PRINIVIL,ZESTRIL) 10 mg tablet, Take 1 tablet (10 mg total) by mouth daily as needed, Disp: , Rfl: simvastatin (ZOCOR) 20 mg tablet, 1 tablet (20 mg total) nightly, Disp: , Rfl: tamsulosin (FLOMAX) 0.4 mg extended release capsule, 1 capsule (0.4 mg total) daily, Disp: , Rfl: 3 LABS AND OTHER DIAGNOSTIC TESTS No results found for: CHOL No results found for: HDL No results found for: LDLCALC No results found for: TRIG No results found for: CHOLHDL No results found for: WBC , HGB , HCT , MCV , PLT No lab exists for component: LABALBU PHYSICAL EXAM Vitals BP 122/70 (BP Location: Left arm, Patient Position: Sitting) Pulse 70 Ht 177.8 cm (5' 10 ) Wt 78 kg (172 lb) SpO2 99% BMI 24.68 kg/m?? Physical Examination: General appearance - alert, well appearing, and in no distress, oriented to person, place, and time and acyanotic, in no respiratory distress Mental status - affect appropriate to mood Eyes - extraocular eye movements intact, sclera anicteric, no pallor Ears - external earsappear normal, hearing grossly normal bilaterally Nose - normal and patent, no erythema or discharge Mouth - mucous membranes moist, pharynx appears normal, dental hygiene good and tongue normal Neck - supple, no significant neck masses, carotids upstroke normal bilaterally, no bruits, no JVD Chest - clear to auscultation, no wheezes, rales or rhonchi, symmetric air entry, no tachypnea, retractions or cyanosis Heart - normal rate, regular rhythm, normal S1, S2, no murmurs, rubs, clicks or gallops, no JVD Abdomen - soft, nontender, nondistended, no masses or organomegaly bowel sounds normal Neurological - alert, oriented, normal speech, no focal findings or movement disorder noted Musculoskeletal - no joint tenderness, deformity or swelling, no muscular tenderness noted Extremities - peripheral pulses normal, no pedal edema, no clubbing or cyanosis Skin - normal coloration and turgor, no rashes, no suspicious skin lesions noted ASSESSMENT Jose was seen today for follow-up. Diagnoses and all orders for this visit: Second degree AV block, Mobitz type II Cardiac pacemaker in situ PLAN/RECOMMENDATIONS Continue annual follow-up visits with me in the office and routine follow-up in pacemaker Clinic aswell Ruben Ashby MD WASHER BUSSER documented in this encounter Miscellaneous Notes * Addendum Note - Isela Lopez MA - 06/12/2024 10:30 AM CSTAddended by: ISELA LOPEZ on: 06/12/2024 12:29 PM Modules accepted: Orders WASHER BUSSER documented in this encounter Plan of Treatment Not on file documented as of this encounter Procedures Procedure Name Priority Date/Time Associated Diagnosis Comments POCT LIPID PANEL Routine 06/12/2024 11:0 3 AM DISHWASHER BUSSER Lipid screening documented in this encounter Results * POCT lipid panel (06/12/2024 11:03 AM DISHWASHER BUSSER) Cholesterol, POC 108 mg/dL HDL, POC 38 mg/dL Triglycerides, POC 78 mg/dL LDL Cholesterol POC 54 mg/dL Chol/HDL Ratio, POC 2.8 Non-HDL Cholesterol, POC 69 mg/dL Cholesterol Total, POC 108 mg/dL Capillary blood 06/12/2024 1 1:03 AM DISHWASHER BUSSER Ruben Ashby MD POINT OF CARE TEST ORDER SEUN Final Result documented in this encounter Visit Diagnoses Diagnosis Second degree AV block, Mobitz type II- Primary Mobitz (type) II atrioventricular block Cardiac pacemaker in situ Lipid screening Screening for lipoid disorders documented in this encounter Historical Medications * This list may reflect changes made after this encounter. lisinopriL (PRINIVIL,ZESTRIL) 10 mg tablet Take 1 tablet (10 mg total) by mouth daily as needed dapagliflozin propanediol (FARXIGA) 5 mg tablet Take 1 tablet (5 mg total) by mouth daily added in this encounter Care Teams Reproductive Healthcare Assistant Relationship Specialty Start Date End Date Jayson Ibarra DO [address] [place] [address] PCP - General Family Medicine 03/22/24 documented as of this encounter
--- OUTSIDE RECORDS SUMMARY | 2024-07-10 20:00 | XMS_ITS | Encounter Summary ---
Author Organization [facility] Address [address] [place] [address] Care Team Providers Care Contract Runner Name Role Phone Real Gao MD Primary Care Provider + Reason for Referral * Cardiology (Routine) - Authorized Specialty Diagnoses / Procedures Referred By Contac t Referred To Contact Cardiology Diagnoses Second degree AV block, Mobitz type II Procedures DEVICE CHECK - IN OFFICE Ruben Ashby MD [address] [place] [address] Phone: tel: fax: [facility] Referral ID Status Reason Start Date Expiration Date V isits Requested Visits Authorized [id number] Authorized 06/04/2023 07/03/2024 1 1 REPORT CLERK * Cardiology (Routine) - Closed Specialty Diagnoses / Procedures Referred By Contac t Referred To Contact Cardiology Diagnoses Second degree AV block, Mobitz type II Procedures DEVICE CHECK - REMOTE Ruben Ashby MD [address] [place] [address] Phone: tel: fax: [facility] Referral ID Status Reason Start Date Expiration Date Visits Re quested Visits Authorized [id number] Closed 06/04/2023 12/03/2024 1 1 REPORT CLERK * Cardiology (Routine) - Closed Specialty Diagnoses / Procedures Referred By Contac t Referred To Contact Diagnoses Second degree AV block, Mobitz type II Procedures DEVICE CHECK - REMOTE Ruben Ashby MD [address] [place] [address] Phone: tel: fax: Referral ID Status Reason Start Date Expiration Date Visits Re quested Visits Authorized [id number] Closed 06/04/2023 12/03/2024 1 1 REPORT CLERK * Cardiology (Routine) - Closed Specialty Diagnoses / Procedures Referred By Adelaida kamara Referred To Contact Diagnoses Second degree AV block, Mobitz type II Procedures DEVICE CHECK - REMOTE Ruben Ashby MD [address] [place] [address] Phone: tel: fax: Referral ID Status Reason Start Date Expiration Date Visits Re quested Visits Authorized [id number] Closed 06/04/2023 12/03/2024 1 1 REPORT CLERK Encounter Details Date Type Department Care Team (Late st Contact Info) Description 06/04/2023 Orders Only [facility] Cardiology [address] [place] [phone] Ruben Ashby MD [address] [place] [address] Second degree AV block, Mobitz type II [...] on file Legal Sex Male 10:31 PM COST REPORT CLERK Gender Identity Not on file Sexual Orientation Not on file documented as of this encounter Plan of Treatment Pending Results Name Type Priority Associated Diagnoses Date /Time DEVICE CHECK - REMOTE Cardiac Services Routine Second degree AV block, Mobitz type II 07/06/2024 4:14 PM COST REPORT CLERK Scheduled Orders Name Type Priority Associated Diagnoses Orde r Schedule DEVICE CHECK - REMOTE Cardiac Services Routine Second degree AV block, Mobitz type II Expected: 03/03/2024, Expires: 07/04/2030 DEVICE CHECK - IN OFFICE Cardiac Services Routine Second degree AV block, Mobitz type II Expected: 03/21/2025, Expires: 07/04/2030 documented as of this encounter Results * DEVICE CHECK - REMOTE (12/09/2023 8:30 AM CDT) Anatomical Region Laterality Modality Other Narrative 02/28/2024 3:15 PM CDT Biotronik Dual Pacemaker. Dx; Second Degree AVB. DOI 11/26/2018-Symone. Biotronik remote monitoring, office checks Q1 yr. Routine DDD Pacemaker remote. Normal device function. Battery function-Ok, 60% remaining battery life to CECILLE. Appropriate lead measurements noted. Presenting rhythm: -EMBOSSING UNIT OPERATOR. AP-10%, EMBOSSING UNIT OPERATOR-100%. No atrial high rate episodes noted. ? No ventricular high rate episodes noted Medications; Zocor, ASA. See scanned report. Office pacemaker f/u 03/15/2024. Karolina Butts RN Ruben Ashby MD CV CARDIAC SERVICES PROC EDURES Final Result * DEVICE CHECK - REMOTE (09/08/2023 11:45 AM COST REPORT CLERK) Anatomical Region Laterality Modality Other Narrative 12/14/2023 8:45 AM CDT Biotronik Dual Pacemaker. Dx; Second Degree AVB. DOI 11/26/2018-Symone. Biotronik remote monitoring, office checks Q1 yr. Routine DDD Pacemaker remote. Normal device function. Battery function-Ok, 60% remaining battery life to CECILLE. Appropriate lead measurements noted. Presenting rhythm:-EMBOSSING UNIT OPERATOR. AP-10%, EMBOSSING UNIT OPERATOR-100%. No atrial high rate episodes noted. ? No ventricular high rate episodes noted Medications; Zocor, ASA. See scanned report. Biotronik remote f/u 12/09/2023. Karolina Butts, RN Ruben Ashby MD CV CARDIAC SERVICES PROC [facility] Final Result documented in this encounter Visit Diagnoses Diagnosis Second degree AV block, Mobitz type II- Primary Mobitz (type) II atrioventricular block Cardiac pacemaker in situ [Z95.0]- Primary Cardiac pacemaker in situ Second degree AV block, Mobitz type II Mobitz (type) II atrioventricular block Cardiac pacemaker in situ [Z95.0]- Primary Cardiac pacemaker in situ Second degree AV block, Mobitz type II Mobitz (type) II atrioventricular block documented in this encounter Additional Health Concerns Infection Onset Date Last Indicated Resolved Time COVID: Recovered Comment:Added based on recent COVID infection. 03/26/2023 04/28/2023 06/24/2023 3:[address] documented as of this encounter Care Teams Contract Runner Relationship Specialty [place] [address] [place] [address] PCP - General 12/25/14 03/21/24 documented as of this encounter
--- OUTSIDE RECORDS SUMMARY | 2024-07-10 20:00 | XMS_ITS | Encounter Summary ---
Author Organization [facility] Address [address] [address] Care Team Providers Care Windows Vmware Administrator Name Role Phone Real Gao MD Primary Care Provider + Reason for Visit * (Routine) - Closed Specialty Diagnoses / Procedures Referred By Adelaida kamara Referred To Contact Diagnoses Second degree AV block Procedures DEVICE CHECK - REMOTE Ruben Ashby MD [address] [address] Phone: tel: fax: [facility] Referral ID Status Reason Start Date Expiration Date Visits Re quested Visits Authorized [id number] Closed 04/23/2020 05/23/2021 1 1 Encounter Details Date Type Department Care Team (Latest Contact Info) Description 2021 7:00 AM DIGITAL PRE PRESS OPERATOR Ancillary Procedure [facility] Cardiology [address] [facility] [address] [place] [phone] Second degree AV block; Cardiac pacemaker in situ Social History Tobacco Use Types Packs/Day Years Used Date Smoking Tobacco: Former Smokeless Tobacco: Never Comments:QUITE 35 YEARS AGO Alcohol Use Standard Drinks/Week Comments No 0 (1 standard drink = 0.6 oz pur e alcohol) Sex and Gender Information Value Date Recorded Sex Assigned at Not on file Legal Sex Male 10:31 PM DIGITAL PRE PRESS OPERATOR Gender Identity Not on file Sexual Orientation Not on file documented as of this encounter Plan of Treatment Not on file documented as of this encounter Procedures Procedure Name Priority Date/Time Associated Diagnosis Comments DEVICE CHECK - REMOTE Routine 2021 1:39 PM DIGITAL PRE PRESS OPERATOR Second degree AV block documented in this encounter Results * DEVICE CHECK - REMOTE (2021 1:39 PM DIGITAL PRE PRESS OPERATOR) Anatomical Region Laterality Modality Other Narrative 06/19/2021 9:56 AM DIGITAL PRE PRESS OPERATOR Biotronik Dual Pacemaker. Dx; Second Degree AVB. DOI 11/26/2018-Symone. Biotronik remote monitoring, office checks Q1 yr. ? Routine Pacemaker remote. Normal device function. Battery function-ok, 80% remaining battery life to CECILLE. Appropriate lead measurements. Presenting rhythm-ASVP. AP-15%, DISTRICT COURT REPORTER-100%. No atrial high rate episodes noted. No ventricular high rate episodes noted Medications; Lisinopril, Zocor, ASA. See scanned report. Biotronik remote f/u 08/12/2021. us Ruben Ashby MD CV CARDIAC SERVICES PROC EDURES Final Result documented in this encounter Visit Diagnoses Diagnosis Second degree AV block Other second degree atrioventricular block Cardiac pacemaker in situ documented in this encounter Care Teams Windows Vmware Administrator Relationship Specialty [place] [address] [address] [place] [address] PCP - General 12/25/14 03/21/24 documented as of this encounter
--- OUTSIDE RECORDS SUMMARY | 2024-07-10 20:00 | XMS_ITS | Encounter Summary ---
Author Organization [facility] Address [address] [address] Care Team Providers Care Pick Up Man Name Role Phone Real Gao MD Primary Care Provider + Reason for Referral * Cardiology (Routine) - Closed Specialty Diagnoses / Procedures Referred By Adelaida kamara Referred To Contact Diagnoses Second degree AV block Procedures DEVICE CHECK - REMOTE Ruben Ashby MD [address] [address] Phone: tel: fax: [facility] Referral ID Status Reason Start Date Expiration Date Visits Re quested Visits Authorized [id number] Closed 08/12/2021 02/09/2023 1 1 DE BARREL LATHE OPERATOR Encounter Details Date Type Department Care Team (Late st Contact Info) Description 08/12/2021 Orders Only [facility] Cardiology [facility] [address] [phone] Ruben Ashby MD [address] [address] Second degree AV block (Primary Dx) Social History Tobacco Use Types Packs/Day Years Used Date Smoking Tobacco: Former Smokeless Tobacco: Never Comments:QUITE 35 YEARS AGO Alcohol Use Standard Drinks/Week Comments No 0 (1 standard drink = 0.6 oz pur e alcohol) Sex and Gender Information Value Date Recorded Sex Assigned at Not on file Legal Sex Male 10:31 PM INSIDE BARREL LATHE OPERATOR Gender Identity Not on file Sexual Orientation Not on file documented as of this encounter Plan of Treatment Not on file documented as of this encounter Results * DEVICE CHECK - REMOTE (05/26/2022 1:48 PM INSIDE BARREL LATHE OPERATOR) Anatomical Region Laterality Modality Other Narrative 07/21/2022 10:36 AM INSIDE BARREL LATHE OPERATOR Biotronik Dual Pacemaker. Dx; Second Degree AVB. DOI 11/26/2018-Symone. Biotronik remote monitoring, office checks Q1 yr. Routine Pacemaker remote. Normal device function. Battery function-Ok, 70% remaining battery life to CECILLE. Appropriate lead measurements. Presenting rhythm-ASVP. AP-6%, LEATHER GOODS I ASSEMBLER-100%. No atrial high rate episodes noted. ?? No ventricular high rate episodes noted Medications; Lisinopril, Zocor, ASA. See scanned report. Biotronik remote f/u 08/25/2022. Ruben Ashby MD CV CARDIAC SERVICES PROC EDURES Final Result documented in this encounter Visit Diagnoses Diagnosis Second degree AV block- Primary Other second degree atrioventricular block Second degree AV block Other second degree atrioventricular block Cardiac pacemaker in situ documented in this encounter Care Teams Pick Up Man Relationship Specialty [place] [address] [facility] [place] [address] PCP - General 12/25/14 03/21/24 documented as of this encounter
--- OUTSIDE RECORDS SUMMARY | 2024-07-10 20:00 | XMS_ITS | Encounter Summary ---
Author Organization [facility] Healthcare Address [address] [place] [address] Care Team Providers Care Marine Mammal Trainer Name Role Phone Real Gao MD Primary Care Provider + Reason for Visit * Reason Comments AVB Annual f/u Encounter Details Date Type Department Care Team (Late st Contact Info) Description 05/12/2023 9:15 AM RANGE ECOLOGIST Office Visit [facility] Medical Group Cardiology at [address] [place] [address] Ruben Ashby MD [address] [facility] [[email or web address] [address] [place] [address] Second degree AV block, Mobitz type II (Primary Dx); Cardiac pacemaker in situ; Left bundle branch block (LBBB); Lipid screening Social History Tobacco Use Types [...] on file Legal Sex Male 10:31 PM RANGE ECOLOGIST Gender Identity Not on file Sexual Orientation Not on file documented as of this encounter Last Filed Vital Signs Vital Sign Reading Time Taken Comments Blood Pressure 100/66 05/12/2023 9:19 AM RANGE ECOLOGIST Pulse 94 05/12/2023 9:19 AM RANGE ECOLOGIST Temperature - - Respiratory Rate - - Oxygen Saturation 97% 05/12/2023 9:19 AM RANGE ECOLOGIST Inhaled Oxygen Concentration - - Weight 81.6 kg (180 lb) 05/12/2023 9:19 AM RANGE ECOLOGIST Height 177.8 cm (5' 10 ) 05/12/2023 9:19 AM RANGE ECOLOGIST Body Mass Index 25.83 05/12/2023 9:19 AM RANGE ECOLOGIST documented in this encounter Progress Notes * Ruben Ashby MD - 05/12/2023 9:15 AM CST [facility] FOLLOW UP 05/12/2023 Jose Alexandre is a 67 y.o. male who presents for follow up of second-degree AV block and previously implanted pacemaker. This is a patient that I saw in consultation at [facility] in November of 2018 after having 2 [...] to the office today for scheduled follow-up. His pacemaker checks in the chart look fine. About 6-1/2 years left on the current generator. He feels fine he is fully active and has no cardiovascular complaints. Discussed some questions he had about the generator change in the future. REVIEW OF SYSTEMS General ROS: negative for [...] total) by mouth daily, Disp: , Rfl: finasteride (PROSCAR) 5 mg tablet, 1 tablet (5 mg total) daily, Disp: , Rfl: 3 fluticasone (VERAMYST) 27.5 mcg/actuation nasal spray, Administer 2 sprays into each nostril once daily, Disp: , Rfl: fluticasone propionate (FLONASE) 50 mcg/actuation nasal spray, SHAKE LIQUID AND USE 2 SPRAYS IN EACH NOSTRIL ONCE DAILY., Disp: , Rfl: simvastatin (ZOCOR) 20 mg [...] for component: LABALBU PHYSICAL EXAM Vitals BP 100/66 (BP Location: Right arm, Patient Position: Sitting) Pulse 94 Ht 177.8 cm (5' 10 ) Wt 81.6 kg (180 lb) SpO2 97% BMI 25.83 kg/m?? Physical Examination: General appearance - alert, [...] noted ASSESSMENT Jose was seen today for avb. Diagnoses and all orders for this visit: Second degree AV block, Mobitz type II Cardiac pacemaker in situ Left bundle branch block (LBBB) PLAN/RECOMMENDATIONS Continue annual follow-up visits with me in the office and routine follow-up in pacemaker Clinic aswell Ruben Ashby MD E ECOLOGIST documented in this encounter Miscellaneous Notes * Addendum Note - Brittanie Bonilla MA - 05/12/2023 9:15 AM CSTAddended by: BRITTANIE BONILLA on: 05/12/2023 09:55 AM Modules accepted: Orders E ECOLOGIST documented in this encounter Plan of Treatment Not on file documented as of this encounter Procedures Procedure Name Priority Date/Time Associated Diagnosis Comments POCT LIPID PANEL Routine 05/12/2023 9:16 AM RANGE ECOLOGIST Lipid screening documented in this encounter Results * POCT lipid panel (05/12/2023 9:16 AM RANGE ECOLOGIST) Cholesterol, POC 155 mg/dL HDL, POC 44 mg/dL Triglycerides, POC 153 mg/dL LDL Cholesterol POC 81 mg/dL Chol/HDL Ratio, POC 3.5 Non-HDL Cholesterol, POC 111 mg/dL Cholesterol Total, POC 155 mg/dL Capillary blood 05/12/2023 9 :16 AM RANGE ECOLOGIST us Ruben Ashby MD POINT OF CARE TEST ORDER SEUN Final Result documented in this encounter Visit Diagnoses Diagnosis Second degree AV block, Mobitz type II- Primary Mobitz (type) II atrioventricular block Cardiac pacemaker in situ Left bundle branch block (LBBB) Lipid screening Screening for lipoid disorders documented in this encounter Additional Health Concerns Infection Onset Date Last Indicated Resolved Time COVID: Recovered Comment:Added based on recent COVID infection. 03/26/2023 04/28/2023 06/24/2023 3:[address] documented as of this encounter Care Teams Marine Mammal Trainer Relationship Specialty [place] [address] [facility] [place] [address] PCP - General 12/25/14 03/21/24 documented as of this encounter
--- OUTSIDE RECORDS SUMMARY | 2024-07-10 20:00 | XMS_ITS | Encounter Summary ---
Author Organization Formerly [facility] Address [address] [place] [address] Care Team Providers Care Uniform Force Captain Name Role Phone Jayson Ibarra DO Primary Care Provide r Reason for Referral * Cardiology (Routine) - Canceled Specialty Diagnoses / Procedures Referred By Adelaida kamara Referred To Contact Diagnoses Cardiac pacemaker in situ Second degree AV block, Mobitz type II Procedures DEVICE CHECK - IN OFFICE Ruben Ashby MD [address] [place] [address] Phone: tel: fax: [facility] Referral ID Status Reason Start Date Expiration Date V isits Requested Visits Authorized [id number] Canceled 03/22/2024 04/21/2025 1 1 * Cardiology (Routine) - Canceled Specialty Diagnoses / Procedures [facility] Referred To Contact Diagnoses Cardiac pacemaker in situ Second degree AV block, Mobitz type II Procedures DEVICE CHECK - IN OFFICE Ruben Ashby MD [address] [address] Phone: tel: fax: [facility] Referral ID Status Reason Start Date Expiration Date V isits Requested Visits Authorized [id number] Canceled 03/22/2024 04/21/2025 1 1 * Cardiology (Routine) - Canceled Specialty Diagnoses / Procedures Referred By Contac t Referred To Contact Diagnoses Cardiac pacemaker in situ Second degree AV block, Mobitz type II Procedures DEVICE CHECK - IN OFFICE Ruben Ashby MD [address] [place] [address] Phone: tel: fax: [facility] Referral ID Status Reason Start Date Expiration Date V isits Requested Visits Authorized [id number] Canceled 03/22/2024 04/21/2025 1 1 * Cardiology (Routine) - Authorized Specialty Diagnoses / Procedures Referred By Contac t Referred To Contact Cardiology Diagnoses Cardiac pacemaker in situ Second degree AV block, Mobitz type II Procedures DEVICE CHECK - REMOTE Ruben Ashby MD [address] [place] [address] Phone: tel: fax: [facility] Referral ID Status Reason Start Date Expiration Date V isits Requested Visits Authorized [id number] Authorized 03/22/2024 09/19/2025 1 1 * Cardiology (Routine) - Authorized Specialty Diagnoses / Procedures Referred By Contac t Referred To Contact Cardiology Diagnoses Cardiac pacemaker in situ Second degree AV block, Mobitz type II Procedures DEVICE CHECK - REMOTE Ruben Ashby MD [address] [place] [address] Phone: tel: fax: [facility] Referral ID Status Reason Start Date Expiration Date V isits Requested Visits Authorized [id number] Authorized 03/22/2024 09/19/2025 1 1 * Cardiology (Routine) - Authorized Specialty Diagnoses / Procedures Referred By Contac t Referred To Contact Cardiology Diagnoses Cardiac pacemaker in situ Second degree AV block, Mobitz type II Procedures DEVICE CHECK - REMOTE Ruben Ashby MD [address] [address] Phone: tel: fax: [facility] Referral ID Status Reason Start Date Expiration Date V isits Requested Visits Authorized [id number] Authorized 03/22/2024 09/19/2025 1 1 Encounter Details Date Type Department Care Team (Late st Contact Info) Description 03/22/2024 Orders Only [facility] Cardiology [address] [phone] Ruben Ashby MD [address] [place] [phone] Cardiac pacemaker in situ (Primary Dx); Second [...] on file Legal Sex Male 10:31 PM 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 Gender Identity Not on file Sexual Orientation Not on file documented as of this encounter Plan of Treatment Scheduled Orders Name Type Priority Associated Diagnoses Orde r Schedule DEVICE CHECK - REMOTE Cardiac Services Routine Cardiac pacemaker in situ Second degree AV block, Mobitz type II Expected: 06/21/2024, Expires: 07/04/2028 DEVICE CHECK - REMOTE Cardiac Services Routine Cardiac pacemaker in situ Second degree AV block, Mobitz type II Expected: 09/20/2024, Expires: 07/04/2028 DEVICE CHECK - REMOTE Cardiac Services Routine Cardiac pacemaker in situ Second degree AV block, Mobitz type II Expected: 12/20/2024, Expires: 07/04/2028 DEVICE CHECK - IN OFFICE Cardiac Services Routine Cardiac pacemaker in situ Second degree AV block, Mobitz type II Expected: 03/22/2024, Expires: 07/12/2031 DEVICE CHECK - IN OFFICE Cardiac Services Routine Cardiac pacemaker in situ Second degree AV block, Mobitz type II Expected: 03/22/2024, Expires: 07/12/2031 DEVICE CHECK - IN OFFICE Cardiac Services Routine Cardiac pacemaker in situ Second degree AV block, Mobitz type II Expected: 03/22/2024, Expires: 07/12/2031 documented as of this encounter Visit Diagnoses Diagnosis Cardiac pacemaker in situ- Primary Second degree AV block, Mobitz type II Mobitz (type) II atrioventricular block documented in this encounter Care Teams Uniform Force Captain Relationship Specialty Start Date End Date Jayson Ibarra DO [address] [place] [address] PCP - General Family Medicine 03/22/24 documented as of this encounter
--- OUTSIDE RECORDS SUMMARY | 2024-07-10 20:00 | XMS_ITS | Encounter Summary ---
Author Organization [facility] Healthcare Address [address] [place] [address] Care Team Providers Care Research And Development Researcher Name Role Phone Real Gao MD Primary Care Provider + Encounter Details Date Type Department Care Team (Late st Contact Info) Description 06/03/2023 Telephone [facility] Medical Group Cardiology [address] [place] [phone] Ruben Ashby MD [address] [facility] [address] [place] [address] Social History Tobacco Use Types Packs/Day Years Used Date Smoking Tobacco: Former Cigarettes Q uit: 07/05/1982 Smokeless Tobacco: Never Comments:QUITE 35 YEARS AGO Alcohol Use Standard Drinks/Week Comments No 0 (1 standard drink = 0.6 oz pur e alcohol) Sex and Gender Information Value Date Recorded Sex Assigned at Not on file Legal Sex Male 10:31 PM STUDENT RECORDS SPECIALIST Gender Identity Not on file Sexual Orientation Not on file documented as of this encounter Miscellaneous Notes * Telephone Encounter - Bell Escobar MA - 06/03/2023 10:26 AM STUDENT RECORDS SPECIALIST Pt returned call, informs me that he is out of town but he does have his monitor with him, states he has it plugged in during the day and then unplugs it at night due to the limited outlets. I explained to him that the monitor is communicating with his device at night, it is better to have the monitor plugged in at night, he said he will try to do that, he returns on June 09. ENT RECORDS SPECIALIST * Telephone Encounter - Bell Escobar MA - 06/03/2023 10:14 AM STUDENT RECORDS SPECIALIST Pt's monitor showing Dc'd on the website, called pt to inform had to LMOR ENT RECORDS SPECIALIST documented in this encounter Plan of Treatment Not on file documented as of this encounter Visit Diagnoses Not on filedocumented in this encounter Additional Health Concerns Infection Onset Date Last Indicated Resolved Time COVID: Recovered Comment:Added based on recent COVID infection. 03/26/2023 04/28/2023 06/24/2023 3:[address] documented as of this encounter Care Teams Research And Development Researcher Relationship Specialty [place] [address] [facility] [place] [address] PCP - General 12/25/14 03/21/24 documented as of this encounter
--- OUTSIDE RECORDS SUMMARY | 2024-07-10 20:00 | XMS_ITS | Encounter Summary ---
Author Organization [facility] Address [address] [address] Care Team Providers Care Webfocus Developer Name Role Phone Real Gao MD Primary Care Provider + Reason for Referral * Cardiology (Routine) - Closed Specialty Diagnoses / Procedures Referred By Adelaida kamara Referred To Contact Diagnoses Second degree AV block Procedures DEVICE CHECK - IN OFFICE Ruben Ashby MD [address] [address] Phone: tel: fax: [facility] Referral ID Status Reason Start Date Expiration Date Visits Re quested Visits Authorized [id number] Closed 08/12/2021 09/11/2022 1 1 REVIEW Encounter Details Date Type Department Care Team (Late st Contact Info) Description 08/12/2021 Orders Only [facility] Cardiology [address] [place] [phone] Ruben Ashby MD [address] [address] Second degree AV block (Primary Dx) Social History Tobacco Use Types Packs/Day Years Used Date Smoking Tobacco: Former Smokeless Tobacco: Never Comments:QUITE 35 YEARS AGO Alcohol Use Standard Drinks/Week Comments No 0 (1 standard drink = 0.6 oz pur e alcohol) Sex and Gender Information Value Date Recorded Sex Assigned at Not on file Legal Sex Male 10:31 PM RN REVIEW Gender Identity Not on file Sexual Orientation Not on file documented as of this encounter Plan of Treatment Not on file documented as of this encounter Results * DEVICE CHECK - IN OFFICE (02/24/2023 10:43 AM CDT) Anatomical Region Laterality Modality Other Narrative 02/25/2023 4:24 PM CDT Biotronik Dual Pacemaker. Dx; Second Degree AVB. DOI 11/26/2018-Symone. Biotronik remote monitoring, office checks Q1 yr. Supervising MD: Dr Uribe. Office DDD Pacemaker evaluation demonstrated appropriate device function. Left pectoral incision well healed without signs of infection noted. Battery function-Ok, 6 years 5 months remaining battery life to CECILLE. Appropriate lead measurements noted. Presenting rhythm-APVP. Underlying rhythm-CHB, no ventricular escape @ DDI 30 bpm. Consider pacemaker dependent. AP-6%, ADHESIVE BANDAGE MACHINE OPERATOR-100%. 1 Atrial high rate episode noted, iegm Atach, and lasted 28 seconds. No Ventricular high rate episodes noted. Medications; ASA 81 mg. No programming changes made to device settings. See scanned report. Office device f/u 03/15/2024. Biotronik remote f/u 06/01/2023. Karolina Butts RN Procedure Note Ruben Ashby MD - 02/25/2023 Biotronik Dual Pacemaker. Dx; Second Degree AVB. DOI 11/26/2018- Symone.Biotronik remote monitoring, office checks Q1 yr. Supervising MD: Dr Uribe. Office DDD Pacemaker evaluation demonstrated appropriate devicefunction. Left pectoral incision well healed without signs of infection noted. Battery function-Ok, 6 years 5 months remaining battery life to CECILLE. Appropriate lead measurements noted. Presenting rhythm-APVP. Underlying rhythm-CHB, no ventricular escape @ DDI30 bpm. Consider pacemaker dependent. AP-6%, ADHESIVE BANDAGE MACHINE OPERATOR-100%. 1 Atrial high rate episode noted, iegm Atach, and lasted 28 seconds. No Ventricular high rate episodes noted. Medications; ASA 81 mg. No programming changes made to device settings. See scanned report. Office device f/u 03/15/2024. Biotronik remote f/u 06/01/2023. Karolina Butts, RN Ruben Ashby MD CV CARDIAC SERVICES PROC EDURES Final Result documented in this encounter Visit Diagnoses Diagnosis Second degree AV block- Primary Other second degree atrioventricular block Cardiac pacemaker in situ- Primary Second degree AV block Other second degree atrioventricular block documented in this encounter Care Teams Webfocus Developer Relationship Specialty [place] [address] [facility] [place] [address] PCP - General 12/25/14 03/21/24 documented as of this encounter
--- OUTSIDE RECORDS SUMMARY | 2024-07-10 20:00 | XMS_ITS | Encounter Summary ---
Author Organization [facility] Address [address] [place] [address] Care Team Providers Care Contract Paralegal Name Role Phone AlinJayson kahn DO Primary Care Provide r Reason for Referral * Cardiology (Routine) - Authorized Specialty Diagnoses / Procedures [facility] Referred To Contact Cardiology Diagnoses Cardiac pacemaker in situ Second degree AV block, Mobitz type II Procedures DEVICE CHECK - REMOTE Ruben Ashby MD [address] [place] [address] Phone: tel: fax: [facility] Referral ID Status Reason Start Date Expiration Date V isits Requested Visits Authorized [id number] Authorized 03/28/2024 09/25/2025 1 1 * Cardiology (Routine) - Authorized Specialty Diagnoses / Procedures [facility] Referred To Contact Cardiology Diagnoses Cardiac pacemaker in situ Second degree AV block, Mobitz type II Procedures DEVICE CHECK - REMOTE Ruben Ashby MD [address] [address] Phone: tel: fax: [facility] Referral ID Status Reason Start Date Expiration Date V isits Requested Visits Authorized [id number] Authorized 03/28/2024 09/25/2025 1 1 * Cardiology (Routine) - Authorized Specialty Diagnoses / Procedures Referred By Contac t Referred To Contact Cardiology Diagnoses Cardiac pacemaker in situ Second degree AV block, Mobitz type II Procedures DEVICE CHECK - REMOTE Ruben Ashby MD [address] [place] [address] Phone: tel: fax: [facility] Referral ID Status Reason Start Date Expiration Date V isits Requested Visits Authorized [id number] Authorized 03/28/2024 09/25/2025 1 1 * Cardiology (Routine) - Authorized Specialty Diagnoses / Procedures Referred By Contac t Referred To Contact Diagnoses Cardiac pacemaker in situ Second degree AV block, Mobitz type II Procedures DEVICE CHECK - IN OFFICE Ruben Ashby MD [address] [place] [address] Phone: tel: fax: [facility] Referral ID Status Reason Start Date Expiration Date V isits Requested Visits Authorized [id number] Authorized 03/28/2024 04/27/2025 1 1 * Cardiology (Routine) - Authorized Specialty Diagnoses / Procedures Referred By Contac t Referred To Contact Diagnoses Cardiac pacemaker in situ Second degree AV block, Mobitz type II Procedures DEVICE CHECK - IN OFFICE Ruben Ashby MD [address] [place] [address] Phone: tel: fax: [facility] Referral ID Status Reason Start Date Expiration Date V isits Requested Visits Authorized [id number] Authorized 03/28/2024 04/27/2025 1 1 * Cardiology (Routine) - Authorized Specialty Diagnoses / Procedures Referred By Contac t Referred To Contact Diagnoses Cardiac pacemaker in situ Second degree AV block, Mobitz type II Procedures DEVICE CHECK - IN OFFICE Ruben Ashby MD [address] [facility] [address] [place] [address] Phone: tel: fax: [facility] Referral ID Status Reason Start Date Expiration Date V isits Requested Visits Authorized [id number] Authorized 03/28/2024 04/27/2025 1 1 Encounter Details Date Type Department Care Team (Late st Contact Info) Description 03/28/2024 Orders Only [facility] Cardiology [address] [place] [phone] Ruben Ashby MD [address] [address] Left bundle branch block (LBBB) (Primary Dx); Cardiac pacemaker in situ; Second degree AV block, Mobitz type II [...] on file Legal 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 Gender Identity Not on file Sexual Orientation Not on file documented as of this encounter Plan of Treatment Scheduled Orders Name Type Priority Associated Diagnoses Orde r Schedule DEVICE CHECK - IN OFFICE Cardiac Services Routine Cardiac pacemaker in situ Second degree AV block, Mobitz type II Expected: 03/28/2024, Expires: 07/18/2031 DEVICE CHECK - IN OFFICE Cardiac Services Routine Cardiac pacemaker in situ Second degree AV block, Mobitz type II Expected: 03/28/2024, Expires: 07/18/2031 DEVICE CHECK - IN OFFICE Cardiac Services Routine Cardiac pacemaker in situ Second degree AV block, Mobitz type II Expected: 03/28/2024, Expires: 07/18/2031 DEVICE CHECK - REMOTE Cardiac Services Routine Cardiac pacemaker in situ Second degree AV block, Mobitz type II Expected: 06/27/2024, Expires: 07/04/2027 DEVICE CHECK - REMOTE Cardiac Services Routine Cardiac pacemaker in situ Second degree AV block, Mobitz type II Expected: 09/26/2024, Expires: 07/04/2027 DEVICE CHECK - REMOTE Cardiac Services Routine Cardiac pacemaker in situ Second degree AV block, Mobitz type II Expected: 12/26/2024, Expires: 07/04/2027 documented as of this encounter Visit Diagnoses Diagnosis Left bundle branch block (LBBB)- Primary Cardiac pacemaker in situ Second degree AV block, Mobitz type II Mobitz (type) II atrioventricular block documented in this encounter Care Teams Contract Paralegal Relationship Specialty Start Date End Date Jayson Ibarra DO [address] [place] [id number] PCP - General Family Medicine 03/22/24 documented as of this encounter
--- OUTSIDE RECORDS SUMMARY | 2024-07-10 20:00 | XMS_ITS | Encounter Summary ---
Author Organization [facility] Address [address] [facility] [address] [place] [address] Care Team Providers Care Analysis Specialist Name Role Phone Real Gao MD Primary Care Provider + Reason for Visit * Cardiology (Routine) - Closed Specialty Diagnoses / Procedures Referred By Adelaida chambers Referred To Contact Diagnoses Second degree AV block Procedures DEVICE CHECK - IN OFFICE Ruben Ashby MD [address] [address] Phone: tel: fax: [facility] Referral ID Status Reason Start Date Expiration Date Visits Re quested Visits Authorized [id number] Closed 08/12/2021 09/11/2022 1 1 Encounter Details Date Type Department Care Team (Latest Contact Info) Description 02/24/2023 11:30 AM CDT Ancillary Procedure [facility] Medical [facility] Cardiology [address] [phone] Cardiac pacemaker in situ (Primary Dx); Second degree AV block Social History Tobacco Use Types Packs/Day Years Used Date Smoking Tobacco: Former Cigarettes Smokeless Tobacco: Never Comments:QUITE 35 YEARS AGO Alcohol Use Standard Drinks/Week Comments No 0 (1 standard drink = 0.6 oz pur e alcohol) Sex and Gender Information Value Date Recorded Sex Assigned at Not on file Legal 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 Consider pacemaker dependent. AP-6%, BOTTOM FILLER-100%. 1 Atrial high rate episode noted, iegm [...] @ DDI30 bpm. Consider pacemaker dependent. AP-6%, BOTTOM FILLER-100%. 1 Atrial high rate episode noted, iegm Atach, and lasted 28 seconds. No Ventricular high rate episodes noted. Medications; ASA 81 mg. No programming changes made to device settings. See scanned report. Office device f/u 03/15/2024. Biotronik remote f/u 06/01/2023. Karolina Butts, RN Ruben Ashby MD CV CARDIAC SERVICES PROC [facility] Final Result documented in this encounter Visit Diagnoses Diagnosis Cardiac pacemaker in situ- Primary Second degree AV block Other second degree atrioventricular block documented in this encounter Care Teams Analysis Specialist Relationship Specialty [place] [address] [facility] [place] [address] PCP - General 12/25/14 03/21/24 documented as of this encounter
--- OUTSIDE RECORDS SUMMARY | 2024-07-10 20:00 | XMS_ITS | Encounter Summary ---
Author Organization [facility] Address [address] [facility] [address] [place] [address] Care Team Providers Care Precision Market Insights Name Role Phone Real Gao MD Primary Care Provider + Encounter Details Date Type Department Care Team (Late st Contact Info) Description 09/02/[address] 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 NG MACHINE SETTER * Telephone Encounter - Ghassan Pia - 09/02/2020 9:12 AM CST Received a call from Isela about changing an apt. Contact: NG MACHINE SETTER documented in this encounter Plan of Treatment Not on file documented as of this encounter Visit Diagnoses Not on filedocumented in this encounter Care Teams Precision Market Insights Relationship Specialty [place] [address] [place] [address] PCP - General 12/25/14 03/21/24 documented as of this encounter
--- OUTSIDE RECORDS SUMMARY | 2024-07-10 20:00 | XMS_ITS | Encounter Summary ---
Author Organization [facility] Healthcare Address [address] [place] [address] Care Team Providers Care Irrigation Engineer Name Role Phone Real Gao MD Primary Care Provider + Encounter Details Date Type Department Care Team (Late st Contact Info) Description 07/04/2021 5:25 AM PARTS INTERPRETER Lab [address] [phone] COVID-19 ruled out Social History Tobacco Use Types Packs/Day Years Used Date Smoking Tobacco: Former Smokeless Tobacco: Never Comments:QUITE 35 YEARS AGO Alcohol Use Standard Drinks/Week Comments No 0 (1 standard drink = 0.6 oz pur e alcohol) Sex and Gender Information Value Date Recorded Sex Assigned at Not on file Legal Sex Male 10:31 PM PARTS INTERPRETER Gender Identity Not on file Sexual Orientation Not on file documented as of this encounter Miscellaneous Notes * Result Encounter Note - Aravind Madera MA - 07/05/2021 8:15 AM CST Viewed on [employer] S INTERPRETER * Result Encounter Note - Vaishali Eaton NP - 07/05/2021 7:57 AM PARTS INTERPRETER Please notify patient of negative COVID-19 test. If patient was symptomatic, patient should continue to self isolate until at least 10 days have passed since symptom onset and they have been fever free without the use of fever reducing medications for at least 24 hours. S INTERPRETER documented in this encounter Plan of Treatment Not on file documented as of this encounter Procedures Procedure Name Priority Date/Time Associated Diagnosis Comments COVID-19 CORONAVIRUS RNA Routine 07/03/2021 2:54 PM PARTS INTERPRETER COVID-19 ruled out documented in this encounter Results * COVID-19 Coronavirus RNA Nasopharyngeal (07/03/2021 2:54 PM PARTS INTERPRETER) COVID-19 RNA Not Detected CERSANDRINE CH Comment: Interpretive Data Synonyms for this test include: PCR and NAAT . ??Testing performed by the [facility] Molecular Infectious Disease Laboratory. The 2018-Novel [...] on August 08, 2020. Testing performed by: [facility], [address] [place] [address]., [address] First COVID-19 test? No CERNER CH Comment:Testing performed by : [facility], [address] [place]., [address] Employeed in healthcare? No CERNER CH Comment:Testing performed by : [facility], [address] [place] [address]., [address] Group care resident? No CERNER CH Comment:Testing performed by : [facility], [address] [place] [address]., [address] Hospitalized? No CERNER CH Comment:Testing performed by : [facility], [address] [place]., [address] Is patient in ICU? No CERNER CH Comment:Testing performed by : [facility], [address] [place]., [address] Symptomatic as defined by CDC? No CERNER CH Comment:Testing performed by : [facility], [address] [facility], [place] [address] Nasopharyngeal 07/03/2021 2: 54 PM PARTS INTERPRETER 07/04/2021 11:39 AM PARTS INTERPRETER Narrative LIZETTE VALE - 07/04/2021 8:20 PM PARTS INTERPRETER What is the reason for testing?->Requirement for travel asymptomatic (batch) Amanda Kan BANQUET COORDINATOR LAB MICROBIOLOGY - NEROH ORDERABLES Final Result LIZETTE [address] [address] Department [place] [address] documented in this encounter Visit Diagnoses Diagnosis COVID-19 ruled out documented in this encounter Care Teams Irrigation Engineer Relationship Specialty [place] [address] [address] [facility] [place] [address] PCP - General 12/25/14 03/21/24 documented as of this encounter
--- OUTSIDE RECORDS SUMMARY | 2024-07-10 20:00 | XMS_ITS | Encounter Summary ---
Author Organization [facility] Address [address] [address] Care Team Providers Care Assembler Lay Ups Name Role Phone Real Gao MD Primary Care Provider + Reason for Visit * Cardiology (Routine) - Closed Specialty Diagnoses / Procedures Referred By Adelaida kamara Referred To Contact Diagnoses Second degree AV block Procedures DEVICE CHECK - REMOTE Ruben Ashby MD [address] [address] Phone: tel: fax: [facility] Referral ID Status Reason Start Date Expiration Date Visits Re quested Visits Authorized [id number] Closed 2021 06/12/2022 1 1 Encounter Details Date Type Department Care Team (Latest Contact Info) Description 08/12/2021 8:15 AM SUPERVISOR HARD CANDY Ancillary Procedure [facility] Cardiology [facility] [facility] [address] [place] [phone] Second degree AV block; Cardiac pacemaker in situ Social History Tobacco Use Types Packs/Day Years Used Date Smoking Tobacco: Former Smokeless Tobacco: Never Comments:QUITE 35 YEARS AGO Alcohol Use Standard Drinks/Week Comments No 0 (1 standard drink = 0.6 oz pur e alcohol) Sex and Gender Information Value Date Recorded Sex Assigned at Not on file Legal Sex Male 10:31 PM SUPERVISOR HARD CANDY Gender Identity Not on file Sexual Orientation Not on file documented as of this encounter Plan of Treatment Not on file documented as of this encounter Procedures Procedure Name Priority Date/Time Associated Diagnosis Comments DEVICE CHECK - REMOTE Routine 08/12/2021 4:23 PM SUPERVISOR HARD CANDY Second degree AV block documented in this encounter Results * DEVICE CHECK - REMOTE (08/12/2021 4:23 PM SUPERVISOR HARD CANDY) Anatomical Region Laterality Modality Other Narrative 09/29/2021 2:20 PM CDT Biotronik Dual Pacemaker. Dx; Second Degree AVB. DOI 11/26/2018-Symone. Biotronik remote monitoring, office checks Q1 yr. ? Routine Pacemaker remote. Normal device function. Battery function-ok, 75% remaining battery life to CECILLE. Appropriate lead measurements. ?? Presenting rhythm-ASVP. AP-12%, EXTERMINATION SUPERVISOR-100%. ?? No atrial high rate episodes noted. No ventricular high rate episodes noted ?? Medications; Lisinopril, Zocor, ASA. See scanned report. ?? Biotronik remote f/u 11/11/2021. Ruben Ashby MD CV CARDIAC SERVICES PROC [facility] Final Result documented in this encounter Visit Diagnoses Diagnosis Second degree AV block Other second degree atrioventricular block Cardiac pacemaker in situ documented in this encounter Care Teams Assembler Lay Ups Relationship Specialty [place] [address] [place] [place] [address] [place] [address] PCP - General 12/25/14 03/21/24 documented as of this encounter
--- OUTSIDE RECORDS SUMMARY | 2024-07-10 20:00 | XMS_ITS | Encounter Summary ---
Author Organization [facility] Address [address] [address] Care Team Providers Care Electron Beam Photo Mask Maker Name Role Phone Real Gao MD Primary Care Provider + Reason for Visit * Cardiology (Routine) - Closed Specialty Diagnoses / Procedures Referred By Adelaida kamara Referred To Contact Diagnoses Second degree AV block Procedures DEVICE CHECK - REMOTE Ruben Ashby MD [address] [address] Phone: tel: fax: [facility] Referral ID Status Reason Start Date Expiration Date Visits Re quested Visits Authorized [id number] Closed 05/26/2022 11/24/2023 1 1 Encounter Details Date Type Department Care Team (Latest Contact Info) Description 11/24/2022 9:00 AM CDT Ancillary Procedure [facility] Cardiology [facility] [phone] Second degree AV block Social History Tobacco Use Types Packs/Day Years Used Date Smoking Tobacco: Former Cigarettes Smokeless Tobacco: Never Comments:QUITE 35 YEARS AGO Alcohol Use Standard Drinks/Week Comments No 0 (1 standard drink = 0.6 oz pur e alcohol) Sex and Gender Information Value Date Recorded Sex Assigned at Not on file Legal Sex Male 10:31 PM 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 NORMAL DEVICE FUNCTION PROGRAMMED MEDICATIONS: Anti-coagulant(s): ??Aspirin 81 mg daily Anti-arrhythmic(s): ??None PLAN: 1) normal Biotronik Pacemaker evaluation 2) Biotronik remote transmission scheduled in 3 months. 3) Programming appropriate for device measurements Chucky Enriquez, RN Ruben Ashby MD CV CARDIAC SERVICES PROC EDURES Final Result documented in this encounter Visit Diagnoses Diagnosis Second degree AV block Other second degree atrioventricular block documented in this encounter Care Teams Electron Beam Photo Mask Maker Relationship Specialty [place] [address] [place] [address] PCP - General 12/25/14 03/21/24 documented as of this encounter
--- OUTSIDE RECORDS SUMMARY | 2024-07-10 20:00 | XMS_ITS | Encounter Summary ---
Author Organization [facility] Address [address] [place] [address] Care Team Providers Care Certified Pediatric Nurse Practitioner Name Role Phone Real Gao MD Primary Care Provider + Reason for Referral * Cardiology (Routine) - Canceled Specialty Diagnoses / Procedures Referred By Adelaida kamara Referred To Contact Diagnoses Cardiac pacemaker in situ Second degree AV block, Mobitz type II Procedures DEVICE CHECK - IN OFFICE Ruben Ashby MD [address] [place] [address] Phone: tel: fax: [facility] Referral ID Status Reason Start Date Expiration Date V isits Requested Visits Authorized [id number] Canceled 03/21/2024 04/20/2025 1 1 * Cardiology (Routine) - Canceled Specialty Diagnoses / Procedures Referred By [facility] Referred To Contact Diagnoses Cardiac pacemaker in situ Second degree AV block, Mobitz type II Procedures DEVICE CHECK - IN OFFICE Ruben Ashby MD [address] [place] [id number] Phone: tel: fax: [facility] Referral ID Status Reason Start Date Expiration Date V isits Requested Visits Authorized [id number] Canceled 03/21/2024 04/20/2025 1 1 * Cardiology (Routine) - Canceled Specialty Diagnoses / Procedures Referred By Contac t Referred To Contact Diagnoses Cardiac pacemaker in situ Second degree AV block, Mobitz type II Procedures DEVICE CHECK - IN OFFICE Ruben Ashby MD [address] [facility] [address] [place] [address] Phone: tel: fax: [facility] Referral ID Status Reason Start Date Expiration Date V isits Requested Visits Authorized [id number] Canceled 03/21/2024 04/20/2025 1 1 * Cardiology (Routine) - Authorized Specialty Diagnoses / Procedures Referred By Contac t Referred To Contact Cardiology Diagnoses Cardiac pacemaker in situ Second degree AV block, Mobitz type II Procedures DEVICE CHECK - REMOTE Ruben Ashby MD [address] [place] [address] Phone: tel: fax: [facility] Referral ID Status Reason Start Date Expiration Date V isits Requested Visits Authorized [id number] Authorized 03/21/2024 09/18/2025 1 1 * Cardiology (Routine) - Authorized Specialty Diagnoses / Procedures Referred By Contac t Referred To Contact Cardiology Diagnoses Cardiac pacemaker in situ Second degree AV block, Mobitz type II Procedures DEVICE CHECK - REMOTE Ruben Ashby MD [address] [facility] [address] [place] [address] Phone: tel: fax: [facility] Referral ID Status Reason Start Date Expiration Date V isits Requested Visits Authorized [id number] Authorized 03/21/2024 09/18/2025 1 1 * Cardiology (Routine) - Authorized Specialty Diagnoses / Procedures Referred By Contac t Referred To Contact Cardiology Diagnoses Cardiac pacemaker in situ Second degree AV block, Mobitz type II Procedures DEVICE CHECK - REMOTE Fleissner, Justice., MD [address] [address] Phone: tel: fax: [facility] Referral ID Status Reason Start Date Expiration Date V isits Requested Visits Authorized [id number] Authorized 03/21/2024 09/18/2025 1 1 Encounter Details Date Type Department Care Team (Late st Contact Info) Description 03/21/2024 Orders Only [facility] Cardiology [address] [phone] Ruben Ashby MD [address] [address] Cardiac pacemaker in situ (Primary Dx); Second [...] on file Legal Sex Male 10:31 PM FINANCIAL DATA 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 Gender Identity Not on file Sexual Orientation Not on file documented as of this encounter Plan of Treatment Scheduled Orders Name Type Priority Associated Diagnoses Orde r Schedule DEVICE CHECK - REMOTE Cardiac Services Routine Cardiac pacemaker in situ Second degree AV block, Mobitz type II Expected: 06/20/2024, Expires: 07/04/2030 DEVICE CHECK - REMOTE Cardiac Services Routine Cardiac pacemaker in situ Second degree AV block, Mobitz type II Expected: 09/19/2024, Expires: 07/04/2030 DEVICE CHECK - REMOTE Cardiac Services Routine Cardiac pacemaker in situ Second degree AV block, Mobitz type II Expected: 12/19/2024, Expires: 07/04/2030 DEVICE CHECK - IN OFFICE Cardiac Services Routine Cardiac pacemaker in situ Second degree AV block, Mobitz type II Expected: 03/21/2024, Expires: 07/11/2031 DEVICE CHECK - IN OFFICE Cardiac Services Routine Cardiac pacemaker in situ Second degree AV block, Mobitz type II Expected: 03/21/2024, Expires: 07/11/2031 DEVICE CHECK - IN OFFICE Cardiac Services Routine Cardiac pacemaker in situ Second degree AV block, Mobitz type II Expected: 03/21/2024, Expires: 07/11/2031 documented as of this encounter Visit Diagnoses Diagnosis Cardiac pacemaker in situ- Primary Second degree AV block, Mobitz type II Mobitz (type) II atrioventricular block documented in this encounter Care Teams Certified Pediatric Nurse Practitioner Relationship Specialty [place] [address] [facility] [place] [place] [address] PCP - General 12/25/14 03/21/24 documented as of this encounter
--- OUTSIDE RECORDS SUMMARY | 2024-07-10 20:00 | XMS_ITS | Encounter Summary ---
Author Organization [facility] Address [address] [address] Care Team Providers Care Laborer/Grade Check Name Role Phone Real Gao MD Primary Care Provider + Reason for Visit * Cardiology (Routine) - Closed Specialty Diagnoses / Procedures Referred By Adelaida kamara Referred To Contact Diagnoses Second degree AV block Procedures DEVICE CHECK - REMOTE Ruben Ashby MD [address] [address] Phone: tel: fax: [facility] Referral ID Status Reason Start Date Expiration Date Visits Re quested Visits Authorized [id number] Closed 2021 06/12/2022 1 1 Encounter Details Date Type Department Care Team (Latest Contact Info) Description 11/11/2021 8:30 AM CDT Ancillary Procedure [facility] Cardiology [address] [facility] [address] [place] [phone] Second degree AV block; Cardiac pacemaker in situ Social History Tobacco Use Types Packs/Day Years Used Date Smoking Tobacco: Former Smokeless Tobacco: Never Comments:QUITE 35 YEARS AGO Alcohol Use Standard Drinks/Week Comments No 0 (1 standard drink = 0.6 oz pur e alcohol) Sex and Gender Information Value Date Recorded Sex Assigned at Not on file Legal Sex Male 10:31 PM SIGNAL MAINTAINER Gender Identity Not on file Sexual Orientation Not on file documented as of this encounter Plan of Treatment Not on file documented as of this encounter Procedures Procedure Name Priority Date/Time Associated Diagnosis Comments DEVICE CHECK - REMOTE Routine 11/11/2021 4:35 PM CDT Second degree AV block documented in this encounter Results * DEVICE CHECK - REMOTE (11/11/2021 4:35 PM CDT) Anatomical Region Laterality Modality Other Narrative 12/23/2021 8:57 AM CDT Biotronik Dual Pacemaker. Dx; Second Degree AVB. DOI 11/26/2018-Symone. Biotronik remote monitoring, office checks Q1 yr. ? Routine Pacemaker remote. Normal device function. ?? Battery function-ok, 75% remaining battery life to CECILLE. Appropriate lead measurements. ?? Presenting rhythm-APVP. AP-11%, BINDERY HELPER-100%. ?? 1 atrial high rate episode noted on 08/13/21, iegm ATach, 20 second duration. See device attachment. No ventricular high rate episodes noted ?? Medications; Lisinopril, Zocor, ASA. See scanned report. Office pacemaker f/u 02/18/2022. Ruben Ashby MD CV CARDIAC SERVICES PROC EDURES Final Result documented in this encounter Visit Diagnoses Diagnosis Second degree AV block Other second degree atrioventricular block Cardiac pacemaker in situ documented in this encounter Care Teams Laborer/Grade Check Relationship Specialty [place] [address] [facility] [place] [address] PCP - General 12/25/14 03/21/24 documented as of this encounter
--- OUTSIDE RECORDS SUMMARY | 2024-07-10 20:00 | XMS_ITS | Encounter Summary ---
Author Organization [facility] Healthcare Address [address] [place] [address] Care Team Providers Care Transit Man Name Role Phone AlinJayson kahn DO Primary Care Provide r Reason for Visit * Cardiology (Routine) - Closed Specialty Diagnoses / Procedures Referred By Adelaida kamara Referred To Contact Diagnoses Second degree AV block Procedures DEVICE CHECK - IN OFFICE Ruben Ashby MD [address] [facility] [address] [address] Phone: tel: fax: [facility] Referral ID Status Reason Start Date Expiration Date Visits Re quested Visits Authorized [id number] Closed 05/26/2022 03/28/2024 1 1 Encounter Details Date Type Department Care Team (Latest Contact Info) Description 03/22/2024 2:30 PM CDT Ancillary Procedure [facility] Cardiology [address] [address] [place] [phone] Cardiac pacemaker in situ [Z95.0] (Primary Dx); Second degree AV block Social History Tobacco Use Types Packs/Day Years Used Date Smoking Tobacco: Former Cigarettes Q uit: 07/05/1982 Smokeless Tobacco: Never Comments:QUITE 35 YEARS AGO Alcohol Use Standard Drinks/Week Comments No 0 (1 standard drink = 0.6 oz pur e alcohol) Sex and Gender Information Value Date Recorded Sex Assigned at Not on file Legal 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 Appropriate lead measurements noted. Presenting rhythm- SALESPERSON BURIAL NEEDS. ??Underlying rhythm- complete heart block. ??No ventricular escape DDI 30 bpm. AP- 12 %, SALESPERSON BURIAL NEEDS- 100 %. ?? 2 Atrial high rate episodes noted, iegm's Atach, 28 second durations. No Ventricular high rate episodes noted. Medications; aspirin 81 mg. No programming changes made to device settings. See scanned report. Office device f/u 06/20/2025. ?? Biotronik remote f/u 06/27/2024. Karolina Butts, DOROTEO Ruben Ashby MD CV CARDIAC SERVICES PROC EDURES Final Result documented in this encounter Visit Diagnoses Diagnosis Cardiac pacemaker in situ [Z95.0]- Primary Cardiac pacemaker in situ Second degree AV block Other second degree atrioventricular block documented in this encounter Care Teams Transit Man Relationship Specialty Start Date End Date Jayson Ibarra DO [address] [place] [address] PCP - General Family Medicine 03/22/24 documented as of this encounter
--- OUTSIDE RECORDS SUMMARY | 2024-07-10 20:00 | XMS_ITS | Encounter Summary ---
Author Organization [facility] Address [address] [address] Care Team Providers Care Transistor Tester Name Role Phone Real Gao MD Primary Care Provider + Reason for Visit * Reason Comments Follow-up yearly follow up on 2nd degree AV block, pacemaker Encounter Details Date Type Department Care Team (Late st Contact Info) Description 03/18/2021 9:30 AM CDT Office Visit [facility] Cardiology [address] [facility] [address] [facility] [address] [place] [phone] Ruben Ashby MD [address] [facility] [address] [place] [address] Cardiac pacemaker in situ (Primary Dx); Second degree AV block, Mobitz type II; Lipid screening Social History Tobacco Use Types Packs/Day Years Used Date Smoking Tobacco: Former Smokeless Tobacco: Never Comments:QUITE 35 YEARS AGO Alcohol Use Standard Drinks/Week Comments No 0 (1 standard drink = 0.6 oz pur e alcohol) Sex and Gender Information Value Date Recorded Sex Assigned at Not on file Legal 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 Male 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 Gender Identity Not on file Sexual Orientation Not on file documented as of this encounter Last Filed Vital Signs Vital Sign Reading Time Taken Comments Blood Pressure 136/88 03/18/2021 9:24 AM CDT Pulse 85 03/18/2021 9:24 AM CDT Temperature - - Respiratory Rate - - Oxygen Saturation 96% 03/18/2021 9:24 AM CDT Inhaled Oxygen Concentration - - Weight 82.1 kg (181 lb) 03/18/2021 9:24 AM CDT Height 177.8 cm (5' 10 ) 03/18/2021 9:24 AM CDT Body Mass Index 25.97 03/18/2021 9:24 AM CDT documented in this encounter Progress Notes * Ruben Ashby MD - 03/18/2021 9:30 AM CDT [facility] UP 03/18/2021 Jose Alexandre is a 65 y.o. male who presents for follow up of second-degree AV block and previously implanted pacemaker. This is a patient that I saw in consultation at [facility] in November of 2018 after having 2 syncopal episodes at home. He was found to have second-degree AV block and trifascicular disease on his ECG. Following that presentation he received a Biotronik dual- chamber pacemaker uneventfully and returns today for follow-up. Past medical history was otherwise remarkable for hypertension and a history of focal focal glomerulosclerosis. The patient presents for scheduled annual follow-up today. He is doing very well and is totally asymptomatic he is very active in alf and does not experience any exertional symptoms. The pacemaker checks demonstrate the device is functioning normally. REVIEW OF SYSTEMS General ROS: negative for [...] and rash HOME MEDICATIONS Current Outpatient Medications: ??? albuterol HFA (PROVENTIL HFA,VENTOLIN HFA,PROAIR HFA) 90 mcg/actuation inhaler, as needed, Disp: , Rfl: ??? aspirin 81 mg enteric coated tablet, Take 81 mg by mouth daily, Disp: , Rfl: ??? cholecalciferol (VITAMIN D-3) 1000 unit tablet, Take 1,000 Units by mouth daily, Disp: , Rfl: ??? finasteride (PROSCAR) 5 mg tablet, 1 tablet daily, Disp: , Rfl: 3 ??? fluticasone (VERAMYST) 27.5 mcg/actuation nasal spray, Administer 2 sprays into each nostril once daily, Disp: , Rfl: ??? lisinopril (PRINIVIL,ZESTRIL) 10 mg tablet, 1 tablet daily, Disp: , Rfl: ??? simvastatin (ZOCOR) 20 mg tablet, 1 tablet nightly, Disp: , Rfl: ??? tamsulosin (FLOMAX) 0.4 mg extended release capsule, 1 capsule daily, Disp: , Rfl: 3 LABS AND OTHER DIAGNOSTIC TESTS No results found for: CHOL No results found for: HDL No results found for: LDLCALC No results found for: TRIG No results found for: CHOLHDL No results found for: WBC, HGB, HCT, MCV, PLT No lab exists for component: LABALBU PHYSICAL EXAM Vitals BP 136/88 (BP Location: Left arm, Patient Position: Sitting) Pulse 85 Ht 177.8 cm (5' 10 ) Wt 82.1 kg (181 lb) SpO2 96% BMI 25.97 kg/m?? Physical Examination: General appearance - alert, [...] Diagnoses and all orders for this visit: Cardiac pacemaker in situ Second degree AV block, Mobitz type II PLAN/RECOMMENDATIONS Continue annual follow-up visits with me in the office and routine follow-up in pacemaker Clinic aswell Ruben Ashby MD documented in this encounter Miscellaneous Notes * Addendum Note - Isela Lopez MA - 03/18/2021 9:30 AM CDTAddended by: ISELA LOPEZ on: 03/20/2021 12:20 PM Modules accepted: Orders documented in this encounter Plan of Treatment Not on file documented as of this encounter Procedures Procedure Name Priority Date/Time Associated Diagnosis Comments POCT LIPID PANEL Routine 03/18/2021 12:2 0 PM CDT Lipid screening documented in this encounter Results * POCT lipid panel (03/18/2021 12:20 PM CDT) Cholesterol, POC 138 mg/dL HDL, POC 39 mg/dL Triglycerides, POC 115 mg/dL LDL Cholesterol POC 76 mg/dL Chol/HDL Ratio, POC 3.6 Non-HDL Cholesterol, POC 99 mg/dL Cholesterol Total, POC 138 mg/dL Capillary blood 03/18/2021 1 2:20 PM CDT Ruben Ashby MD POINT OF CARE TEST ORDER SEUN Final Result documented in this encounter Visit Diagnoses Diagnosis Cardiac pacemaker in situ- Primary Second degree AV block, Mobitz type II Mobitz (type) II atrioventricular block Lipid screening Screening for lipoid disorders documented in this encounter Care Teams Transistor Tester Relationship Specialty [place] [id number] [address] PCP - General 12/25/14 03/21/24 documented as of this encounter
--- OUTSIDE RECORDS SUMMARY | 2024-07-10 20:00 | XMS_ITS | Encounter Summary ---
Author Organization [facility] Address [address] [place] [address] Phone Care Team Providers Care Lead Fire Protection Engineer Name Role Phone Real Gao MD Primary Care Provider + Reason for Visit * Reason Comments Follow-up F/U ear fullness Encounter Details Date Type Department Care Team (Late st Contact Info) Description 04/28/2023 10:00 AM CDT Office Visit [facility] [address] [place] [phone] Edmar Springer MD [address] [place] [phone] Sensation of fullness in both ears (Primary Dx) Social History Tobacco Use Types Packs/Day Years Used Date Smoking Tobacco: Former Cigarettes Q uit: 1983 Smokeless Tobacco: Never Tobacco Cessation:Counseling Given: Not Answered Comments:QUITE 35 YEARS AGO Alcohol Use Standard Drinks/Week Comments No 0 (1 standard drink = 0.6 oz pur e alcohol) Sex and Gender Information Value Date Recorded Sex Assigned at Not on file Legal Sex Male 10:31 PM SCANNING MANAGER Gender Identity Not on file Sexual Orientation Not on file documented as of this encounter Last Filed Vital Signs Vital Sign Reading Time Taken Comments Blood Pressure - - Pulse - - Temperature - - Respiratory Rate 18 04/28/2023 9:24 AM CDT Oxygen Saturation - - Inhaled Oxygen Concentration - - Weight 81.6 kg (180 lb) 04/28/2023 9:24 AM CDT Height 177.8 cm (5' 10 ) 04/28/2023 9:24 AM CDT Body Mass Index 25.83 04/28/2023 9:24 AM CDT documented in this encounter Progress Notes * Edmar Springer MD - 04/28/2023 10:00 AM CDT Jose Alexandre is a 67 y.o. male was seen in the office today. Primary care provider is Real Gao MD . Chief Complaint: Chief Complaint Patient presents with Follow-up F/U ear fullness HPI: He comes to clinic today for evaluation of Ear fullness. He states that he has a tendency to collect a lot of wax in his ears. He is had to have his ears cleaned before. He is getting ready to fly to [place] over the holidays and wanted to make sure his ears are clear. He typically does not have a lot of difficulty with his ears during flying. He is not having any pain. He thinks his hearingis generally okay although sometimes it is hard to understand what people are saying when there waslot of background noise.. I have reviewed past medical, surgical, family history as well as allergies and medications. Review of Systems Review of Systems Constitutional: Negative for chills, fever and unexpected weight change. HENT: Negative for drooling and facial swelling. Eyes: Negative for pain and discharge. Respiratory: Negative for wheezing and stridor. Cardiovascular: Negative for leg swelling. Gastrointestinal: Negative for diarrhea and vomiting. Endocrine: Negative for polydipsia. Genitourinary: Negative for flank pain. Musculoskeletal: Negative for myalgias. Skin: Negative for color change. Allergic/Immunologic: Negative for immunocompromised state. Neurological: Negative for tremors and seizures. Psychiatric/Behavioral: Negative for hallucinations and self-injury. Vital Signs: Resp 18 Ht 177.8 cm (5' 10 ) Wt 81.6 kg (180 lb) BMI 25.83 kg/m?? PHYSICAL EXAMINATION: GENERAL: Normal NEURO/PSYCH: Affect is normal. Alert and oriented. Extraocular muscles are intact. Cranial Nerves: Cranial nerves II-VII and IX-XII are intact and symmetric. HEAD/FACE: Normocephalic; atraumatic. No facial skin lesions. Facial strength is 5/5 and the face is symmetric. EARS : External ears have no skin lesions. Auricles are regularly set on the head. Hearing is grossly intact. Right: Normal canal. Tympanic membrane intact and mobile. Left: Normal canal. Tympanic membrane intact and mobile. NOSE: External nose has no skin lesions. Nasal dorsum is essentialy midline. Nasal septum is nonobstructive. Inferior and middle turbinates are normal size. No mucosal lesions or polyps are seen on either side. ORAL CAVITY/ OROPHARYNX: Skin of the lips is without lesions. Normal oral vestibule. Oral mucosa ismoist without lesions. Tongue and floor of mouth are without lesions or masses. Palate has no lesions and elevates symmetrically. Tonsils are negative. Oropharynx is clear without erythema or exudate. NECK: Trachea is midline. Thyroid is normal in size with no apparent nodules. Larynx: Base of tongue is symmetric without masses. Epiglottis is normal without edema or mass lesions. Hypopharynx is clear of masses including the pyriform sinuses. The false and true vocal cords are clear of masses. True vocal cords are mobile bilaterally. No paralysis. Salivary Glands: The submandibular glands are non-tender without masses. The parotid glands are non-tender without edema or masses. There is clear saliva flow from Stensen's and Cara's ducts bilaterally. LYMPHATIC: No cervical lymphadenopathy. MUSCULOSKELATAL: Ambulates without difficulty. Neck full range of motion. RESPIRATORY: Breathing comfortably without audible wheeze, stertor or stridor. PROCEDURE: ASSESSMENT & PLAN: Sensation of fullness in both ears His ear exam is essentially normal. I do not find any significant amount of wax accumulation or other problems. I talked with him about doing a hearing test but he declined for now indicating that he does not really notice much of a problem. He will follow-up if he has concerns about that however. Edmar Springer MD documented in this encounter Miscellaneous Notes * Assessment & Plan Note - Edmar Springer MD - 04/28/2023 9:56 AM CDT Associated Problem(s): Sensation of fullness in both ears His ear exam is essentially normal. I do not find any significant amount of wax accumulation or other problems. I talked with him about doing a hearing test but he declined for now indicating that he does not really notice much of a problem. He will follow-up if he has concerns about that however. documented in this encounter Plan of Treatment Not on file documented as of this encounter Visit Diagnoses Diagnosis Sensation of fullness in both ears- Primary documented in this encounter Additional Health Concerns Infection Onset Date Last Indicated Resolved Time COVID: Recovered Comment:Added based on recent COVID infection. 03/26/2023 04/28/2023 06/24/2023 3:[address] documented as of this encounter Care Teams Lead Fire Protection Engineer Relationship Specialty [place] [address] [facility] [place] [address] PCP - General 12/25/14 03/21/24 documented as of this encounter
--- OUTSIDE RECORDS SUMMARY | 2024-07-10 20:00 | XMS_ITS | Encounter Summary ---
Author Organization [facility] Address [address] [place] [address] Care Team Providers Care Cattle Care Worker Name Role Phone Real Gao MD Primary Care Provider + Reason for Visit * Cardiology (Routine) - Closed Specialty Diagnoses / Procedures [facility] Referred To Contact Diagnoses Second degree AV block, Mobitz type II Procedures DEVICE CHECK - REMOTE Ruben Ashby MD [address] [facility] [address] [place] [id number] Phone: tel: fax: Referral ID Status Reason Start Date Expiration Date Visits Re quested Visits Authorized [id number] Closed 06/04/2023 12/03/2024 1 1 Encounter Details Date Type Department Care Team (Latest Contact Info) Description 09/08/2023 7:00 AM BEAM DYER OPERATOR Ancillary Procedure [facility] Cardiology [address] [place] [phone] Cardiac pacemaker in situ [Z95.0] (Primary [...] on file Legal Sex Male 10:31 PM BEAM DYER OPERATOR Gender Identity Not on file Sexual Orientation Not on file documented as of this encounter Plan of Treatment Not on file documented as of this encounter Procedures Procedure Name Priority Date/Time Associated Diagnosis Comments DEVICE CHECK - REMOTE Routine 09/08/2023 11:45 AM BEAM DYER OPERATOR Second degree AV block, Mobitz type II documented in this encounter Results * DEVICE CHECK - REMOTE (09/08/2023 11:45 AM BEAM DYER OPERATOR) Anatomical Region Laterality Modality Other Narrative 12/14/2023 8:45 AM CDT Biotronik Dual Pacemaker. Dx; Second Degree AVB. DOI 11/26/2018-Symone. Biotronik remote monitoring, office checks Q1 yr. Routine DDD Pacemaker remote. Normal device function. Battery function-Ok, 60% remaining battery life to CECILLE. Appropriate lead measurements noted. Presenting rhythm:-PAROLE OR PROBATION OFFICER. AP-10%, PAROLE OR PROBATION OFFICER-100%. No atrial high rate episodes noted. ? No ventricular high rate episodes noted Medications; Zocor, ASA. See scanned report. Biotronik remote f/u 12/09/2023. Karolina Butts, RN us Ruben Ashby MD [facility] PROC EDURES Final Result documented in this encounter Visit Diagnoses Diagnosis Cardiac pacemaker in situ [Z95.0]- Primary Cardiac pacemaker in situ Second degree AV block, Mobitz type II Mobitz (type) II atrioventricular block documented in this encounter Care Teams Cattle Care Worker Relationship Specialty [place] [address] [facility] [address] PCP - General 12/25/14 03/21/24 documented as of this encounter
--- OUTSIDE RECORDS SUMMARY | 2024-07-10 20:00 | XMS_ITS | Encounter Summary ---
Author Organization [facility] Address [address] [address] Care Team Providers Care Bicycle Messenger Name Role Phone Real Gao MD Primary Care Provider + Reason for Referral * Cardiology (Routine) - Closed Specialty Diagnoses / Procedures Referred By Contac t Referred To Contact Diagnoses Second degree AV block Procedures DEVICE CHECK - REMOTE Ruben Ashby MD [address] [place] [address] Phone: tel: fax: [facility] Referral ID Status Reason Start Date Expiration Date Visits Re quested Visits Authorized [id number] Closed 2021 06/12/2022 1 1 S COMMISSIONS ANALYST * Cardiology (Routine) - Closed Specialty Diagnoses / Procedures Referred By Contac t Referred To Contact Diagnoses Second degree AV block Procedures DEVICE CHECK - REMOTE Ruben Ashby MD [address] [place] [address] Phone: tel: fax: [facility] Referral ID Status Reason Start Date Expiration Date Visits Re quested Visits Authorized [id number] Closed 2021 06/12/2022 1 1 S COMMISSIONS ANALYST * Cardiology (Routine) - Closed Specialty Diagnoses / Procedures Referred By Contac t Referred To Contact Diagnoses Second degree AV block Procedures DEVICE CHECK - REMOTE Ruben Ashby MD [address] [address] Phone: tel: fax: [facility] Referral ID Status Reason Start Date Expiration Date Visits Re quested Visits Authorized [id number] Closed 2021 06/12/2022 1 1 S COMMISSIONS ANALYST Encounter Details Date Type Department Care Team (Late st Contact Info) Description 2021 Orders Only [facility] Cardiology [address] [place] [phone] Ruben Ashby MD [address] [address] Second degree AV block (Primary Dx) Social History Tobacco Use Types Packs/Day Years Used Date Smoking Tobacco: Former Smokeless Tobacco: Never Comments:QUITE 35 YEARS AGO Alcohol Use Standard Drinks/Week Comments No 0 (1 standard drink = 0.6 oz pur e alcohol) Sex and Gender Information Value Date Recorded Sex Assigned at Not on file Legal Sex Male 10:31 PM SALES COMMISSIONS ANALYST Gender Identity Not on file Sexual Orientation Not on file documented as of this encounter Plan of Treatment Not on file documented as of this encounter Results * DEVICE CHECK - REMOTE (02/20/2022 8:36 AM CDT) Anatomical Region Laterality Modality Other Narrative 03/06/2022 3:34 PM CDT Biotronik Dual Pacemaker. Dx; Second Degree AVB. DOI 11/26/2018-Symone. [employer] remote monitoring, office checks Q1 yr. Office pacemaker interrogation performed by [employer] company real estate representative. Battery function-Ok, 75% remaining battery to CECILLE. AP-13%, INTELLIGENCE RESEARCH SPECIALIST-100%. Appropriate lead measurements. See scanned report. [employer] remote f/u 05/26/2022. [03/05/2022 3:32:38 PM - PRISCA ARITA] Ruben Ashby MD [facility] C[facility] SERVICES PROC EDURES Final Result * DEVICE CHECK - REMOTE (11/11/2021 4:35 PM CDT) Anatomical Region Laterality Modality Other Narrative 12/23/2021 8:57 AM CDT Biotronik Dual Pacemaker. Dx; Second Degree AVB. DOI 11/26/2018-Symone. Biotronik remote monitoring, office checks Q1 yr. ? Routine Pacemaker remote. Normal device function. ?? Battery function-ok, 75% remaining battery life to CECILLE. Appropriate lead measurements. ?? Presenting rhythm-APVP. AP-11%, INTELLIGENCE RESEARCH SPECIALIST-100%. ?? 1 atrial high rate episode noted on 08/13/21, iegm ATach, 20 second duration. See device attachment. No ventricular high rate episodes noted ?? Medications; Lisinopril, Zocor, ASA. See scanned report. Office pacemaker f/u 02/18/2022. Ruben Ashby MD [facility] CARDI[facility] SERVICES PROC EDURES Final Result * DEVICE CHECK - REMOTE (08/12/2021 4:23 PM SALES COMMISSIONS ANALYST) Anatomical Region Laterality Modality Other Narrative 09/29/2021 2:20 PM CDT Biotronik Dual Pacemaker. Dx; Second Degree AVB. DOI 11/26/2018-Symone. Biotronik remote monitoring, office checks Q1 yr. ? Routine Pacemaker remote. Normal device function. Battery function-ok, 75% remaining battery life to CECILLE. Appropriate lead measurements. ?? Presenting rhythm-ASVP. AP-12%, INTELLIGENCE RESEARCH SPECIALIST-100%. ?? No atrial high rate episodes noted. [...] degree atrioventricular block Cardiac pacemaker in situ Second degree AV block Other second degree atrioventricular block Cardiac pacemaker in situ Second degree AV block Other second degree atrioventricular block Cardiac pacemaker in situ documented in this encounter Care Teams Bicycle Messenger Relationship Specialty [place] [address] [facility] [address] [place] [address] PCP - General 12/25/14 03/21/24 documented as of this encounter
--- OUTSIDE RECORDS SUMMARY | 2024-07-10 20:00 | XMS_ITS | Encounter Summary ---
Author Organization [facility] Address [address] [facility] [address] [place] [address] Care Team Providers Care Lead Systems Architect Name Role Phone Real Gao MD Primary Care Provider + Reason for Visit * Reason Comments Follow-up 1 year fu Encounter Details Date Type Department Care Team (Late st Contact Info) Description 03/24/2022 9:30 AM CDT Office Visit [facility] Cardiology [address] [facility] [address] [place] [phone] Ruben Ashby MD [address] [facility] [address] [place] [address] Cardiac pacemaker in situ (Primary Dx); Second degree AV block, Mobitz type II Social History Tobacco Use Types Packs/Day Years Used Date Smoking Tobacco: Former Cigarettes Smokeless Tobacco: Never Tobacco Cessation:Counseling Given: Not Answered Comments:QUITE 35 YEARS AGO Alcohol Use Standard Drinks/Week Comments No 0 (1 standard drink = 0.6 oz pur e alcohol) Sex and Gender Information Value Date Recorded Sex Assigned at Not on file Legal Sex Male 10:31 PM REPORTING MANAGER Gender Identity Not on file Sexual Orientation Not on file documented as of this encounter Last Filed Vital Signs Vital Sign Reading Time Taken Comments Blood Pressure 116/72 03/24/2022 9:20 AM CDT Pulse 76 03/24/2022 9:20 AM CDT Temperature - - Respiratory Rate - - Oxygen Saturation 96% 03/24/2022 9:20 AM CDT Inhaled Oxygen Concentration - - Weight 80.7 kg (178 lb) 03/24/2022 9:20 AM CDT Height 177.8 cm (5' 10 ) 03/24/2022 9:20 AM CDT Body Mass Index 25.54 03/24/2022 9:20 AM CDT documented in this encounter Progress Notes * Ruben Ashby MD - 03/24/2022 9:30 AM CDT [facility] UP 03/24/2022 Jose Alexandre is a 66 y.o. male who presents for follow up of second-degree AV block and previously implanted pacemaker. This is a patient that I saw in consultation at [facility] in November of 2018 after having 2 syncopal episodes at home. He was found to have second-degree AV block and trifascicular disease on his ECG. Following that presentation he received a Biotronik dual- chamber pacemaker uneventfully and returns today for follow-up. Past medical history was otherwise remarkable for hypertension and a history of focal focal glomerulosclerosis. He presents today for annual follow-up. His chart was reviewed his pacemaker checks look fine his device is functioning normally. He has no cardiovascular complaints or concerns. He says he has beenin good health and has not had any significant medical problems since his appointment last year. REVIEW OF SYSTEMS General ROS: negative for [...] mg by mouth daily, Disp: , Rfl: cholecalciferol (VITAMIN D-3) 1000 unit tablet, Take 1,000 Units by mouth daily, Disp: , Rfl: finasteride (PROSCAR) 5 mg tablet, 1 tablet daily, Disp: , Rfl: 3 fluticasone (VERAMYST) 27.5 mcg/actuation nasal spray, Administer 2 sprays into each nostril once daily, Disp: , Rfl: lisinopril (PRINIVIL,ZESTRIL) 10 mg tablet, 1 tablet daily, Disp: , Rfl: simvastatin (ZOCOR) 20 mg tablet, 1 tablet nightly, Disp: , Rfl: tamsulosin (FLOMAX) 0.4 [...] for component: LABALBU PHYSICAL EXAM Vitals BP 116/72 (BP Location: Right arm, Patient Position: Sitting) Pulse 76 Ht 177.8 cm (5' 10 ) Wt 80.7 kg (178 lb) SpO2 96% BMI 25.54 kg/m?? Physical Examination: General appearance - alert, [...] Ruben Ashby MD documented in this encounter Plan of Treatment Not on file documented as of this encounter Visit Diagnoses Diagnosis Cardiac pacemaker in situ- Primary Second degree AV block, Mobitz type II Mobitz (type) II atrioventricular block documented in this encounter Care Teams Lead Systems Architect Relationship Specialty [place] [address] [facility] [place] [address] PCP - General 12/25/14 03/21/24 documented as of this encounter
--- OUTSIDE RECORDS SUMMARY | 2024-07-10 20:00 | XMS_ITS | Encounter Summary ---
Author Organization [facility] Address [address] [facility] [address] [place] [address] Care Team Providers Care Lye Machine Operator Name Role Phone Real Gao MD Primary Care Provider + Reason for Visit * (Routine) - Closed Specialty Diagnoses / Procedures Referred By Adelaida chambers Referred To Contact Diagnoses Second degree AV block Cardiac pacemaker in situ Procedures DEVICE CHECK - IN OFFICE Ruben Ashby MD [address] [address] Phone: tel: fax: [facility] Referral ID Status Reason Start Date Expiration Date Visits Re quested Visits Authorized [id number] Closed 01/17/2020 07/28/2021 1 1 Encounter Details Date Type Department Care Team (Latest Contact Info) Description 02/05/2021 8:30 AM CDT Ancillary Procedure [facility] Medical [facility] Cardiology [address] [phone] Second degree AV block; Cardiac pacemaker in situ Social History Tobacco Use Types Packs/Day Years Used Date Smoking Tobacco: Never Smokeless Tobacco: Never Comments:QUITE 35 YEARS AGO Alcohol Use Standard Drinks/Week Comments No 0 (1 standard drink = 0.6 oz pur e alcohol) Sex and Gender Information Value Date Recorded Sex Assigned at Not on file Legal Sex Male 10:31 PM CREDIT ADMINISTRATION OFFICER Gender Identity Not on file Sexual Orientation Not on file documented as of this encounter Plan of Treatment Not on file documented as of this encounter Procedures Procedure Name Priority Date/Time Associated Diagnosis Comments DEVICE CHECK - IN OFFICE Routine 02/05/2021 8:14 AM CDT Second degree AV block Cardiac pacemaker in situ documented in this encounter Results * DEVICE CHECK - IN OFFICE (02/05/2021 8:14 AM CDT) Anatomical Region Laterality Modality Other Narrative 02/25/2021 1:23 PM CDT Biotronik Dual Pacemaker. Dx; Second Degree AVB. DOI 11/26/2018-Symone. Biotronik remote monitoring, office checks Q1 yr. Office pacemaker evaluation demonstrated normal device function. Battery function-Ok, 8 years 3 months remaining battery life to CECILLE. Presenting rhythm-ASVP. Underlying rhythm-CHB without ventricular escape @ DDI 30 bpm.. AP-13%, DISTRICT SUPERVISOR-100%. 23 mode switch episodes recorded, longest duration 2 min, iegm's ATach. No ventricular arrhythmias noted. No programming changes made to device settings. See scanned report. Solar Flow-Throughronik remote f/u 2021. ?? us Ruben Ashby MD CV CARDIAC SERVICES PROC EDURES Final Result documented in this encounter Visit Diagnoses Diagnosis Second degree AV block Other second degree atrioventricular block Cardiac pacemaker in situ documented in this encounter Care Teams Lye Machine Operator Relationship Specialty [place] [address] [facility] [address] PCP - General 12/25/14 03/21/24 documented as of this encounter
--- OUTSIDE RECORDS SUMMARY | 2024-07-10 20:00 | XMS_ITS | Encounter Summary ---
Author Organization [facility] Address [address] [place] [address] Care Team Providers Care Electric Truck Driver Name Role Phone Real Gao MD Primary Care Provider + Reason for Visit * Cardiology (Routine) - Closed Specialty Diagnoses / Procedures Referred By Adelaida chambers Referred To Contact Diagnoses Second degree AV block Procedures DEVICE CHECK - REMOTE Ruben Ashby MD [address] [facility] [address] [address] Phone: tel: fax: [facility] Referral ID Status Reason Start Date Expiration Date Visits Re quested Visits Authorized [id number] Closed 05/26/2022 11/24/2023 1 1 Encounter Details Date Type Department Care Team (Latest Contact Info) Description 06/04/2023 7:15 AM FIRE CHIEF'S AIDE Ancillary Procedure [facility] Cardiology [address] [place] [phone] Cardiac pacemaker in situ [Z95.0] (Primary [...] on file Legal Sex Male 10:31 PM FIRE CHIEF'S AIDE Gender Identity Not on file Sexual Orientation Not on file documented as of this encounter Plan of Treatment Not on file documented as of this encounter Procedures Procedure Name Priority Date/Time Associated Diagnosis Comments DEVICE CHECK - REMOTE Routine 06/04/2023 9:41 AM FIRE CHIEF'S AIDE Second degree AV block documented in this encounter Results * DEVICE CHECK - REMOTE (06/04/2023 9:41 AM FIRE CHIEF'S AIDE) Anatomical Region Laterality Modality Other Narrative 07/21/2023 8:37 AM FIRE CHIEF'S AIDE Biotronik Dual Pacemaker. Dx; Second Degree AVB. DOI 11/26/2018-Symone. Biotronik remote monitoring, office checks Q1 yr. Routine DDD Pacemaker remote. Normal device function. Battery function-Ok, 65% remaining battery life to CECILLE. Appropriate lead measurements noted. Presenting eryvhv-HA-NB. AP-11%, SUGAR MIXER-100%. 1 atrial high rate episode noted, 28 second duration, iegm Atach. ?? No ventricular high rate episodes noted Medications; Zocor, ASA. See scanned report. Biotronik remote f/u 09/08/2023. Karolina Butts, RN Ruben Ashby MD CV CARDIAC SERVICES PROC EDURES Final Result documented in this encounter Visit Diagnoses Diagnosis Cardiac pacemaker in situ [Z95.0]- Primary Cardiac pacemaker in situ Second degree AV block Other second degree atrioventricular block documented in this encounter Additional Health Concerns Infection Onset Date Last Indicated Resolved Time COVID: Recovered Comment:Added based on recent COVID infection. 03/26/2023 04/28/2023 06/24/2023 3:[address] documented as of this encounter Care Teams Electric Truck Driver Relationship Specialty [place] [id number] [facility] [place] [address] PCP - General 12/25/14 03/21/24 documented as of this encounter
--- OUTSIDE RECORDS SUMMARY | 2024-07-10 20:00 | XMS_ITS | Encounter Summary ---
Author Organization [facility] Address [address] [address] Care Team Providers Care Pastoral Ministries Professor Name Role Phone Real Gao MD Primary Care Provider + Reason for Visit * Cardiology (Routine) - Closed Specialty Diagnoses / Procedures Referred By Adelaida kamara Referred To Contact Diagnoses Second degree AV block Procedures DEVICE CHECK - REMOTE Ruben Ashby MD [address] [address] Phone: tel: fax: [facility] Referral ID Status Reason Start Date Expiration Date Visits Re quested Visits Authorized [id number] Closed 08/12/2021 02/09/2023 1 1 Encounter Details Date Type Department Care Team (Latest Contact Info) Description 05/26/2022 8:30 AM PIPING SUPERVISOR Ancillary Procedure [facility] Cardiology [facility] [address] [place] [phone] Second degree AV block; Cardiac pacemaker in situ Social History Tobacco Use Types Packs/Day Years Used Date Smoking Tobacco: Former Cigarettes Smokeless Tobacco: Never Comments:QUITE 35 YEARS AGO Alcohol Use Standard Drinks/Week Comments No 0 (1 standard drink = 0.6 oz pur e alcohol) Sex and Gender Information Value Date Recorded Sex Assigned at Not on file Legal Sex Male 10:31 PM PIPING SUPERVISOR Gender Identity Not on file Sexual Orientation Not on file documented as of this encounter Plan of Treatment Not on file documented as of this encounter Procedures Procedure Name Priority Date/Time Associated Diagnosis Comments DEVICE CHECK - REMOTE Routine 05/26/2022 1:48 PM PIPING SUPERVISOR Second degree AV block documented in this encounter Results * DEVICE CHECK - REMOTE (05/26/2022 1:48 PM PIPING SUPERVISOR) Anatomical Region Laterality Modality Other Narrative 07/21/2022 10:36 AM PIPING SUPERVISOR Biotronik Dual Pacemaker. Dx; Second Degree AVB. DOI 11/26/2018-Symone. Biotronik remote monitoring, office checks Q1 yr. Routine Pacemaker remote. Normal device function. Battery function-Ok, 70% remaining battery life to CECILLE. Appropriate lead measurements. Presenting rhythm-ASVP. AP-6%, PLANT PROTECTION SUPERVISOR-100%. No atrial high rate episodes noted. ?? No ventricular high rate episodes noted Medications; Lisinopril, Zocor, ASA. See scanned report. Biotronik remote f/u 08/25/2022. us Ruben Ashby MD CV CARDIAC SERVICES PROC EDURES Final Result documented in this encounter Visit Diagnoses Diagnosis Second degree AV block Other second degree atrioventricular block Cardiac pacemaker in situ documented in this encounter Care Teams Pastoral Ministries Professor Relationship Specialty [place] [address] [address] [place] [address] PCP - General 12/25/14 03/21/24 documented as of this encounter
--- OUTSIDE RECORDS SUMMARY | 2024-07-10 20:01 | XMS_ITS | Encounter Summary ---
Author Organization [facility] Address [address] [facility] [address] [place] [address] Care Team Providers Care Personal Care Home Administrator Name Role Phone Real Gao MD Primary Care Provider + Reason for Visit * Reason Comments Follow-up 6 mo fu av, pacer Encounter Details Date Type Department Care Team (Late st Contact Info) Description 08/24/2019 11:00 AM ETCHED CIRCUIT PROCESSOR Office Visit [facility] Cardiology [address] [facility] [address] [place] [phone] Ruben Ashby MD [address] [facility] [address] [place] [address] Second degree AV block, Mobitz type II (Primary Dx); Cardiac pacemaker in situ Social History Tobacco Use Types Packs/Day Years Used Date Smoking Tobacco: Never Smokeless Tobacco: Never Comments:QUITE 35 YEARS AGO Alcohol Use Standard Drinks/Week Comments No 0 (1 standard drink = 0.6 oz pur e alcohol) Sex and Gender Information Value Date Recorded Sex Assigned at Not on file Legal Sex Male 10:31 PM ETCHED CIRCUIT PROCESSOR Gender Identity Not on file Sexual Orientation Not on file documented as of this encounter Last Filed Vital Signs Vital Sign Reading Time Taken Comments Blood Pressure 122/60 08/24/2019 11:00 AM ETCHED CIRCUIT PROCESSOR Pulse 81 08/24/2019 11:00 AM ETCHED CIRCUIT PROCESSOR Temperature - - Respiratory Rate - - Oxygen Saturation 97% 08/24/2019 11:00 AM ETCHED CIRCUIT PROCESSOR Inhaled Oxygen Concentration - - Weight 84.4 kg (186 lb) 08/24/2019 11:00 AM ETCHED CIRCUIT PROCESSOR Height 177.8 cm (5' 10 ) 08/24/2019 11:00 AM ETCHED CIRCUIT PROCESSOR Body Mass Index 26.69 08/24/2019 11:00 AM ETCHED CIRCUIT PROCESSOR documented in this encounter Progress Notes * Ruben Ashby MD - 08/24/2019 11:00 AM CST [facility] FOLLOW UP 08/24/2019 Jose Alexandre is a 64 y.o. male who presents for follow up of second-degree AV block and recently implanted pacemaker. This is a patient that I saw in consultation at [facility] in November of 2018 after having 2 syncopal episodes at home. He was found to have second-degree AV block and trifascicular disease on his ECG. Following that presentation he received a Biotronik dual- chamber pacemaker uneventfully and returns today for follow-up. Past medical history was otherwise remarkable for hypertension and a history of focal focal glomerulosclerosis. He presents today for scheduled six-month office visit. He feels great and has no complaints at all. The patient was saying that his next appointment to see Maria Guadalupe Leonard for a pacemaker check falls in Decemberand he is planning on being out of town. They were asking if they can push the appointment back in to January and I told him I could not see any problem with that at all. His device is less than a year old and is functioning normally. REVIEW OF SYSTEMS General [...] for component: LABALBU PHYSICAL EXAM Vitals BP 122/60 (BP Location: Left arm, Patient Position: Sitting) Pulse 81 Ht 177.8 cm (5' 10 ) Wt 84.4 kg (186 lb) SpO2 97% BMI 26.69 kg/m?? Physical Examination: General appearance - alert, [...] type II Cardiac pacemaker in situ PLAN/RECOMMENDATIONS Follow-up with me in 6 months Continue follow-up in pacemaker Clinic as scheduled Ruben Ashby MD ED CIRCUIT PROCESSOR documented in this encounter Plan of Treatment Not on file documented as of this encounter Visit Diagnoses Diagnosis Second degree AV block, Mobitz type II- Primary Mobitz (type) II atrioventricular block Cardiac pacemaker in situ documented in this encounter Discontinued Medications Medication Sig Discontinue Reason Start Date End Da te rivaroxaban (XARELTO) 20 mg tablet Take 1 tablet (20 mg total) by mouth daily Therapy completed 12/02/2018 08/24/2019 documented as of this encounter Historical Medications * This list may reflect changes made after this encounter. fluticasone (VERAMYST) 27.5 mcg/actuation nasal sprayIndications :Allergic Rhinitis Administer 2 sprays into each nostril once daily aspirin 81 mg enteric coated tablet Take 1 tablet (81 mg total) by mouth daily albuterol HFA (PROVENTIL HFA,VENTOLIN HFA,PROAIR HFA) 90 mcg/actuation inhaler as needed 08/22/2019 cholecalciferol (VITAMIN D-3) 1000 unit tablet Take 1 tablet (1,000 Units total) by mouth daily lisinopril (PRINIVIL,ZESTRI L) 10 mg tablet 1 tablet daily 06/09/201903/16 3 added in this encounter Care Teams Personal Care Home Administrator Relationship Specialty [place] [address] [facility] [place] [address] PCP - General 12/25/14 03/21/24 documented as of this encounter
--- OUTSIDE RECORDS SUMMARY | 2024-07-10 20:01 | XMS_ITS | Encounter Summary ---
Author Organization [facility] Address [address] [place] [address] Care Team Providers Care Financial Intern Name Role Phone Real Gao MD Primary Care Provider + Reason for Visit * (Routine) - Closed Specialty Diagnoses / Procedures Referred By Adelaida kamara Referred To Contact Diagnoses Second degree AV block Procedures DEVICE CHECK - REMOTE Ruben Ashby MD Phone: tel: fax: [facility] Referral ID Status Reason Start Date Expiration Date Visits Re quested Visits Authorized [id number] Closed 12/28/2018 07/08/2020 1 1 Encounter Details Date Type Department Care Team (Latest Contact Info) Description 04/04/2019 7:15 AM CDT Ancillary Procedure [facility] Medical [facility] Cardiology [address] [place] [phone] Second degree AV block; Cardiac pacemaker in situ Social History Tobacco Use Types Packs/Day Years Used Date Smoking Tobacco: Never Smokeless Tobacco: Never Comments:QUITE 35 YEARS AGO Alcohol Use Standard Drinks/Week Comments No 0 (1 standard drink = 0.6 oz pur e alcohol) Sex and Gender Information Value Date Recorded Sex Assigned at Not on file Legal Sex Male 10:31 PM SENIOR TECHNICAL SPECIALIST Gender Identity Not on file Sexual Orientation Not on file documented as of this encounter Plan of Treatment Pending Results Name Type Priority Associated Diagnoses Date /Time DEVICE CHECK - REMOTE Cardiac Services Routine Second degree AV block 04/04/2019 8:55 AM CDT documented as of this encounter Visit Diagnoses Diagnosis Second degree AV block Other second degree atrioventricular block Cardiac pacemaker in situ documented in this encounter Care Teams Financial Intern Relationship Specialty [place] [address] [address] PCP - General 12/25/14 03/21/24 documented as of this encounter
--- OUTSIDE RECORDS SUMMARY | 2024-07-10 20:01 | XMS_ITS | Encounter Summary ---
Author Organization [facility] Address [address] [address] Care Team Providers Care Life Skills Teacher Name Role Phone Real Gao MD Primary Care Provider + Reason for Referral * (Routine) - Closed Specialty Diagnoses / Procedures Referred By Contnathaniel t Referred To Contact Diagnoses Second degree AV block Procedures DEVICE CHECK - REMOTE Ruben Ashby MD [address] [place] [address] Phone: tel: fax: [facility] Referral ID Status Reason Start Date Expiration Date Visits Re quested Visits Authorized [id number] Closed 04/23/2020 05/23/2021 1 1 * (Routine) - Closed Specialty Diagnoses / Procedures Referred By Contac t Referred To Contact Diagnoses Second degree AV block Procedures DEVICE CHECK - REMOTE Ruben Ashby MD [address] [place] [address] Phone: tel: fax: [facility] Referral ID Status Reason Start Date Expiration Date Visits Re quested Visits Authorized [id number] Closed 04/23/2020 05/23/2021 1 1 * (Routine) - Closed Specialty Diagnoses / Procedures Referred By Contac t Referred To Contact Diagnoses Second degree AV block Procedures DEVICE CHECK - REMOTE Ruben Ashby MD [address] [address] Phone: tel: fax: [facility] Referral ID Status Reason Start Date Expiration Date Visits Re quested Visits Authorized [id number] Closed 04/23/2020 05/23/2021 1 1 Encounter Details Date Type Department Care Team (Late st Contact Info) Description 04/23/2020 Orders Only [facility] Cardiology [address] [place] [phone] Ruben Ashby MD [address] [address] Second degree AV block (Primary Dx) Social History Tobacco Use Types Packs/Day Years Used Date Smoking Tobacco: Never Smokeless Tobacco: Never Comments:QUITE 35 YEARS AGO Alcohol Use Standard Drinks/Week Comments No 0 (1 standard drink = 0.6 oz pur e alcohol) Sex and Gender Information Value Date Recorded Sex Assigned at Not on file Legal Sex Male 10:31 PM FIRE SPRINKLER SERVICE TECHNICIAN Gender Identity Not on file Sexual Orientation Not on file documented as of this encounter Plan of Treatment Not on file documented as of this encounter Results * DEVICE CHECK - REMOTE (2021 1:39 PM FIRE SPRINKLER SERVICE TECHNICIAN) Anatomical Region Laterality Modality Other Narrative 06/19/2021 9:56 AM FIRE SPRINKLER SERVICE TECHNICIAN Biotronik Dual Pacemaker. Dx; Second Degree AVB. DOI 11/26/2018-Symone. Biotronik remote monitoring, office checks Q1 yr. ? Routine Pacemaker remote. Normal device function. Battery function-ok, 80% remaining battery life to CECILLE. Appropriate lead measurements. Presenting rhythm-ASVP. AP-15%, REGIONAL CRA-100%. No atrial high rate episodes noted. No ventricular high rate episodes noted Medications; Lisinopril, Zocor, ASA. See scanned report. Biotronik remote f/u 08/12/2021. Ruben Ashby MD CV CARDIAC SERVICES PROC EDURES Final Result * DEVICE CHECK - REMOTE (10/22/2020 10:31 AM CDT) Anatomical Region Laterality Modality Other Narrative 12/19/2020 12:19 PM CDT Biotronik Dual Pacemaker. Dx; Second Degree AVB. DOI 11/26/2018-Symone. Biotronik remote monitoring, office checks Q1 yr. Routine Pacemaker remote. Normal device function. Battery function-ok, 85% estimated remaining longevity. Appropriate lead measurements. Presenting rhythm-ASVP. AP-12%, REGIONAL CRA-100%. No atrial high rate episodes noted. No ventricular high rate episodes noted Medications; Lisinopril, Zocor, ASA. See scanned report. Office pacemaker f/u 02/05/2021. Ruben Ashby MD CV CARDIAC SERVICES PROC EDURES Final Result * DEVICE CHECK - REMOTE (07/23/2020 11:20 AM FIRE SPRINKLER SERVICE TECHNICIAN) Anatomical Region Laterality Modality Other Narrative 08/30/2020 7:44 AM FIRE SPRINKLER SERVICE TECHNICIAN Biotronik Dual Pacemaker. Dx; Second Degree AVB. DOI 11/26/2018-Symone. Biotronik remote monitoring, office checks Q1 yr. ? Routine Pacemaker remote. Normal device function. Battery function-ok, 85% estimated remaining longevity. Appropriate lead measurements. Presenting rhythm-ASVP. AP-11%, REGIONAL CRA-100%. No atrial high rate episodes noted. No ventricular high rate episodes noted Medications; Lisinopril, Zocor, ASA. See scanned report. Biotronik remote f/u 10/22/2020. Office pacemaker f/u 02/19/2021. ?? Ruben Ashby MD CV CARDIAC SERVICES PROC [...] situ documented in this encounter Care Teams Life Skills Teacher Relationship Specialty [place] [address] [address] PCP - General 12/25/14 03/21/24 documented as of this encounter
--- OUTSIDE RECORDS SUMMARY | 2024-07-10 20:01 | XMS_ITS | Encounter Summary ---
Author Organization [facility] Address [address] [address] Care Team Providers Care Operating Room Rn Name Role Phone Real Gao MD Primary Care Provider + Reason for Visit * (Routine) - Closed Specialty Diagnoses / Procedures Referred By Adelaida kamara Referred To Contact Diagnoses Second degree AV block Procedures DEVICE CHECK - REMOTE Ruben Ashby MD Phone: tel: fax: [facility] Referral ID Status Reason Start Date Expiration Date Visits Re quested Visits Authorized [id number] Closed 12/28/2018 07/08/2020 1 1 Encounter Details Date Type Department Care Team (Latest Contact Info) Description 07/11/2019 7:45 AM GASSER MACHINE OPERATOR Ancillary Procedure [facility] Medical [facility] Cardiology [facility] [phone] Second degree AV block; Cardiac pacemaker in situ Social History Tobacco Use Types Packs/Day Years Used Date Smoking Tobacco: Never Smokeless Tobacco: Never Comments:QUITE 35 YEARS AGO Alcohol Use Standard Drinks/Week Comments No 0 (1 standard drink = 0.6 oz pur e alcohol) Sex and Gender Information Value Date Recorded Sex Assigned at Not on file Legal Sex Male 10:31 PM GASSER MACHINE OPERATOR Gender Identity Not on file Sexual Orientation Not on file documented as of this encounter Plan of Treatment Pending Results Name Type Priority Associated Diagnoses Date /Time DEVICE CHECK - REMOTE Cardiac Services Routine Second degree AV block 07/13/2019 11:48 AM GASSER MACHINE OPERATOR documented as of this encounter Visit Diagnoses Diagnosis Second degree AV block Other second degree atrioventricular block Cardiac pacemaker in situ documented in this encounter Care Teams Operating Room Rn Relationship Specialty [place] [address] [address] PCP - General 12/25/14 03/21/24 documented as of this encounter
--- OUTSIDE RECORDS SUMMARY | 2024-07-10 20:01 | XMS_ITS | Encounter Summary ---
Author Organization [facility] Care Team Providers Care Production Expert Name Role Phone Real Gao MD Primary Care Provider + Encounter Details Date Type Department Care Team (Latest Contact Info) Description 12/28/2018 Travel Social History Tobacco Use Types Packs/Day Years Used Date Smoking Tobacco: Never Alcohol Use Standard Drinks/Week Comments No 0 (1 standard drink = 0.6 oz pur e alcohol) Sex and Gender Information Value Date Recorded Sex Assigned at Not on file Legal Sex Male 10:31 PM SHIPPING HELPER Gender Identity Not on file Sexual Orientation Not on file documented as of this encounter Plan of Treatment Not on file documented as of this encounter Visit Diagnoses Not on filedocumented in this encounter Care Teams Production Expert Relationship Specialty [place] [address] [facility] [place] [place] [address] PCP - General 12/25/14 03/21/24 documented as of this encounter
--- OUTSIDE RECORDS SUMMARY | 2024-07-10 20:01 | XMS_ITS | Encounter Summary ---
Author Organization [facility] Facility Care Team Providers Care Placement Coordinator Name Role Phone Real Gao MD Primary Care Provider + Encounter Details Date Type Department Care Team (Latest Contact Info) Description 02/07/2019 Travel Social History Tobacco Use Types Packs/Day Years Used Date Smoking Tobacco: Never Smokeless Tobacco: Never Comments:QUITE 35 YEARS AGO Alcohol Use Standard Drinks/Week Comments No 0 (1 standard drink = 0.6 oz pur e alcohol) Sex and Gender Information Value Date Recorded Sex Assigned at Not on file Legal Sex Male 10:31 PM MOVEMENT THERAPIST Gender Identity Not on file Sexual Orientation Not on file documented as of this encounter Plan of Treatment Not on file documented as of this encounter Visit Diagnoses Not on filedocumented in this encounter Care Teams Placement Coordinator Relationship Specialty [place] [address] [place] [address] PCP - General 12/25/14 03/21/24 documented as of this encounter
--- OUTSIDE RECORDS SUMMARY | 2024-07-10 20:01 | XMS_ITS | Encounter Summary ---
Author Organization [facility] Address [address] [facility] [address] [place] [address] Care Team Providers Care Translator Interpreter Name Role Phone Real Gao MD Primary Care Provider + Reason for Visit * Reason Comments Wound Check Encounter Details Date Type Department Care Team (Late st Contact Info) Description 12/02/2018 9:45 AM CDT Office Visit [facility] [address] [address] [address] [place] [phone] Visit for wound check Social History Tobacco Use Types Packs/Day Years Used Date Smoking Tobacco: Never Alcohol Use Standard Drinks/Week Comments No 0 (1 standard drink = 0.6 oz pur e alcohol) Sex and Gender Information Value Date Recorded Sex Assigned at Not on file Legal Sex Male 10:31 PM FIRE EXTINGUISHER INSPECTOR Gender Identity Not on file Sexual Orientation Not on file documented as of this encounter Ordered Prescriptions Prescription Sig Dispense Quantity Refills Last Filled Start Date End Date rivaroxaban (XARELTO) 20 mg tablet Take 1 tablet (20 mg total) by mouth daily 30 tablet 5 12/02/2018 08/24/2019 documented in this encounter Progress Notes * Raisa Jones RN - 12/02/2018 9:45 AM CDT Patient here for wound check post pacemaker implant. Aquacel dressing dry and intact to left upper chest. Dressing removed per protocol and incision WNL. No drainage, redness, or swelling noted. Mildbruising noted around pacemaker pocket. Patient had immobilizer in place upon arrival. Advised patient to continue to follow restrictions in regards to raising arm above shoulder level and to wear immobilizer at night if he feels he may raise his arm during sleep; otherwise if he is aware of these restrictions during the day he does not need to wear the immobilizer at all times. Patient informed that he can now shower. Do not rub or scrub the incision. Let the soapy water run over the incision and pat dry. Patient was also found to have a PE during hospitalization and was instructed to wait until wound check before starting AC. Spoke with SHANNON Leonard. Patient to start Xarelto starter pack which was provided to patient and will then take xarelto 20 mg daily thereafter. Will send in Rx to [facility] in [place] and patient provided with coupon. Upcoming appointment reminders given to patient. documented in this encounter Plan of Treatment Not on file documented as of this encounter Visit Diagnoses Diagnosis Visit for wound check documented in this encounter Care Teams Translator Interpreter Relationship Specialty [place] [address] [address] PCP - General 12/25/14 03/21/24 documented as of this encounter
--- OUTSIDE RECORDS SUMMARY | 2024-07-10 20:01 | XMS_ITS | Encounter Summary ---
Author Organization [facility] Address [address] [address] Care Team Providers Care Degreasing Wheel Operator Name Role Phone Real Gao MD Primary Care Provider + Reason for Referral * (Routine) - Closed Specialty Diagnoses / Procedures Referred By Contac t Referred To Contact Diagnoses Second degree AV block Procedures DEVICE CHECK - REMOTE Ruben Ashby MD Phone: tel: fax: [facility] Referral ID Status Reason Start Date Expiration Date Visits Re quested Visits Authorized [id number] Closed 12/28/2018 07/08/2020 1 1 * (Routine) - Closed Specialty Diagnoses / Procedures Referred By Contac t Referred To Contact Diagnoses Second degree AV block Procedures DEVICE CHECK - REMOTE Ruben Ashby MD Phone: tel: fax: [facility] Referral ID Status Reason Start Date Expiration Date Visits Re quested Visits Authorized [id number] Closed 12/28/2018 07/08/2020 1 1 * (Routine) - Closed Specialty Diagnoses / Procedures Referred By Contac t Referred To Contact Diagnoses Second degree AV block Procedures DEVICE CHECK - REMOTE Ruben Ashby MD Phone: tel: fax: [facility] Referral ID Status Reason Start Date Expiration Date Visits Re quested Visits Authorized [id number] Closed 12/28/2018 07/08/2020 1 1 Encounter Details Date Type Department Care Team (Late st Contact Info) Description 12/28/2018 Orders Only [facility] [phone] Ruben Ashby MD [address] [address] Second degree AV block (Primary Dx) Social History Tobacco Use Types Packs/Day Years Used Date Smoking Tobacco: Never Alcohol Use Standard Drinks/Week Comments No 0 (1 standard drink = 0.6 oz pur e alcohol) Sex and Gender Information Value Date Recorded Sex Assigned at Not on file Legal Sex Male 10:31 PM OFFICE MESSENGER HELPER Gender Identity Not on file Sexual Orientation Not on file documented as of this encounter Plan of Treatment Pending Results Name Type Priority Associated Diagnoses Date /Time DEVICE CHECK - REMOTE Cardiac Services Routine Second degree AV block 04/04/2019 8:55 AM CDT DEVICE CHECK - REMOTE Cardiac Services Routine Second degree AV block 07/13/2019 11:48 AM OFFICE MESSENGER HELPER DEVICE CHECK - REMOTE Cardiac Services Routine Second degree AV block 10/10/2019 1:26 PM CDT Scheduled Orders Name Type Priority Associated Diagnoses Orde r Schedule DEVICE CHECK - REMOTE Cardiac Services Routine Second degree AV block Expected: 03/29/2019, Expires: 12/29/2019 DEVICE CHECK - REMOTE Cardiac Services Routine Second degree AV block Expected: 06/28/2019, Expires: 12/29/2019 DEVICE CHECK - REMOTE Cardiac Services Routine Second degree AV block Expected: 09/27/2019, Expires: 12/29/2019 documented as of this encounter Visit Diagnoses Diagnosis Second degree AV block- Primary Other second degree atrioventricular block documented in this encounter Care Teams Degreasing Wheel Operator Relationship Specialty [place] [address] [facility] [address] PCP - General 12/25/14 03/21/24 documented as of this encounter
--- OUTSIDE RECORDS SUMMARY | 2024-07-10 20:01 | XMS_ITS | Encounter Summary ---
Author Organization [facility] Address [address] [address] Care Team Providers Care Certified Pharmacy Technician Name Role Phone Real Gao MD Primary Care Provider + Reason for Referral * (Routine) - Closed Specialty Diagnoses / Procedures Referred By Adelaida kamara Referred To Contact Diagnoses Second degree AV block Cardiac pacemaker in situ Procedures DEVICE CHECK - IN OFFICE Ruben Ashby MD [address] [address] Phone: tel: fax: [facility] Referral ID Status Reason Start Date Expiration Date Visits Re quested Visits Authorized [id number] Closed 01/17/2020 07/28/2021 1 1 Encounter Details Date Type Department Care Team (Late st Contact Info) Description 01/17/2020 Orders Only [facility] Cardiology [address] [place] [phone] Ruben Ashby MD [address] [address] Second degree AV block (Primary Dx); Cardiac pacemaker in situ Social History Tobacco Use Types Packs/Day Years Used Date Smoking Tobacco: Never Smokeless Tobacco: Never Comments:QUITE 35 YEARS AGO Alcohol Use Standard Drinks/Week Comments No 0 (1 standard drink = 0.6 oz pur e alcohol) Sex and Gender Information Value Date Recorded Sex Assigned at Not on file Legal Sex Male 10:31 PM 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 AP-13%, FRAME ASSEMBLER-100%. 23 mode switch episodes recorded, longest duration 2 min, iegm's ATach. No ventricular arrhythmias noted. No programming changes made to device settings. See scanned report. [employer] remote f/u 2021. ?? us Ruben Ashby MD CV CARDIAC SERVICES PROC EDURES Final Result documented in this encounter Visit Diagnoses Diagnosis Second degree AV block- Primary Other second degree atrioventricular block Cardiac pacemaker in situ Second degree AV block Other second degree atrioventricular block Cardiac pacemaker in situ documented in this encounter Care Teams Certified Pharmacy Technician Relationship Specialty [place] [address] [facility] [place] [place] [address] PCP - General 12/25/14 03/21/24 documented as of this encounter
--- OUTSIDE RECORDS SUMMARY | 2024-07-10 20:01 | XMS_ITS | Encounter Summary ---
Author Organization [facility] Address [address] [facility] [address] [place] [address] Care Team Providers Care Cloth Layer Name Role Phone Real Gao MD Primary Care Provider + Reason for Visit * (Routine) - Closed Specialty Diagnoses / Procedures Referred By Adelaida kamara Referred To Contact Diagnoses Second degree AV block, Mobitz type II Procedures DEVICE CHECK - IN OFFICE Ruben Ashby MD Phone: tel: fax: [facility] Referral ID Status Reason Start Date Expiration Date Visits Re quested Visits Authorized [id number] Closed 03/24/2019 10/02/2020 1 1 Encounter Details Date Type Department Care Team (Latest Contact Info) Description 01/17/2020 9:30 AM CDT Ancillary Procedure [facility] Medical [facility] Cardiology [address] [facility] [address] [place] [address] Second degree AV block, Mobitz type II; Cardiac pacemaker in situ Social History Tobacco Use Types Packs/Day Years Used Date Smoking Tobacco: Never Smokeless Tobacco: Never Comments:QUITE 35 YEARS AGO Alcohol Use Standard Drinks/Week Comments No 0 (1 standard drink = 0.6 oz pur e alcohol) Sex and Gender Information Value Date Recorded Sex Assigned at Not on file Legal Sex Male 10:31 PM 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 Dx; Second Degree AVB. DOI 11/26/2018-Symone. Biotronik remote monitoring, office checks Q1 yr. Office pacemaker evaluation demonstrated normal device function. Battery function-GEORGIE, 8 years 5 months estimated longevity. Presenting rhythm-ASVP. Underlying rhythm-CHB without ventricular escape @ DDI 30 bpm.. AP-12%, INDUSTRIAL MAINTENANCE MILLWRIGHT-100%. 9 mode switch episodes recorded, longest duration 2 min, iegm's ATach. No ventricular arrhythmias noted. No programming changes made today. See scanned report. [employer] f/u 04/23/2020. documented in this encounter Plan of Treatment Not on file documented as of this encounter Procedures Procedure Name Priority Date/Time Associated Diagnosis Comments DEVICE CHECK - IN OFFICE Routine 01/17/2020 9:10 AM CDT Second degree AV block, Mobitz type II documented in this encounter Results * DEVICE CHECK - IN OFFICE (01/17/2020 9:10 AM CDT) Anatomical Region Laterality Modality Other Narrative 02/07/2020 3:00 PM CDT Biotronik Dual Pacemaker. Dx; Second Degree AVB. DOI 11/26/2018-Symone. Biotronik remote monitoring, office checks Q1 yr. ? Office pacemaker evaluation demonstrated normal device function. Battery function-GEORGIE, 8 years 5 months estimated longevity. Presenting rhythm-ASVP. Underlying rhythm-CHB without ventricular escape @ DDI 30 bpm.. AP-12%, INDUSTRIAL MAINTENANCE MILLWRIGHT-100%. 9 mode switch episodes recorded, longest duration 2 min, iegm's ATach. No ventricular arrhythmias noted. No programming changes made today. See scanned report. [employer] f/u 04/23/2020. ?? us Ruben Ashby MD CV CARDIAC SERVICES PROC EDURES Final Result documented in this encounter Visit Diagnoses Diagnosis Second degree AV block, Mobitz type II Mobitz (type) II atrioventricular block Cardiac pacemaker in situ documented in this encounter Care Teams Cloth Layer Relationship Specialty [place] [address] [facility] [address] [place] [address] PCP - General 12/25/14 03/21/24 documented as of this encounter
--- OUTSIDE RECORDS SUMMARY | 2024-07-10 20:01 | XMS_ITS | Encounter Summary ---
Author Organization [facility] Healthcare Address [address] [place] [address] Care Team Providers Care Cosmetic Surgeon Name Role Phone Unavailable Primary Care Provider Unavailabl e Encounter Details Date Type Department Care Team (Late st Contact Info) Description 01/26/2009 7:13 AM CDT - 01/26/2009 11:59 PM CDT Hospital Encounter [facility] [address] [address] Other and unspecified hyperlipidemia; Special screening for malignant neoplasm of prostate Social History Tobacco Use Types Packs/Day Years Used Date Smoking Tobacco: Never Assessed Sex and Gender Information Value Date Recorded Sex Assigned at Not on file Legal 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
--- OUTSIDE RECORDS SUMMARY | 2024-07-10 20:01 | XMS_ITS | Encounter Summary ---
Author Organization [facility] Address [address] [place] [address] Care Team Providers Care Entry Level Administrative Assistant Name Role Phone Real Gao MD Primary Care Provider + Reason for Visit * (Routine) - Closed Specialty Diagnoses / Procedures Referred By Adelaida kamara Referred To Contact Diagnoses Second degree AV block Procedures DEVICE CHECK - REMOTE Ruben Ashby MD Phone: tel: fax: [facility] Referral ID Status Reason Start Date Expiration Date Visits Re quested Visits Authorized [id number] Closed 12/28/2018 07/08/2020 1 1 Encounter Details Date Type Department Care Team (Latest Contact Info) Description 10/10/2019 8:00 AM CDT Ancillary Procedure [facility] Cardiology [address] [place] [phone] Second degree AV block; Cardiac pacemaker in situ Social History Tobacco Use Types Packs/Day Years Used Date Smoking Tobacco: Never Smokeless Tobacco: Never Comments:QUITE 35 YEARS AGO Alcohol Use Standard Drinks/Week Comments No 0 (1 standard drink = 0.6 oz pur e alcohol) Sex and Gender Information Value Date Recorded Sex Assigned at Not on file Legal 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 Gender Identity Not on file Sexual Orientation Not on file documented as of this encounter Plan of Treatment Pending Results Name Type Priority Associated Diagnoses Date /Time DEVICE CHECK - REMOTE Cardiac Services Routine Second degree AV block 10/10/2019 1:26 PM CDT documented as of this encounter Visit Diagnoses Diagnosis Second degree AV block Other second degree atrioventricular block Cardiac pacemaker in situ documented in this encounter Care Teams Entry Level Administrative Assistant Relationship Specialty [place] [address] [address] PCP - General 12/25/14 03/21/24 documented as of this encounter
--- OUTSIDE RECORDS SUMMARY | 2024-07-10 20:01 | XMS_ITS | Encounter Summary ---
Author Organization [facility] Address [address] [facility] [address] [place] [address] Care Team Providers Care Director Of Channel Marketing Name Role Phone Real Gao MD Primary Care Provider + Encounter Details Date Type Department Care Team (Late st Contact Info) Description 11/26/2018 Orders Only [facility] [address] [place] [address] Scanning, Provider Social History Tobacco Use Types Packs/Day Years Used Date Smoking Tobacco: Never Alcohol Use Standard Drinks/Week Comments No 0 (1 standard drink = 0.6 oz pur e alcohol) Sex and Gender Information Value Date Recorded Sex Assigned at Not on file Legal 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 Gender Identity Not on file Sexual Orientation Not on file documented as of this encounter Plan of Treatment Not on file documented as of this encounter Procedures Procedure Name Priority Date/Time Associated Diagnosis Comments SCAN - RADIOLOGY/IMAGING 11/26/2018 documented in this encounter Results * SCAN - RADIOLOGY/IMAGING (11/26/2018) Anatomical Region Laterality Modality Other us Provider Scanning Final Result documented in this encounter Visit Diagnoses Not on filedocumented in this encounter Care Teams Director Of Channel Marketing Relationship Specialty [place] [address] [place] [address] PCP - General 12/25/14 03/21/24 documented as of this encounter
--- OUTSIDE RECORDS SUMMARY | 2024-07-10 20:01 | XMS_ITS | Encounter Summary ---
Author Organization [facility] Address [address] [address] Care Team Providers Care Website Optimization Strategist Name Role Phone Real Gao MD Primary Care Provider + Reason for Referral * Cardiology (Routine) - Closed Specialty Diagnoses / Procedures Referred By Adelaida kamara Referred To Contact Diagnoses Second degree AV block Procedures DEVICE CHECK - IN OFFICE Ruben Ashby MD [address] [address] Phone: tel: fax: [facility] Referral ID Status Reason Start Date Expiration Date Visits Re quested Visits Authorized [id number] Closed 07/23/2020 08/22/2021 1 1 RUMENT MECHANICS SUPERVISOR Encounter Details Date Type Department Care Team (Late st Contact Info) Description 07/23/2020 Orders Only [facility] Cardiology [address] [place] [phone] Ruben Ashby MD [address] [address] Second degree AV block (Primary Dx) Social History Tobacco Use Types Packs/Day Years Used Date Smoking Tobacco: Never Smokeless Tobacco: Never Comments:QUITE 35 YEARS AGO Alcohol Use Standard Drinks/Week Comments No 0 (1 standard drink = 0.6 oz pur e alcohol) Sex and Gender Information Value Date Recorded Sex Assigned at Not on file Legal Sex Male 10:31 PM INSTRUMENT MECHANICS SUPERVISOR Gender Identity Not on file Sexual Orientation Not on file documented as of this encounter Plan of Treatment Pending Results Name Type Priority Associated Diagnoses Date /Time DEVICE CHECK - IN OFFICE Cardiac Services Routine Second degree AV block 02/18/2022 8:38 AM CDT Scheduled Orders Name Type Priority Associated Diagnoses Orde r Schedule DEVICE CHECK - IN OFFICE Cardiac Services Routine Second degree AV block Expected: 01/20/2021, Expires: 08/04/2022 documented as of this encounter Visit Diagnoses Diagnosis Second degree AV block- Primary Other second degree atrioventricular block documented in this encounter Care Teams Website Optimization Strategist Relationship Specialty [place] [address] [address] PCP - General 12/25/14 03/21/24 documented as of this encounter
--- OUTSIDE RECORDS SUMMARY | 2024-07-10 20:01 | XMS_ITS | Encounter Summary ---
Author Organization [facility] Address [address] [facility] [address] [place] [address] Care Team Providers Care Forest Products Gatherer Name Role Phone Real Gao MD Primary Care Provider + Reason for Referral * (Routine) - Closed Specialty Diagnoses / Procedures Referred By Adelaida kamara Referred To Contact Procedures DEVICE CHECK - IN OFFICE [facility] [address] [facility] [address] [place] [address] Phone: tel: fax: Referral ID Status Reason Start Date Expiration Date Visits Re quested Visits Authorized [id number] Closed 11/30/2018 06/10/2020 1 1 Encounter Details Date Type Department Care Team (Late st Contact Info) Description 11/30/2018 Orders Only [facility] [address] [facility] [address] [place] [phone] Zakiya Bhardwaj MD [address] [place] [address] Social History Tobacco Use Types Packs/Day Years Used Date Smoking Tobacco: Never Alcohol Use Standard Drinks/Week Comments No 0 (1 standard drink = 0.6 oz pur e alcohol) Sex and Gender Information Value Date Recorded Sex Assigned at Not on file Legal Sex Male 10:31 PM UTILITY CLERK Gender Identity Not on file Sexual Orientation Not on file documented as of this encounter Plan of Treatment Not on file documented as of this encounter Procedures Procedure Name Priority Date/Time Associated Diagnosis Comments DEVICE CHECK - IN OFFICE Routine 11/26/2018 documented in this encounter Results * DEVICE CHECK - IN OFFICE (11/26/2018) Anatomical Region Laterality Modality Other us Historical Provider CV CARDIAC SERVICES [place] Final Result documented in this encounter Visit Diagnoses Not on filedocumented in this encounter Care Teams Forest Products Gatherer Relationship Specialty [place] [id number] [place] [address] PCP - General 12/25/14 03/21/24 documented as of this encounter
--- OUTSIDE RECORDS SUMMARY | 2024-07-10 20:01 | XMS_ITS | Encounter Summary ---
Author Organization [facility] Facility Care Team Providers Care Prenatal Genetic Counselor Name Role Phone Real Gao MD Primary Care Provider + Encounter Details Date Type Department Care Team (Latest Contact Info) Description 08/24/2019 Travel Social History Tobacco Use Types Packs/Day Years Used Date Smoking Tobacco: Never Smokeless Tobacco: Never Comments:QUITE 35 YEARS AGO Alcohol Use Standard Drinks/Week Comments No 0 (1 standard drink = 0.6 oz pur e alcohol) Sex and Gender Information Value Date Recorded Sex Assigned at Not on file Legal 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
--- OUTSIDE RECORDS SUMMARY | 2024-07-10 20:01 | XMS_ITS | Encounter Summary ---
Author Organization [facility] Medical Group Address [address] [place] [address] Care Team Providers Care Agriculture Internship Name Role Phone Real Gao MD Primary Care Provider + Encounter Details Date Type Department Care Team (Late st Contact Info) Description 11/25/2018 Orders Only [facility] Health Information Management [address] [place] [address] Scanning, Provider Social History Tobacco Use Types Packs/Day Years Used Date Smoking Tobacco: Never Alcohol Use Standard Drinks/Week Comments No 0 (1 standard drink = 0.6 oz pur e alcohol) Sex and Gender Information Value Date Recorded Sex Assigned at Not on file Legal Sex Male 10:31 PM SERVICES ENGINEER Gender Identity Not on file Sexual Orientation Not on file documented as of this encounter Plan of Treatment Not on file documented as of this encounter Procedures Procedure Name Priority Date/Time Associated Diagnosis Comments SCAN - RADIOLOGY/IMAGING 11/25/2018 documented in this encounter Results * SCAN - RADIOLOGY/IMAGING (11/25/2018) Anatomical Region Laterality Modality Other us Provider Scanning Edited Result - Final documented in this encounter Visit Diagnoses Not on filedocumented in this encounter Care Teams Agriculture Internship Relationship Specialty [place] [address] [facility] [place] [address] PCP - General 12/25/14 03/21/24 documented as of this encounter
--- OUTSIDE RECORDS SUMMARY | 2024-07-10 20:01 | XMS_ITS | Encounter Summary ---
Author Organization [facility] Medical Group Address [address] [facility] [address] [place] [address] Care Team Providers Care Finance Effectiveness Manager Name Role Phone Real Gao MD Primary Care Provider + Reason for Visit * Reason Comments Hospital Follow Up PACEMAKER Encounter Details Date Type Department Care Team (Late st Contact Info) Description 02/07/2019 11:15 AM CDT Office Visit [facility] [address] [facility] [address] [facility] [address] [place] [address] Ruben Ashby MD [address] [facility] [address] [place] [address] Second degree AV block, Mobitz [...] on file Legal 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 Male 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 Gender Identity Not on file Sexual Orientation Not on file documented as of this encounter Last Filed Vital Signs Vital Sign Reading Time Taken Comments Blood Pressure 132/68 02/07/2019 11:04 AM CDT Pulse 80 02/07/2019 11:04 AM CDT Temperature - - Respiratory Rate - - Oxygen Saturation 96% 02/07/2019 11:04 AM CDT Inhaled Oxygen Concentration - - Weight 84.4 kg (186 lb) 02/07/2019 11:04 AM CDT Height 177.8 cm (5' 10 ) 02/07/2019 11:04 AM CDT Body Mass Index 26.69 02/07/2019 11:04 AM CDT documented in this encounter Progress Notes * Ruben Ashby MD - 02/07/2019 11:15 AM CDT [facility] FOLLOW UP 02/07/2019 Jose Alexandre is a 63 y.o. male who presents for follow up of second-degree AV block and recently implanted pacemaker. This is a patient that I saw in consultation at [facility] in November of 2018 after having 2 syncopal episodes at home. He was found to have second-degree AV block and trifascicular disease on his ECG. Following that presentation he received a Biotronik dual- chamber pacemaker uneventfully and returns today for follow-up. Past medical history was otherwise remarkable for hypertension and a history of focal focal glomerulosclerosis. The patient feels very well and does not have any complaints he has not had a syncopal episode since his device implantation. He has no cardiovascular symptoms at all. He did talk to me about some length about his anticoagulation. I told the patient that in May he will have completed 6 months of systemic anticoagulation at that time I would think Xarelto can be discontinued. I thought that the evidence of a pulmonary embolism on his hospital stay was questionable at best REVIEW OF SYSTEMS General ROS: negative for [...] rash HOME MEDICATIONS Current Outpatient Medications: ??? finasteride (PROSCAR) 5 mg tablet, 1 tablet daily, Disp: , Rfl: 3 ??? rivaroxaban (XARELTO) 20 mg tablet, Take 1 tablet (20 mg total) by mouth daily, Disp: 30 tablet, Rfl: 5 ??? simvastatin (ZOCOR) 20 mg tablet, 1 [...] for component: LABALBU PHYSICAL EXAM Vitals BP 132/68 (BP Location: Right arm, Patient Position: Sitting) Pulse 80 Ht 177.8 cm (5' 10 ) Wt 84.4 kg (186 lb) SpO2 96% BMI 26.69 kg/m?? Physical Examination: General appearance [...] noted ASSESSMENT Jose was seen today for hospital follow up. Diagnoses and all orders for this visit: Second degree AV block, Mobitz type II Cardiac pacemaker in situ PLAN/RECOMMENDATIONS Discontinue Xarelto in May after 6 months of treatment Follow-up with me in 6 months Continue follow-up in pacemaker Clinic as scheduled Ruben Ashby MD documented in this encounter Miscellaneous Notes * Addendum Note - Pia Bhatt MA - 02/07/2019 11:15 AM CDTAddended by: PIA BHATT on: 02/07/2019 05:47 PM Modules accepted: Orders documented in this encounter Plan of Treatment Not on file documented as of this encounter Procedures Procedure Name Priority Date/Time Associated Diagnosis Comments POCT LIPID PANEL Routine 02/07/2019 5:46 PM CDT Second degree AV block, Mobitz type II Cardiac pacemaker in situ documented in this encounter Results * POCT lipid panel (02/07/2019 5:46 PM CDT) Cholesterol, POC 155 mg/dL HDL, POC 41 mg/dL Triglycerides, POC 130 mg/dL LDL Cholesterol POC 87 mg/dL Chol/HDL Ratio, POC 3.7 Non-HDL Cholesterol, POC 113 mg/dL Cholesterol Total, POC 155 mg/dL Blood specimen (specimen) 02/07/2019 5:46 PM CDT us Ruben Ashby MD POINT OF CARE TEST ORDER SEUN Final Result documented in this encounter Visit Diagnoses Diagnosis Second degree AV block, Mobitz type II- Primary Mobitz (type) II atrioventricular block Cardiac pacemaker in situ documented in this encounter Historical Medications * This list may reflect changes made after this encounter. finasteride (PROSCAR) 5 mg tablet 1 tablet (5 mg total) daily 3 12/19/2018 simvastatin (ZOCOR) 20 mg tablet 1 tablet (20 mg total) nightly 02/07/2019 tamsulosin (FLOMAX) 0.4 mg extended release capsule 1 capsule (0.4 mg total) daily 3 12/19/2018 added in this encounter Care Teams Finance Effectiveness Manager Relationship Specialty [place] [address] [address] PCP - General 12/25/14 03/21/24 documented as of this encounter
--- OUTSIDE RECORDS SUMMARY | 2024-07-10 20:01 | XMS_ITS | Encounter Summary ---
Author Organization [facility] Medical Group Address [address] [address] Care Team Providers Care Invoice Clerk Name Role Phone Real Gao MD Primary Care Provider + Reason for Visit * (Routine) - Closed Specialty Diagnoses / Procedures Referred By Adelaida kamara Referred To Contact Diagnoses Second degree AV block Procedures DEVICE CHECK - REMOTE Ruben Ashby MD [address] [address] Phone: tel: fax: [facility] Referral ID Status Reason Start Date Expiration Date Visits Re quested Visits Authorized [id number] Closed 04/23/2020 05/23/2021 1 1 Encounter Details Date Type Department Care Team (Latest Contact Info) Description 07/23/2020 8:15 AM PROBATION WORKER Ancillary Procedure [facility] Medical [facility] Cardiology [address] [facility] [address] [place] [phone] Second degree AV block; Cardiac pacemaker in situ Social History Tobacco Use Types Packs/Day Years Used Date Smoking Tobacco: Never Smokeless Tobacco: Never Comments:QUITE 35 YEARS AGO Alcohol Use Standard Drinks/Week Comments No 0 (1 standard drink = 0.6 oz pur e alcohol) Sex and Gender Information Value Date Recorded Sex Assigned at Not on file Legal Sex Male 10:31 PM PROBATION WORKER Gender Identity Not on file Sexual Orientation Not on file documented as of this encounter Progress Notes * Karolina Butts RN - 07/23/2020 8:15 AM CST Biotronik Dual Pacemaker. Dx; Second Degree AVB. DOI 11/26/2018-Symone. Biotronik remote monitoring, office checks Q1 yr. Routine Pacemaker remote. Normal device function. Battery function-ok, 85% estimated remaining longevity. Appropriate lead measurements. Presenting rhythm-ASVP. AP-11%, SALES REVIEW CLERK-100%. No atrial high rate episodes noted. No ventricular high rate episodes noted Medications; Lisinopril, Zocor, ASA. See scanned report. Biotronik remote f/u 10/22/2020. Office pacemaker f/u 02/19/2021. ATION WORKER documented in this encounter Plan of Treatment Not on file documented as of this encounter Procedures Procedure Name Priority Date/Time Associated Diagnosis Comments DEVICE CHECK - REMOTE Routine 07/23/2020 11:20 AM PROBATION WORKER Second degree AV block documented in this encounter Results * DEVICE CHECK - REMOTE (07/23/2020 11:20 AM PROBATION WORKER) Anatomical Region Laterality Modality Other Narrative 08/30/2020 7:44 AM PROBATION WORKER Biotronik Dual Pacemaker. Dx; Second Degree AVB. DOI 11/26/2018-Symone. Biotronik remote monitoring, office checks Q1 yr. ? Routine Pacemaker remote. Normal device function. Battery function-ok, 85% estimated remaining longevity. Appropriate lead measurements. Presenting rhythm-ASVP. AP-11%, SALES REVIEW CLERK-100%. No atrial high rate episodes noted. No [...] situ documented in this encounter Care Teams Invoice Clerk Relationship Specialty [place] [address] [facility] [place] [address] PCP - General 12/25/14 03/21/24 documented as of this encounter
--- OUTSIDE RECORDS SUMMARY | 2024-07-10 20:01 | XMS_ITS | Encounter Summary ---
Author Organization [facility] Healthcare Address [address] [place] [address] Care Team Providers Care Periodicals Library Assistant Name Role Phone Axel Das MD Primary Care Provider + Encounter Details Date Type Department Care Team (Latest Contact Info) Description 03/19/2017 8:30 AM CDT - 03/19/2017 11:59 PM CDT Hospital Encounter [place] [address] [facility] [place] [address] Discharge Disposition: Discharge to home or self care Social History Tobacco Use Types Packs/Day Years Used Date Smoking Tobacco: Never Alcohol Use Standard Drinks/Week Comments No 0 (1 standard drink = 0.6 oz pur e alcohol) Sex and Gender Information Value Date Recorded Sex Assigned at Not on file 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 Gender Identity Not on file Sexual Orientation Not on file documented as of this encounter Discharge Disposition Disposition Code Departure Means Destination Discharge to home or self care documented in this encounter Plan of Treatment Not on file documented as of this encounter Procedures Procedure Name Priority Date/Time Associated Diagnosis Comments XR CHEST PA LATERAL 2 VIEWS Routine 03/19/2017 1:54 PM CDT documented in this encounter Results * XR Chest Pa Lateral 2 Views (03/19/2017 1:54 PM CDT) Anatomical Region Laterality Modality Body, Chest N/A Radiographic Tamiko ging 03/19/2017 1:54 PM CDT Narrative 03/19/2017 1:54 PM CDT XR Chest 2 Views ?[id number] ??Acc#: ??[id number] DATE OF EXAM: ??Mar 19 2017 ?? XR Chest 2 Views ?[id number] HISTORY: COUGH. COMPARISON: None available. FINDINGS: Heart size is normal. ??No infiltrate or effusion identified. ??Minimal atelectasis/scarring lung bases. Atherosclerotic changes of aorta. IMPRESSION: MINIMAL BIBASILAR ATELECTASIS/SCARRING. Electronically signed by: Aleta Downey M.D Interpreting Physician: ??ALETA DOWNEY M.D. ??Read on: ??Mar 19 2017 ??9:22A Transcribed by: ??PSC ??On: Mar 19 2017 ??9:20A Approved Electronically by: ??ALETA DOWNEY M.D. ??on: ??Mar 19 2017 ??9:20A Ordering DR: DR AXEL DAS Attending DR: AXEL NELSON Attending: ??AXEL ARRIAGA Requesting: ??DR AXEL DAS Requesting Fax: ??[phone] Attending Fax: ??-- Attending ID: ??[id number] Requesting ID: ??[id number] Report To 1 ID: ??[id number] Report To 1 Name: ??AXEL ARRIAGA Report To 1 FAX: ??-- NextGen Order #: ?? Procedure Note Miscellaneous, Not In File / Provider, MD Zakiya - 03/19/2017 XR Chest 2 Views [id number] Acc#: [id number] DATE OF EXAM: Mar 19 2017 XR Chest 2 Views [id number] HISTORY: COUGH. COMPARISON: None available. FINDINGS: Heart size is normal. No infiltrate or effusion identified. Minimal atelectasis/scarring lung bases. Atherosclerotic changes of aorta. IMPRESSION: MINIMAL BIBASILAR ATELECTASIS/SCARRING. Electronically signed by: Aleta Downey M.D Interpreting Physician: ALETA DOWNEY M.D. Read on: Mar 19 2017 9:22A Transcribed by: PSC On: Mar 19 2017 9:20A Approved Electronically by: ALETA DOWNEY M.D. on: Mar 19 2017 9:20A Ordering DR: DR AXEL DAS Attending DR: AXEL NELSON Attending: AXEL ARRIAGA Requesting: DR AXEL DAS Requesting Attending Fax: -- Attending ID: [id number] Requesting ID: [id number] Report To 1 ID: [id number] Report To 1 Name: AXEL ARRIAGA Report To 1 FAX: -- NextGen Order #: us Not In File Miscellaneous IMG XR PROCEDURES Aria l Result documented in this encounter Visit Diagnoses Not on filedocumented in this encounter Care Teams Periodicals Library Assistant Relationship Specialty [place] [address] [place] [address] PCP - General 12/25/14 03/21/24 documented as of this encounter
--- OUTSIDE RECORDS SUMMARY | 2024-07-10 20:01 | XMS_ITS | Encounter Summary ---
Author Organization [facility] Medical Group Address [address] [facility] [address] [place] [address] Care Team Providers Care Supervisor Finishing Department Name Role Phone Real Gao MD Primary Care Provider + Reason for Visit * (Routine) - Closed Specialty Diagnoses / Procedures Referred By Adelaida kamara Referred To Contact Diagnoses SSS (sick sinus syndrome) (CMS/HCC) ([facility]) Procedures DEVICE CHECK - IN OFFICE Ruben Ashby MD Phone: tel: fax: [facility] Medical Group Referral ID Status Reason Start Date Expiration Date Visits Re quested Visits Authorized [id number] Closed 11/25/2018 06/05/2020 1 1 Encounter Details Date Type Department Care Team (Latest Contact Info) Description 12/28/2018 1:30 PM CDT Ancillary Procedure [facility] Medical [facility] Cardiology [address] [place] [address] SSS (sick sinus syndrome) (CMS/HCC); Cardiac pacemaker in situ Social History Tobacco Use Types Packs/Day Years Used Date Smoking Tobacco: Never Alcohol Use Standard Drinks/Week Comments No 0 (1 standard drink = 0.6 oz pur e alcohol) Sex and Gender Information Value Date Recorded Sex Assigned at Not on file 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 Dx; Second Degree AVB. DOI 11/26/2018-Martinner. Biotronik remote monitoring, office checks Q1 yr. Left pectoral incision healing well without signs of infection. Office pacemaker evaluation demonstrated normal device function. Battery function-GEORGIE, 9 years 6 months estimated longevity. Presenting rhythm-ASVP. Underlying rhythm-AV Block 2nd-3rd Degree. AP-12%, UNLOADER OPERATOR-99%. No mode switch episodes recorded. No ventricular arrhythmias noted. No programming changes made today. See scanned report. ACTONronik [employer] f/u 04/04/2019. documented in this encounter Plan of Treatment Not on file documented as of this encounter Procedures Procedure Name Priority Date/Time Associated Diagnosis Comments DEVICE CHECK - IN OFFICE Routine 12/28/2018 12:31 PM CDT SSS (sick sinus syndrome) (CMS/HCC) documented in this encounter Results * DEVICE CHECK - IN OFFICE (12/28/2018 12:31 PM CDT) Anatomical Region Laterality Modality Other Narrative 02/02/2019 7:36 AM CDT Biotronik Dual Pacemaker. Dx; Second Degree AVB. DOI 11/26/2018-Symone. Biotronik remote monitoring, office checks Q1 yr. ?? Left pectoral incision healing well without signs of infection. Office pacemaker evaluation demonstrated normal device function. Battery function-GEORGIE, 9 years 6 months estimated longevity. Presenting rhythm-ASVP. Underlying rhythm-AV Block 2nd-3rd Degree. AP-12%, UNLOADER OPERATOR-99%. No mode switch episodes recorded. No ventricular arrhythmias noted. No programming changes made today. See scanned report. [employer] f/u 04/04/2019. ?? Ruben Ashby MD [facility] PROC EDURES Final Result documented in this encounter Visit Diagnoses Diagnosis SSS (sick sinus syndrome) (CMS/HCC) (HCC) Sinoatrial node dysfunction Cardiac pacemaker in situ documented in this encounter Care Teams Supervisor Finishing Department Relationship Specialty [place] [address] [facility] [address] [place] [address] PCP - General 12/25/14 03/21/24 documented as of this encounter
--- OUTSIDE RECORDS SUMMARY | 2024-07-10 20:01 | XMS_ITS | Encounter Summary ---
Author Organization [facility] Medical Group Address [address] [address] Care Team Providers Care Undercoater Name Role Phone Real Gao MD Primary Care Provider + Reason for Referral * (Routine) - Closed Specialty Diagnoses / Procedures Referred By Adelaida kamara Referred To Contact Diagnoses Second degree AV block, Mobitz type II Procedures DEVICE CHECK - IN OFFICE Ruben Ashby MD Phone: tel: fax: [facility] Medical Group Referral ID Status Reason Start Date Expiration Date Visits Re quested Visits Authorized [id number] Closed 03/24/2019 10/02/2020 1 1 Encounter Details Date Type Department Care Team (Late st Contact Info) Description 03/24/2019 Orders Only [facility] Medical Group Cardiology [address] [address] Ruben Ashby MD [address] [address] Second degree AV block, Mobitz type II (Primary Dx) Social History Tobacco Use Types Packs/Day Years Used Date Smoking Tobacco: Never Smokeless Tobacco: Never Comments:QUITE 35 YEARS AGO Alcohol Use Standard Drinks/Week Comments No 0 (1 standard drink = 0.6 oz pur e alcohol) Sex and Gender Information Value Date Recorded Sex Assigned at Not on file 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 AP-12%, NEPHROLOGY NURSE-100%. 9 mode switch episodes recorded, longest duration 2 min, iegm's ATach. No ventricular arrhythmias noted. No programming changes made today. See scanned report. Biotronik remote f/u 04/23/2020. ?? us Ruben Ashby MD [facility] C[facility] SERVICES PROC EDURES Final Result documented in this encounter Visit Diagnoses Diagnosis Second degree AV block, Mobitz type II- Primary Mobitz (type) II atrioventricular block Second degree AV block, Mobitz type II Mobitz (type) II atrioventricular block Cardiac pacemaker in situ documented in this encounter Care Teams Undercoater Relationship Specialty [place] [address] [facility] [address] [place] [address] PCP - General 12/25/14 03/21/24 documented as of this encounter
--- OUTSIDE RECORDS SUMMARY | 2024-07-10 20:01 | XMS_ITS | Encounter Summary ---
Author Organization [facility] Medical Group Address [address] [facility] [address] [place] [address] Care Team Providers Care Workers Compensation Claims Assistant Name Role Phone Real Gao MD Primary Care Provider + Reason for Visit * Reason Comments Follow-up 6 mo f/u on AVB Encounter Details Date Type Department Care Team (Late st Contact Info) Description 03/07/2020 8:15 AM CDT Office Visit [facility] Medical Group Cardiology [address] [facility] [address] [place] [id number] Ruben Ashby MD [address] [facility] [address] [place] [address] Second degree AV block, Mobitz type II [...] on file 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 Gender Identity Not on file Sexual Orientation Not on file documented as of this encounter Last Filed Vital Signs Vital Sign Reading Time Taken Comments Blood Pressure 128/84 03/07/2020 8:09 AM CDT Pulse 74 03/07/2020 8:09 AM CDT Temperature - - Respiratory Rate - - Oxygen Saturation 97% 03/07/2020 8:09 AM CDT Inhaled Oxygen Concentration - - Weight 84.4 kg (186 lb) 03/07/2020 8:09 AM CDT Height 177.8 cm (5' 10 ) 03/07/2020 8:09 AM CDT Body Mass Index 26.69 03/07/2020 8:09 AM CDT documented in this encounter Progress Notes * Ruben Ashby MD - 03/07/2020 8:15 AM CDT [facility] 03/07/2020 Jose Alexandre is a 64 y.o. male who presents for follow up of second-degree AV block and recently implanted pacemaker. This is a patient that I saw in consultation at [facility] in November of 2018 after having [...] has no complaints at all. The patient is doing extremely well he has no cardiovascular complaints. His pacemaker device is only a year and 3-month-old and is functioning normally. He had some questions about what will require when he has to have a generator change we talked about that at some length. Obviously that is quite a few years away at this point REVIEW OF SYSTEMS General ROS: negative for [...] lab exists for component: LABALBU PHYSICAL EXAM There were no vitals taken for this visit. Physical Examination: General appearance - alert, well [...] II Cardiac pacemaker in situ PLAN/RECOMMENDATIONS Follow-up annually or p.r.n. Continue follow-up in pacemaker Clinic as scheduled Ruben Ashby MD documented in this encounter Miscellaneous Notes * Addendum Note - Brittanie Bonilla MA - 03/07/2020 8:15 AM CDTAddended by: BRITTANIE BONILLA on: 03/07/2020 09:20 AM Modules accepted: Orders documented in this encounter Plan of Treatment Not on file documented as of this encounter Procedures Procedure Name Priority Date/Time Associated Diagnosis Comments POCT LIPID PANEL Routine 03/07/2020 9:20 AM CDT Lipid screening documented in this encounter Results * POCT lipid panel (03/07/2020 9:20 AM CDT) Cholesterol, POC 142 mg/dL HDL, POC 45 mg/dL Triglycerides, POC 107 mg/dL LDL Cholesterol POC 75 mg/dL Chol/HDL Ratio, POC 3.1 Non-HDL Cholesterol, POC 97 mg/dL Cholesterol Total, POC 142 mg/dL Capillary blood 03/07/2020 9 :20 AM CDT us Ruben Ashby MD POINT OF CARE TEST ORDER SEUN Final Result documented in this encounter Visit Diagnoses Diagnosis Second degree AV block, Mobitz type II- Primary Mobitz (type) II atrioventricular block Cardiac pacemaker in situ Lipid screening Screening for lipoid disorders documented in this encounter Care Teams Workers Compensation Claims Assistant Relationship Specialty [place] [address] [address] PCP - General 12/25/14 03/21/24 documented as of this encounter
--- OUTSIDE RECORDS SUMMARY | 2024-07-10 20:01 | XMS_ITS | Encounter Summary ---
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
--- OUTSIDE RECORDS SUMMARY | 2024-07-10 20:01 | XMS_ITS | Encounter Summary ---
Author Organization [facility] Address [address] [address] Care Team Providers Care Press Writer Name Role Phone Real Gao MD Primary Care Provider + Reason for Visit * (Routine) - Closed Specialty Diagnoses / Procedures Referred By Adelaida kamara Referred To Contact Diagnoses Second degree AV block Procedures DEVICE CHECK - REMOTE Ruben Ashby MD [address] [address] Phone: tel: fax: [facility] Referral ID Status Reason Start Date Expiration Date Visits Re quested Visits Authorized [id number] Closed 07/13/2019 01/21/2021 1 1 Encounter Details Date Type Department Care Team (Latest Contact Info) Description 04/23/2020 7:15 AM CDT Ancillary Procedure [facility] Cardiology [facility] [address] [place] [phone] Second degree AV block; Cardiac pacemaker in situ Social History Tobacco Use Types Packs/Day Years Used Date Smoking Tobacco: Never Smokeless Tobacco: Never Comments:QUITE 35 YEARS AGO Alcohol Use Standard Drinks/Week Comments No 0 (1 standard drink = 0.6 oz pur e alcohol) Sex and Gender Information Value Date Recorded Sex Assigned at Not on file 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 Dx; Second Degree AVB. DOI 11/26/2018-Symone. Biotronik remote monitoring, office checks Q1 yr. Routine Pacemaker remote. Normal device function. Battery function- estimated remaining longevity. Appropriate lead measurements. Presenting rhythm-ASVP. AP-12%, SMOKEHOUSE WORKER-100%. No atrial high rate episodes noted. No ventricular high rate episodes noted Medications; Lisinopril, Zocor, ASA. See scanned report. Biotronik remote f/u 07/23/2020. R PURIFIER documented in this encounter Plan of Treatment Not on file documented as of this encounter Procedures Procedure Name Priority Date/Time Associated Diagnosis Comments DEVICE CHECK - REMOTE Routine 04/23/2020 1:36 PM CDT Second degree AV block documented in this encounter Results * DEVICE CHECK - REMOTE (04/23/2020 1:36 PM CDT) Anatomical Region Laterality Modality Other Narrative 05/23/2020 1:17 PM WATER PURIFIER Biotronik Dual Pacemaker. Dx; Second Degree AVB. DOI 11/26/2018-Symone. Biotronik remote monitoring, office checks Q1 yr. ? Routine Pacemaker remote. Normal device function. Battery function- estimated remaining longevity. Appropriate lead measurements. Presenting rhythm-ASVP. AP-12%, SMOKEHOUSE WORKER-100%. No atrial high rate episodes noted. No ventricular high rate episodes noted Medications; Lisinopril, Zocor, ASA. See scanned report. Biotronik remote f/u 07/23/2020. Ruben Ashby MD [facility] PROC EDURES Final Result documented in this encounter Visit Diagnoses Diagnosis Second degree AV block Other second degree atrioventricular block Cardiac pacemaker in situ documented in this encounter Care Teams Press Writer Relationship Specialty [place] [address] [facility] [place] [address] PCP - General 12/25/14 03/21/24 documented as of this encounter
--- OUTSIDE RECORDS SUMMARY | 2024-07-10 20:01 | XMS_ITS | Encounter Summary ---
Author Organization [facility] Address [address] [facility] [address] [place] [id number] Care Team Providers Care Adobe Architect Name Role Phone Real Goa MD Primary Care Provider + Reason for Referral * (Routine) - Closed Specialty Diagnoses / Procedures Referred By Adelaida kamara Referred To Contact Diagnoses Second degree AV block Procedures DEVICE CHECK - REMOTE Ruben Ashby MD [address] [address] Phone: tel: fax: [facility] Referral ID Status Reason Start Date Expiration Date Visits Re quested Visits Authorized [id number] Closed 07/13/2019 01/21/2021 1 1 CTOR ENTERPRISE DATA ARCHITECTURE Encounter Details Date Type Department Care Team (Late st Contact Info) Description 07/13/2019 Orders Only [facility] Cardiology [address] [place] [phone] Ruben Ashby MD [address] [address] Second degree AV block (Primary Dx) Social History Tobacco Use Types Packs/Day Years Used Date Smoking Tobacco: Never Smokeless Tobacco: Never Comments:QUITE 35 YEARS AGO Alcohol Use Standard Drinks/Week Comments No 0 (1 standard drink = 0.6 oz pur e alcohol) Sex and Gender Information Value Date Recorded Sex Assigned at Not on file 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 Dx; Second Degree AVB. DOI 11/26/2018-Symone. Biotronik remote monitoring, office checks Q1 yr. ? Routine Pacemaker remote. Normal device function. Battery function- estimated remaining longevity. Appropriate lead measurements. Presenting rhythm-ASVP. AP-12%, QA AUTOMATION DEVELOPER-100%. No atrial high rate episodes noted. No [...] situ documented in this encounter Care Teams Adobe Architect Relationship Specialty [place] [address] [facility] [place] [address] PCP - General 12/25/14 03/21/24 documented as of this encounter
== END 2024-07-03 17:31 | disposition home or self-care (01) ==
PROVIDERS: Emergency Provider Family Medicine; PCP Student in an Organized Health Care Education/Training Program
DX: D50.9 Iron deficiency anemia, unspecified (principal); I10 Essential (primary) hypertension; E11.9 Type 2 diabetes mellitus without complications; E78.5 Hyperlipidemia, unspecified; Z87.891 Personal history of nicotine dependence; Z79.899 Other long term (current) drug therapy; Z79.82 Long term (current) use of aspirin
CPT/HCPCS: 36415; 36430; 80053; 82607; 82747; 83540; 83550; 85014; 85018; 85025; 85046; 85610; 86850; 86900; 86901; 86923; 96360; 96361; 99283; 99285; J7050; P9016